=== PATIENT | male | born 1950 | race Caucasian/White ===

== ENCOUNTER 2016-10-22 13:59 | Inpatient (IN) | payer MEDICARE, OTHER ==
[~2016-10-22] VITALS: Ht 170.2 cm; Wt 76.0 kg
[~2016-10-22 13:59] MED LIST: GLIM2TAB PO; LANS30CA47 PO; METF500T4 PO; PROP40TA4 PO; TYL500 PO
[2016-10-22] MEDS ORDERED: morphine 2 MG INJ IV STA (14:44)
[2016-10-22] MEDS ORDERED: morphine 4 MG/ML VIAL IV STA (14:44)
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
[2016-10-22 15:43] LABS: ADD SCAN DIFF NO
[2016-10-22 15:46] LABS: HEMATOCRIT 43.2 % (42.0-52.0); MEAN CORPUSCULAR HEMOGLOBIN 27.3 pg (29.0-33.0); MEAN CORPUSCULAR HGB CONC 32.4 g/dl (32.0-37.0); MEAN CORPUSCULAR VOLUME 84.2 fl (82.0-101.0); PLATELET COUNT 140 10^3/UL (140-415); RED BLOOD COUNT 5.13 10^6/ul (4.70-6.10); RED CELL DISTRIBUTION WIDTH 12.7 % (11.5-14.5); WHITE BLOOD COUNT 7.6 10^3/ul (4.8-10.8)
[2016-10-22 16:01] LABS: INR 0.94; PROTIME 12.6 Sec (12.2-14.2)
[2016-10-22 16:02] LABS: MEAN PLATELET VOLUME 10.5 fl (7.4-10.4); PARTIAL THROMBOPLASTIN TIME 25.9 Sec (25.0-35.0)
[2016-10-22 16:06] LABS: ALBUMIN 4.9 g/dl (3.3-4.9); ALBUMIN/GLOBULIN RATIO 1.96; BILIRUBIN,INDIRECT 0.4 mg/dl (0-1.1); BILIRUBIN,TOTAL 0.4 mg/dl (0.2-1.3); CALCIUM 9.6 mg/dl (8.4-10.2); CREATININE 0.99 mg/dl (0.61-1.24); POTASSIUM 4.4 mmol/L (3.5-5.1); TOTAL PROTEIN 7.4 g/dl (6.1-8.1)
--- NOTE | 2016-10-22 16:38 | RADRPT ---
PROCEDURE: XR Hip. CLINICAL INDICATION: Trauma with pain. TECHNIQUE: AP and frog lateral views of the right hip were performed. COMPARISON: No. FINDINGS: A metal clip projects over the right ilium. There are degenerative changes and mild joint space sharon rowing of the right hip. No acute bony fracture is identified. The right SI joint is unremarkable. IMPRESSION: 1. Osteoarthritis of the right hip. 2. Right lower quadrant clip likely related to prior cholecystectomy. 3. No acute bony fracture. RPTAT:AAJJ Physician Antionette Date Time Electronically viewed and signed by Michoacano Lezama Physician on 10/22/2016 16:38 JESUS/
[2016-10-22] MEDS ORDERED: ONDANSETRON (ODT) 4 MG TAB ODT STA (16:45)
[2016-10-22] MEDS ORDERED: HYDROCODONE/APAP (10/325) TAB PO ONE (17:00)
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
[2016-10-22] MEDS ORDERED: METF500T4 PO (18:07)
[2016-10-22] MEDS ORDERED: PROP40TA4 PO (18:07)
[2016-10-22] MEDS ORDERED: PROP20TA4 PO (18:07)
[2016-10-22] MEDS ORDERED: GLIM2TAB PO (18:08)
[2016-10-22 18:11] LABS: EOSINOPHILS # 0.2 10^3/ul (0.0-0.5); LYMPHOCYTES # 1.5 10^3/ul (0.8-2.9); MONOCYTE # 0.2 10^3/ul (0.3-0.9); NEUTROPHIL # 5.6 10^3/ul (1.6-7.5)
[2016-10-22] MEDS ORDERED: DOCUSATE SODIUM 100 MG CAP PO PRN (19:00)
[2016-10-22] MEDS ORDERED: BISACODYL (EC) 5 MG TAB PO PRN (19:00)
[2016-10-22] MEDS ORDERED: ACETAMINOPHEN 325 MG TAB PO PRN (19:00)
[2016-10-22] MEDS ORDERED: NACL 0.9% 3 ML SYG IV SCH (19:00)
[2016-10-22] MEDS ORDERED: BISACODYL 10 MG SUPP PR PRN (19:00)
[2016-10-22] MEDS ORDERED: MAGNESIUM HYDROXIDE 30ML CUP PO PRN (19:00)
[2016-10-22] MEDS ORDERED: NA PHOSPHATE/BIPHOS 133 ML ENEMA PR PRN (19:00)
--- NOTE | 2016-10-22 19:07 | HP ---
Date/Time of Note Date/Time of Note DATE: 10/22/16 TIME: 19:01 Assessment/Plan VTE Prophylaxis VTE Prophylaxis Intervention: SCD's Assessment/Plan Assessment/Plan 66 yo M with pmhx DM2 on PO meds, HTN presented for R leg pain following a fall , found to have R femoral fracture #femur fracture: Dr Ramirez of ortho to see for possible operative intervention Pre Op: per revised risk cardiac index as pt does not have a h/o stroke, CA, CHF , CKD with baseline Cr>2, is not on insulin at home, does not currently have chest pain and has a functional status of >4 mets as evidence by ability to climb a flight of stairs, no further cardiac preoperative testing is indicated for an intermediate risk procedure #DM2: hold oral meds a1c, ssi while NPO #HTN: cont bb FEN NPO pending surgical eval prophx: SCDs only given possible surgery HPI/ROS Admit Date/Time Admit Date/Time Hx of Present Illness 66 yo M with pmhx DM2 on PO meds only, HTN admitted following a mechanical fall earlier today with resultant R leg pain. Pt tripped over a rock in a parking lot at 1 pm. Fell onto his R hip, has been unable to WB on that side since. Did not hit his head, no LOC. No CP/SOB/abd pain/constipation/diarrhea. At baseline pt able to climb a flight of stairs without stopping and walks for 1 hour daily for exercise ROS 10p ROS neg except as per HPI PMH/Family/Social Past Medical History HTN DM2 on PO meds only Past Surgical History Past Surgical Hx: no surgical history Family History Significant Family History: no pertinent family hx Social History lives in [place] with his Smoking Status: Never smoker Exam/Review of Systems Vital Signs Vitals Vital Signs Date Time Temp Pulse Resp B/P Pulse Ox O2 Delivery O2 Flow Rate FiO2 10/22/16 18:46 98.3 66 18 138/63 98 Room Air Exam Exam conversation coordinated in Farsi with language line nad MMM EOMI no gross thyromegaly abd ntnd no le edema able to wiggle toes bl medial aspect of R thigh ttp no rashes responds to questions appropriately Labs Result Diagram: 10/22/16 1520 10/22/16 1520 Medications Medications Current Medications Acetaminophen (Tylenol Tab) 650 mg Q6H PRN PO PAIN LEVEL 1-3 OR FEVER; Start at 19:00; Status UNV Acetaminophen/ Hydrocodone Bitart ([place] (5/325)) 1 tab Q6H PRN PO MODERATE PAIN LEVEL 4-6; Start 10/22/16 at 19:00; Status UNV Morphine Sulfate (morphine) 2 mg Q4H PRN IV SEVERE PAIN LEVEL 7-10; Start at 19:00; Status UNV Docusate Sodium (Colace) 100 mg Q12H PRN PO CONSTIPATION; Start 10/22/16 at 19: 00; Status UNV Magnesium Hydroxide (Milk Of Mag) 30 ml DAILY PRN PO CONSTIPATION; Start at 19:00; Status UNV Bisacodyl (Dulcolax) 5 mg DAILY PRN PO CONSTIPATION; Start 10/22/16 at 19:00; Status UNV Bisacodyl (Dulcolax Supp) 10 mg DAILY PRN [place] CONSTIPATION; Start 10/22/16 at 19: 00; Status UNV Sodium Biphosphate/ Sodium Phosphate (Fleet Enema) 133 ml DAILY PRN [place] CONSTIPATION; Start 10/22/16 at 19:00; Status UNV Propranolol HCl (Inderal) 40 mg DAILY PO ; Start 10/23/16 at 09:00; Status UNV Procedures Procedures CT R leg with femoral fracture SIRISHA MEZA MD Oct 22, 2016 19:07
--- NOTE | 2016-10-22 19:12 | RADRPT ---
PROCEDURE: XR Chest. CLINICAL INDICATION: Preop TECHNIQUE: Single AP portable chest COMPARISON: 03/28/2014 Chest x-ray FINDINGS: The cardiomediastinal silhouette is within normal limits of size. Atherosclerotic calcification of t he aorta. The lungs are clear without pleural effusion or focal consolidation. No pneumothorax. The osseous structures and soft tissues are unremarkable. IMPRESSION: 1. No evidence for active cardiopulmonary disease. RPTAT:AAJJ Hill Srinivasan Physician Date Time Electronically viewed and signed by Hill Srinivasan Physician on 10/22/2016 19:12 MARY JO/
[2016-10-22 20:25] VITALS: TEMP 98.1
[2016-10-22] MEDS ORDERED: INSULIN ASPART [NOVOLOG] 3 ML PEN SC SCH (21:00)
[2016-10-22] MEDS ORDERED: GLUCOSE GEL 15 GRAM TUBE PO PRN ×2 (21:30)
[2016-10-22] MEDS ORDERED: GLUCAGON 1 MG INJ IM PRN (21:30)
[2016-10-22] MEDS ORDERED: GLUCOSE GEL 15 GRAM TUBE BUCCAL PRN (21:30)
[2016-10-22] MEDS ORDERED: DEXTROSE 50% 50 ML SYRINGE IV PRN ×2 (21:30)
[2016-10-22] MEDS: morphine 2 MG INJ IV PRN (21:39)
[2016-10-22] MEDS: HYDROCODONE/APAP (5/325) TAB PO PRN (23:19)
[2016-10-22] MEDS ORDERED: SOD CHLORIDE 0.9% 1,000 ML IV SCH (23:30)
[2016-10-22] MEDS: PROPRANOLOL 40 MG TAB PO SCH (23:48)
[2016-10-23 01:51] VITALS: Ht 170.2 cm; Wt 76.0 kg
[2016-10-23] MEDS ORDERED: ACCU-CHEK XX SCH (02:00)
[2016-10-23 02:04] VITALS: BP 155/74; PULSE 63; RESP 18
[2016-10-23] MEDS: morphine 2 MG INJ IV PRN ×3 (02:46→07:53)
[2016-10-23] MEDS: INSULIN ASPART [NOVOLOG] 3 ML PEN SC SCH ×5 (05:15→20:35)
[2016-10-23] MEDS: HYDROCODONE/APAP (5/325) TAB PO PRN ×3 (05:18→16:22)
[2016-10-23 08:14] VITALS: BP 143/74; RESP 20
--- NOTE | 2016-10-23 08:37 | CONS ---
DATE OF ADMISSION: 10/22/2016 DATE OF CONSULTATION: 10/22/2016 HISTORY OF PRESENT ILLNESS: The patient is a 66-year-old male who was admitted on 10/22/2016 when tony crouch came to the emergency room complaining of painful limit of motion involving his right hip. Accord ing to the patient, he tripped over a cement block in a parking area and fell, landing on his hip an d landing on his left buttock. Following the fall, he was not able to stand up or walk because of t he severe pain involving the right hip. Denies any history of chest pain, dizziness or other areas of pain. He has a history of diabetes mellitus, which is under fair control, and hypertension. He also had a history of colon cancer which was treated with a subtotal colectomy. He also had a kaitlin cystectomy in the past. My examination revealed a rather pleasant 66-year-old male, who is alert and oriented. He is not in any acute distress. There was tenderness and swelling around the right hip. There was no obvious shortness of the right lower extremity. There was no abnormal rotation. There was no neurovascular compromise involving the right lower extremity. DIAGNOSTIC STUDIES: X-rays of the area, right hip and CT scan revealed the presence of a fracture i nvolving the intertrochanteric area. DIAGNOSTIC IMPRESSION: Intertrochanteric fracture of the right hip. TREATMENT PLAN: Carry out open reduction and internal fixation at the earliest convenience. Dictated By: ADRIANA LIVINGSTON/CHARLIE Conf#: [id number] DID#: [id number]
[2016-10-23] MEDS ORDERED: VITAMIN A & D 5 GM OINT PACKET TOP ONE (08:46)
[2016-10-23] MEDS: PROPRANOLOL 40 MG TAB PO SCH (08:51)
[2016-10-23] MEDS: D5W-0.45 NACL + KCL 10 MEQ 1,000 ML IV SCH ×2 (12:01→20:01)
[2016-10-23] MEDS ORDERED: HYDROCODONE/APAP (5/325) TAB PO PRN (12:30)
[2016-10-23] MEDS ORDERED: HYDROmorphONE 1 MG/ML SYG IV PRN (12:30)
[2016-10-23] MEDS ORDERED: NACL 0.9% 3 ML SYG IV SCH (12:30)
[2016-10-23] MEDS: CEFAZOLIN 1 GM/50 ML (PMX) 50 ML IVPB SCH ×2 (13:01→20:05)
--- NOTE | 2016-10-23 13:50 | RADRPT ---
PROCEDURE: XR Pelvis. CLINICAL INDICATION: Postoperative evaluation TECHNIQUE: Single AP view of the pelvis. COMPARISON: CT of the pelvis dated October 22, 2016 FINDINGS: The patients known intertrochanteric right proximal femur fracture is not as well seen on plain film s as prior CT. Joint spaces are preserved. The soft tissues are grossly unremarkable. IMPRESSION: Known right intertrochanteric proximal femur fractures better seen on prior CT. Alignment is anatom ic. RPTAT: UU .Bora Reyna MD, Date Time Electronically viewed and signed by .Bora Reyna MD, on 10/23/2016 13:50 .K/
--- NOTE | 2016-10-23 15:50 | PN ---
Date/Time of Note Date/Time of Note DATE: 10/23/16 TIME: 15:47 Assessment/Plan VTE Prophylaxis VTE Prophylaxis Intervention: LMWH Lines/Catheters IV Catheter Type (from Nrsg): Peripheral IV Assessment/Plan Assessment/Plan 1. Right Intertrochanteric femure fracture 2. S/p Fall 3. Hypertension 4. Type 2 DM Plan: surgery plan is postponed until tomorrow pt can eat NPO after midnight and IVF ordered Pain control with norco, IV morphine Orthopeid Insoo lorraine following NO Further cardiac work up needed, pt is medically cleared for surgery Lovenox for DVT prophylaxis Subjective 24 Hr Interval Summary Free Text/Dictation c/o hip pain, his surgery plan is cancelled, possibel plan for surgery tomorrow Exam/Review of Systems Vital Signs Vitals Vital Signs Date Time Temp Pulse Resp B/P Pulse Ox O2 Delivery O2 Flow Rate FiO2 10/23/16 08:14 98.5 53 20 143/74 96 10/23/16 02:04 Room Air Intake and Output 10/22/16 10/22/16 10/23/16 15:00 23:00 07:00 Intake Total 790 ml Output Total 500 ml Balance 290 ml Exam conversation coordinated in Far with language line nad MMM EOMI no gross thyromegaly abd ntnd no le edema able to wiggle toes bl medial aspect of R thigh ttp no rashes responds to questions appropriately Results Result Diagram: 10/22/16 1520 10/22/16 1520 Results 24 hrs Laboratory Tests Test 10/22/16 23:03 10/22/16 23:51 10/23/16 01:20 10/23/16 04:45 Bedside Glucose 211 302 H 308 H Hemoglobin A1c 8.9 H Test 10/23/16 05:12 10/23/16 08:44 10/23/16 12:41 Bedside Glucose 195 163 178 Medications Medications Current Medications Acetaminophen (Tylenol Tab) 650 mg Q6H PRN PO PAIN LEVEL 1-3 OR FEVER; Start at 19:00 Acetaminophen/ Hydrocodone Bitart ([place] (5/325)) 1 tab Q6H PRN PO MODERATE PAIN LEVEL 4-6 Last administered on 10/23/16t 05:18; Admin Dose 1 TAB; Start 10/22 at 19:00 Docusate Sodium (Colace) 100 mg Q12H PRN PO CONSTIPATION; Start 10/22/16 at 19: 00 Magnesium Hydroxide (Milk Of Mag) 30 ml DAILY PRN PO CONSTIPATION; Start at 19:00 Bisacodyl (Dulcolax) 5 mg DAILY PRN PO CONSTIPATION; Start 10/22/16 at 19:00 Bisacodyl (Dulcolax Supp) 10 mg DAILY PRN [place] CONSTIPATION; Start 10/22/16 at 19: 00 Sodium Biphosphate/ Sodium Phosphate (Fleet Enema) 133 ml DAILY PRN [place] CONSTIPATION; Start 10/22/16 at 19:00 Propranolol HCl (Inderal) 40 mg DAILY PO Last administered on 10/23/16 08:51; Admin Dose 40 MG; Start 10/22/16 at 23:10 Miscellaneous Information 1 ea NOTE XX ; Start 10/22/16 at 21:30 Glucose (Glutose) 15 gm Q15M PRN PO DECREASED GLUCOSE; Start 10/22/16 at 21:30 Glucose (Glutose) 22.5 gm Q15M PRN PO DECREASED GLUCOSE; Start 10/22/16 at 21:30 Dextrose (D50w Syringe) 25 ml Q15M PRN IV DECREASED GLUCOSE; Start 10/22/16 at 21:30 Dextrose (D50w Syringe) 50 ml Q15M PRN IV DECREASED GLUCOSE; Start 10/22/16 at 21:30 Glucagon (Glucagen) 1 mg Q15M PRN IM DECREASED GLUCOSE; Start 10/22/16 at 21:30 Glucose (Glutose) 15 gm Q15M PRN BUCCAL DECREASED GLUCOSE; Start 10/22/16 at 21: 30 Morphine Sulfate (morphine) 2 mg Q2H PRN IV SEVERE PAIN LEVEL 7-10 Last administered on 10/23/16 07:53; Admin Dose 2 MG; Start 10/23/16 at 04:10 Acetaminophen/ Hydrocodone Bitart ([place] (5/325)) 2 tab Q6H PRN PO SEVERE PAIN LEVEL 7-10 Last administered on 10/23/16 10:44; Admin Dose 2 TAB; Start 10/23/16 at 10:30 Diagnostic Test (Pha) 1 ea 1 ea 02 XX ; Start 10/24/16 at 02:00 Potassium Chloride/Dextrose/ Sod Cl (D5-1/2ns + KCl 10 Meq) 1,000 ml @ 125 mls/ hr Q8H IV ; Start 10/23/16 at 12:01 Acetaminophen/ Hydrocodone Bitart ([place] (5/325)) 1 tab Q4H PRN PO PAIN LEVEL 1 -3; Start 10/23/16 at 12:30 Acetaminophen/ Hydrocodone Bitart ([place] (5/325)) 2 tab Q4H PRN PO PAIN LEVEL 4 -7; Start 10/23/16 at 12:30 Hydromorphone HCl 1 mg 1 mg Q3H PRN IV PAIN LEVEL 8-10; Start 10/23/16 at 12:30 Cefazolin Sodium (Ancef 1 Gm/50 ml (Pmx)) 50 ml @ 100 mls/hr Q8H IVPB Last administered on 10/23/16t 13:01; Admin Dose 100 MLS/HR; Start 10/23/16 at 12:30; Stop 10/24/16 at 04:59 Enoxaparin Sodium (Lovenox) 40 mg DAILY SC ; Start 10/24/16 at 09:00 REEMA PERRIN MD Oct 23, 2016 15:50
[2016-10-23 22:48] VITALS: BP 131/73; RESP 20
[2016-10-24] VITALS (24 sets, daily range): BP systolic 99–149; BP diastolic 67–90; PULSE 58–89; RESP 12–20
[2016-10-24] MEDS ORDERED: DEXTROSE 5%-0.45% NACL 1,000 ML IV SCH
[2016-10-24] MEDS: HYDROCODONE/APAP (5/325) TAB PO PRN ×2 (00:12→16:16)
[2016-10-24] MEDS: D5W-0.45 NACL + KCL 10 MEQ 1,000 ML IV SCH ×2 (01:07→04:01)
[2016-10-24] MEDS: INSULIN ASPART [NOVOLOG] 3 ML PEN SC SCH ×6 (01:09→21:23)
[2016-10-24] MEDS ORDERED: ACCU-CHEK XX SCH (02:00)
[2016-10-24] MEDS: CEFAZOLIN 1 GM/50 ML (PMX) 50 ML IVPB SCH ×3 (05:12→17:58)
[2016-10-24 05:56] LABS: ADD SCAN DIFF NO
[2016-10-24 06:11] LABS: BASOPHILS % 0.4 % (0.0-2.0); EOSINOPHILS # 0.1 10^3/ul (0.0-0.5); EOSINOPHILS % 1.9 % (0.0-7.0); HEMATOCRIT 39.5 % (42.0-52.0); HEMOGLOBIN 13.1 g/dl (14.0-18.0); LYMPHOCYTES # 1.4 10^3/ul (0.8-2.9); LYMPHOCYTES % 24.1 % (15.0-51.0); MEAN CORPUSCULAR HEMOGLOBIN 27.6 pg (29.0-33.0); MEAN CORPUSCULAR HGB CONC 33.2 g/dl (32.0-37.0); MEAN CORPUSCULAR VOLUME 83.3 fl (82.0-101.0); MEAN PLATELET VOLUME 10.6 fl (7.4-10.4); MONOCYTE # 0.6 10^3/ul (0.3-0.9); MONOCYTES % 11.3 % (0.0-11.0); NEUTROPHIL # 3.5 10^3/ul (1.6-7.5); NEUTROPHILS % 62.1 % (39.0-77.0); PLATELET COUNT 113 10^3/UL (140-415); RED BLOOD COUNT 4.74 10^6/ul (4.70-6.10); RED CELL DISTRIBUTION WIDTH 12.3 % (11.5-14.5); WHITE BLOOD COUNT 5.7 10^3/ul (4.8-10.8)
[2016-10-24] MEDS ORDERED: POLYMYXIN/BACITRACIN 1L IRRIG ONE (06:11)
[2016-10-24 06:24] LABS: ALBUMIN/GLOBULIN RATIO 1.9; BILIRUBIN,INDIRECT 0.8 mg/dl (0-1.1); BILIRUBIN,TOTAL 0.8 mg/dl (0.2-1.3); CALCIUM 8.6 mg/dl (8.4-10.2); CREATININE 0.84 mg/dl (0.61-1.24); POTASSIUM 4.4 mmol/L (3.5-5.1); TOTAL PROTEIN 6.1 g/dl (6.1-8.1)
[2016-10-24 06:32] LABS: INR 1.07; PROTIME 13.9 Sec (12.2-14.2); PT RATIO 1.1
[2016-10-24 06:33] LABS: PARTIAL THROMBOPLASTIN TIME 30.6 Sec (25.0-35.0)
--- NOTE | 2016-10-24 07:45 | HPN ---
Date/Time of Note Date/Time of Note DATE: 10/24/16 TIME: 07:44 Interval H&P Admission Note Pt. seen H&P reviewed: No system changes AJ MARQUEZ MD Oct 24, 2016 07:45
[2016-10-24] MEDS ORDERED: PROPOFOL 20 ML ONE (07:58)
[2016-10-24] MEDS ORDERED: MEPERIDINE 100 MG INJ ONE (07:58)
[2016-10-24] MEDS ORDERED: LIDOCAINE 2% (SDV) 5 ML INJ ONE (07:58)
[2016-10-24] MEDS ORDERED: MEPERIDINE 25 MG INJ IV PRN (08:00)
[2016-10-24] MEDS ORDERED: ONDANSETRON 4 MG INJ IV PRN (08:00)
[2016-10-24] MEDS ORDERED: morphine (1 MG/ML) 10ML SYRINGE IV PRN ×2 (08:00)
[2016-10-24] MEDS ORDERED: HYDROmorphONE (0.2 MG/ML) 10ML SYG IV PRN (08:00)
[2016-10-24] MEDS ORDERED: FENTAnyl 50 MCG/ML VIAL IV PRN ×2 (08:00)
[2016-10-24] MEDS ORDERED: DIPHENHYDRAMINE 50 MG INJ IV PRN (08:00)
[2016-10-24] MEDS ORDERED: LABETALOL HCL 20MG INJ IV PRN (08:00)
[2016-10-24] MEDS ORDERED: MIDAZOLAM 1 MG/ML 2 ML INJ IV PRN (08:00)
[2016-10-24] MEDS ORDERED: METOCLOPRAMIDE 10 MG INJ IV PRN (08:00)
[2016-10-24] MEDS ORDERED: EPHEDrine SULFATE 50 MG/5 ML SYG IV PRN (08:00)
[2016-10-24] MEDS ORDERED: hydrALAzine 20 MG INJ IV PRN (08:00)
[2016-10-24] MEDS ORDERED: CEFAZOLIN 1 GM INJ ONE (08:16)
--- NOTE | 2016-10-24 08:55 | RADRPT ---
Vent Rate: 55 bpm RR Interval: 0 msec IA Interval: 300 msec QRS Duration: 90 msec QT Interval: 418 msec QTC Interval: 399 msec P-R-T [place]: 33 - -3 - 31 degrees Sinus bradycardia with 1st degree AV block Otherwise normal ECG Electronically Signed By: Arnel Malloy [id number]
[2016-10-24] MEDS ORDERED: ATROPINE 1 MG/10 ML SYRINGE ONE (08:59)
[2016-10-24] MEDS: ENOXAPARIN 40 MG/0.4 ML SYG SC SCH (09:00)
[2016-10-24] MEDS: PROPRANOLOL 40 MG TAB PO SCH (09:00)
[2016-10-24] MEDS ORDERED: NACL 0.9% 3 ML SYG IV SCH (09:30)
[2016-10-24] MEDS ORDERED: oxyCODONE 5 MG TAB PO PRN (09:30)
[2016-10-24] MEDS ORDERED: morphine 2 MG INJ IV PRN (09:30)
[2016-10-24 09:56] LABS: ADD SCAN DIFF NO
[2016-10-24] MEDS: HYDROmorphONE (0.2 MG/ML) 10ML SYG IV PRN ×4 (10:03→10:35)
--- NOTE | 2016-10-24 10:18 | OPR ---
DATE OF OPERATION: 10/24/2016 PREOPERATIVE DIAGNOSIS: Intertrochanteric fracture of the right hip. POSTOPERATIVE DIAGNOSIS: Intertrochanteric fracture of the right hip. OPERATION PERFORMED: Open reduction and internal fixation of the intertrochanteric fracture of the right hip. ANESTHESIA: General anesthesia. SURGEON: Adriana Marquez MD PROCEDURE AND FINDINGS: Under general anesthesia, the patient was placed in supine position upon th e fracture table. Utilizing fracture table and under fluoroscopic control, satisfactory alignment o f the fracture was confirmed. The usual prep and drape was done exposing the right hip and right lower extremity. The intertrocha nteric area of the right hip was approached through the small longitudinal lateral incision. After opening fascia andrzej, tip of the greater trochanter was identified, and through this area, guide dril l was placed into the intramedullary canal. After confirming satisfactory position of this guide dr ill, the opening was enlarged with the cannulated drill, and reamer guide was introduced into the in tramedullary canal. After proper positioning, measurement was made, and it was my estimation that t he 38 cm x 10 mm intramedullary device with 130 degree angle would be the proper choice. After ream ing up to 11.5 mm, the selected intramedullary device in the size of 38 cm x 10 mm was inserted. Ag ain, after proper adjustment, the guide pin for the lag screw was properly positioned, and the measu rements revealed that the proper size of the lag screw should be 95 mm. After reaming along the juanjose de pin, the selected lag screw in the size of 95 mm was inserted, locking the lag screw. After conf irming satisfactory alignment of the fracture and the proper position of the fixation device, and af ter irrigation and hemostasis, closure of the incision was carried out using 0 Vicryl for muscle and fascia and 2-0 Vicryl for subcutaneous tissues. Final skin closure was carried out with skin stapl es. Usual sterile pressure dressings were applied. The patient tolerated the entire procedure very well and was sent to the recovery room in good condition. Dictated By: ADRIANA MARQUEZ MD IK/NTS Conf#: [id number] DID#: [id number]
[2016-10-24 10:19] LABS: CALCIUM 8.6 mg/dl (8.4-10.2); CREATININE 0.86 mg/dl (0.61-1.24); POTASSIUM 4.5 mmol/L (3.5-5.1)
--- NOTE | 2016-10-24 10:29 | RADRPT ---
PROCEDURE: Fluoroscopy CLINICAL INDICATION: ORIF right hip TECHNIQUE: 77 seconds fluoroscopic time utilized by Dr. MARQUEZ for procedure. 5 images/sequences of are submitted. COMPARISON: None FINDINGS: Placement of fixation hardware at the right proximal femur is demonstrated. IMPRESSION: Fluoroscopy utilized by Dr. MARQUEZ for ORIF right proximal femur. Please see procedural report for complete details. RPTAT: QQ .Omid Aguilar MD, MD Date Time Electronically viewed and signed by .Omid Aguilar MD, on 10/24/2016 10:29 .L/
--- NOTE | 2016-10-24 10:43 | RADRPT ---
PROCEDURE: Right hip and femur. CLINICAL INDICATION: Status post ORIF TECHNIQUE: AP view of the right hip and femur is performed. COMPARISON: 10/23/2016 FINDINGS: Fixation hardware is in place in the right femoral head neck and shaft. Post surgical skin simba and soft tissue gas are noted. Alignment is anatomic. No evidence of dislocation.. IMPRESSION: Recent ORIF of right proximal femur. RPTAT: QQ .Omid Aguilar MD, MD Date Time Electronically viewed and signed by .Omid Aguilar MD, on 10/24/2016 10:42 .L/
[2016-10-24 10:56] LABS: BASOPHILS % 0.2 % (0.0-2.0); EOSINOPHILS # 0.1 10^3/ul (0.0-0.5); EOSINOPHILS % 2.3 % (0.0-7.0); HEMATOCRIT 39.9 % (42.0-52.0); HEMOGLOBIN 13.1 g/dl (14.0-18.0); LYMPHOCYTES # 1.5 10^3/ul (0.8-2.9); MEAN CORPUSCULAR HEMOGLOBIN 27.3 pg (29.0-33.0); MEAN CORPUSCULAR HGB CONC 32.8 g/dl (32.0-37.0); MEAN CORPUSCULAR VOLUME 83.3 fl (82.0-101.0); MEAN PLATELET VOLUME 10.5 fl (7.4-10.4); MONOCYTE # 0.6 10^3/ul (0.3-0.9); MONOCYTES % 10.7 % (0.0-11.0); NEUTROPHIL # 3.4 10^3/ul (1.6-7.5); NEUTROPHILS % 60.4 % (39.0-77.0); PLATELET COUNT 115 10^3/UL (140-415); RED BLOOD COUNT 4.79 10^6/ul (4.70-6.10); RED CELL DISTRIBUTION WIDTH 12.6 % (11.5-14.5); WHITE BLOOD COUNT 5.6 10^3/ul (4.8-10.8)
[2016-10-24] MEDS: SOD CHLORIDE 0.9% 1,000 ML IV SCH ×2 (12:08→21:44)
--- NOTE | 2016-10-24 14:57 | PN ---
Date/Time of Note Date/Time of Note DATE: 10/24/16 TIME: 14:54 Assessment/Plan VTE Prophylaxis VTE Prophylaxis Intervention: LMWH Lines/Catheters IV Catheter Type (from Nrsg): Peripheral IV Urinary Cath still in place: No Assessment/Plan Assessment/Plan 1. Right Intertrochanteric femure fracture s/p ORIF by In genia Ramirez POD # 0 2. S/p Fall 3. Hypertension 4. Type 2 DM Plan: s/p surgery today, staretd on diet NS at 60 cc/hr Pain control with norco, IV morphine Lovenox for DVT prophylaxis Subjective 24 Hr Interval Summary Free Text/Dictation s/p Open reduction and internal fixation of the intertrochanteric fracture of the right hip today, currently c/o pain Exam/Review of Systems Vital Signs Vitals Vital Signs Date Time Temp Pulse Resp B/P Pulse Ox O2 Delivery O2 Flow Rate FiO2 10/24/16 10:37 64 15 134/79 94 10/24/16 10:27 Room Air 10/24/16 09:52 8.0 10/24/16 09:33 98.3 Intake and Output 10/23/16 10/23/16 10/24/16 15:00 23:00 07:00 Intake Total 350 ml 1040 ml 550 ml Output Total 400 ml 950 ml Balance 350 ml 640 ml -400 ml Exam Constitutional: alert, other (under the effect of anesthesia) Head: normocephalic Neck: supple Respiratory: clear to auscultation Cardiovascular: regular rate and rhythm Gastrointestinal: soft Musculoskeletal: nl extremities to inspection Neurological: SCARRER II-XII intact Results Result Diagram: 10/24/1645 10/24/16 0945 Results 24 hrs Laboratory Tests Test 10/23/16 17:17 10/23/16 20:10 10/24/16 01:04 10/24/16 05:14 Bedside Glucose 233 H 275 H 210 269 H Test 10/24/16 05:15 10/24/16 07:01 10/24/16 09:45 10/24/16 10:05 White Blood Count 5.7 # 5.6 Red Blood Count 4.74 4.79 Hemoglobin 13.1 L 13.1 L Hematocrit 39.5 L 39.9 L Mean Corpuscular Volume 83.3 83.3 Mean Corpuscular Hemoglobin 27.6 L 27.3 L Mean Corpuscular Hemoglobin Concent 33.2 32.8 Red Cell Distribution Width 12.3 12.6 Platelet Count 113 L 115 L Mean Platelet Volume 10.6 H 10.5 H Neutrophils % 62.1 60.4 Lymphocytes % 24.1 26.0 Monocytes % 11.3 H 10.7 Eosinophils % 1.9 2.3 Basophils % 0.4 0.2 Nucleated Red Blood Cells % 0.0 0.0 Neutrophils # 3.5 3.4 Lymphocytes # 1.4 1.5 Monocytes # 0.6 0.6 Eosinophils # 0.1 0.1 Basophils # 0.0 0.0 Nucleated Red Blood Cells # 0.0 0.0 Prothrombin Time 13.9 Prothrombin Time Ratio 1.1 INR International Normalized Ratio 1.07 Activated Partial Thromboplast Time 30.6 Sodium Level 138 140 Potassium Level 4.4 4.5 Chloride Level 104 105 Carbon Dioxide Level 29 30 Anion Gap 9 10 Blood Urea Nitrogen 15 13 Creatinine 0.84 0.86 Glucose Level 279 H 214 Calcium Level 8.6 8.6 Total Bilirubin 0.8 Direct Bilirubin 0.00 Indirect Bilirubin 0.8 Aspartate Amino Transf (AST/SGOT) 20 Alanine Aminotransferase (ALT/SGPT) 45 Alkaline Phosphatase 40 L Total Protein 6.1 # Albumin 4.0 Globulin 2.10 Albumin/Globulin Ratio 1.90 Bedside Glucose 222 H 203 Test 10/24/16 12:10 Bedside Glucose 208 Medications Medications Current Medications Acetaminophen (Tylenol Tab) 650 mg Q6H PRN PO PAIN LEVEL 1-3 OR FEVER; Start at 19:00 Acetaminophen/ Hydrocodone Bitart ([place] (5/325)) 1 tab Q6H PRN PO MODERATE PAIN LEVEL 4-6 Last administered on 10/23/16t 05:18; Admin Dose 1 TAB; Start 10/22 at 19:00 Docusate Sodium (Colace) 100 mg Q12H PRN PO CONSTIPATION; Start 10/22/16 at 19: 00 Magnesium Hydroxide (Milk Of Mag) 30 ml DAILY PRN PO CONSTIPATION; Start at 19:00 Bisacodyl (Dulcolax) 5 mg DAILY PRN PO CONSTIPATION; Start 10/22/16 at 19:00 Bisacodyl (Dulcolax Supp) 10 mg DAILY PRN [place] CONSTIPATION; Start 10/22/16 at 19: 00 Sodium Biphosphate/ Sodium Phosphate (Fleet Enema) 133 ml DAILY PRN [place] CONSTIPATION; Start 10/22/16 at 19:00 Propranolol HCl (Inderal) 40 mg DAILY PO Last administered on 10/23/16 08:51; Admin Dose 40 MG; Start 10/22/16 at 23:10 Miscellaneous Information 1 ea NOTE XX ; Start 10/22/16 at 21:30 Glucose (Glutose) 15 gm Q15M PRN PO DECREASED GLUCOSE; Start 10/22/16 at 21:30 Glucose (Glutose) 22.5 gm Q15M PRN PO DECREASED GLUCOSE; Start 10/22/16 at 21:30 Dextrose (D50w Syringe) 25 ml Q15M PRN IV DECREASED GLUCOSE; Start 10/22/16 at 21:30 Dextrose (D50w Syringe) 50 ml Q15M PRN IV DECREASED GLUCOSE; Start 10/22/16 at 21:30 Glucagon (Glucagen) 1 mg Q15M PRN IM DECREASED GLUCOSE; Start 10/22/16 at 21:30 Glucose (Glutose) 15 gm Q15M PRN BUCCAL DECREASED GLUCOSE; Start 10/22/16 at 21: 30 Morphine Sulfate (morphine) 2 mg Q2H PRN IV SEVERE PAIN LEVEL 7-10 Last administered on 10/23/16 07:53; Admin Dose 2 MG; Start 10/23/16 at 04:10 Acetaminophen/ Hydrocodone Bitart ([place] (5/325)) 2 tab Q6H PRN PO SEVERE PAIN LEVEL 7-10 Last administered on 10/24/16 00:12; Admin Dose 2 TAB; Start 10/23/16 at 10:30 Acetaminophen/ Hydrocodone Bitart ([place] (5/325)) 1 tab Q4H PRN PO PAIN LEVEL 1 -3; Start 10/23/16 at 12:30 Acetaminophen/ Hydrocodone Bitart ([place] (5/325)) 2 tab Q4H PRN PO PAIN LEVEL 4 -7; Start 10/23/16 at 12:30 Hydromorphone HCl (Dilaudid) 1 mg Q3H PRN IV PAIN LEVEL 8-10; Start 10/23/16 at 12:30 Enoxaparin Sodium (Lovenox) 40 mg DAILY SC ; Start 10/24/16 at 09:00 Insulin Aspart NOVOLOG *MILD* ALGORI... Q4 SC Last administered on 10/24/16 13: 26; Admin Dose 2 UNIT; Start 10/24/16 at 01:00 Sodium Chloride (NS) 1,000 ml @ 80 mls/hr [id number] IV Last administered on 12:08; Admin Dose 80 MLS/HR; Start 10/24/16 at 09:14 Oxycodone HCl 10 mg 10 mg Q3H PRN PO PAIN LEVEL 4-7; Start 10/24/16 at 09:30 Cefazolin Sodium (Ancef 1 Gm/50 ml (Pmx)) 50 ml @ 100 mls/hr Q8H IVPB Last administered on 10/24/16 10:17; Admin Dose 100 MLS/HR; Start 10/24/16 at 09:30; Stop 10/25/16 at 01:59 Morphine Sulfate (morphine) 2 mg Q3H PRN IV PAIN; Start 10/24/16 at 09:30 REEMA PERRIN MD Oct 24, 2016 14:57
[2016-10-24] MEDS ORDERED: INSULIN ASPART [NOVOLOG] 3 ML PEN SC ONE (23:00)
[2016-10-24] MEDS: INSULIN GLARGINE [LANtus] 3 ML PEN SC SCH (23:49)
[2016-10-25] MEDS: CEFAZOLIN 1 GM/50 ML (PMX) 50 ML IVPB SCH (01:21)
[2016-10-25] MEDS: HYDROCODONE/APAP (5/325) TAB PO PRN ×3 (02:03→13:30)
[2016-10-25] MEDS: SOD CHLORIDE 0.9% 1,000 ML IV SCH ×2 (02:56→14:54)
[2016-10-25] MEDS: ACCU-CHEK XX SCH (02:57)
[2016-10-25 05:34] LABS: ADD SCAN DIFF NO; BASOPHILS % 0.2 % (0.0-2.0); EOSINOPHILS # 0.1 10^3/ul (0.0-0.5); EOSINOPHILS % 0.9 % (0.0-7.0); HEMATOCRIT 31.5 % (42.0-52.0); HEMOGLOBIN 10.8 g/dl (14.0-18.0); LYMPHOCYTES # 1.4 10^3/ul (0.8-2.9); LYMPHOCYTES % 21.9 % (15.0-51.0); MEAN CORPUSCULAR HEMOGLOBIN 28.2 pg (29.0-33.0); MEAN CORPUSCULAR HGB CONC 34.3 g/dl (32.0-37.0); MEAN CORPUSCULAR VOLUME 82.2 fl (82.0-101.0); MEAN PLATELET VOLUME 10.6 fl (7.4-10.4); MONOCYTE # 0.7 10^3/ul (0.3-0.9); NEUTROPHIL # 4.2 10^3/ul (1.6-7.5); NEUTROPHILS % 65.8 % (39.0-77.0); PLATELET COUNT 102 10^3/UL (140-415); RED BLOOD COUNT 3.83 10^6/ul (4.70-6.10); RED CELL DISTRIBUTION WIDTH 12.3 % (11.5-14.5); WHITE BLOOD COUNT 6.4 10^3/ul (4.8-10.8)
[2016-10-25 05:55] LABS: INR 1.05; PROTIME 13.7 Sec (12.2-14.2); PT RATIO 1.1
[2016-10-25 05:56] LABS: PARTIAL THROMBOPLASTIN TIME 29.2 Sec (25.0-35.0)
[2016-10-25 06:00] VITALS: BP 125/67; PULSE 82; RESP 19
[2016-10-25 06:04] LABS: ALBUMIN 3.5 g/dl (3.3-4.9); ALBUMIN/GLOBULIN RATIO 1.59; BILIRUBIN,INDIRECT 0.5 mg/dl (0-1.1); BILIRUBIN,TOTAL 0.5 mg/dl (0.2-1.3); CALCIUM 8.4 mg/dl (8.4-10.2); CREATININE 0.76 mg/dl (0.61-1.24); POTASSIUM 4.1 mmol/L (3.5-5.1); TOTAL PROTEIN 5.7 g/dl (6.1-8.1)
[2016-10-25 07:40] VITALS: BP 143/66; RESP 20
[2016-10-25] MEDS: INSULIN ASPART [NOVOLOG] 3 ML PEN SC SCH ×5 (08:50→21:00)
[2016-10-25] MEDS: ENOXAPARIN 40 MG/0.4 ML SYG SC SCH (08:50)
[2016-10-25] MEDS: PROPRANOLOL 40 MG TAB PO SCH (08:51)
[2016-10-25] MEDS ORDERED: ENOXAPARIN 30 MG/0.3 ML SYG SC SCH (09:00)
--- NOTE | 2016-10-25 18:04 | PN ---
Date/Time of Note Date/Time of Note DATE: 10/25/16 TIME: 18:01 Assessment/Plan VTE Prophylaxis VTE Prophylaxis Intervention: LMWH Lines/Catheters IV [facility] Type [facility] Peripheral IV Urinary Cath still in place: No Assessment/Plan Chief Complaint/Hosp Course Subjective: Leg pain and edema. Refused to participate with PT. Objective: Vital signs stable; sugars elevated Physical examination No pallor Regular Clear Benign Mild edema Assessment and plan 1. Rt femur fracture sp ORIF. Stable treat pain;PT. Snf vs home. Cont Lovenox vs Coumadin. 2. Ground-level fall 3. Diabetes A1c of 8.9/metabolic syndrome. Add scheduled insulin 3. Hypertension 4. Nonadherence 5. Anemia Problems: Exam/Review of Systems Vital Signs Vitals Vital Signs Date Time Temp Pulse Resp B/P Pulse Ox O2 Delivery O2 Flow Rate FiO2 10/25/16 07:40 98.8 82 20 143/66 98 10/25/16 06:00 Room Air 10/24/16 09:52 8.0 Intake and Output 10/24/16 10/24/16 10/25/16 15:00 23:00 07:00 Intake Total 800 ml 1130 ml 1250 ml Output Total 50 ml 580 ml 650 ml Balance 750 ml 550 ml 600 ml Results Result Diagram: 10/25/16 0436 10/25/16 0436 Results 24 hrs Laboratory Tests Test 10/24/16 21:14 10/24/16 23:46 10/25/16 02:53 10/25/16 04:36 Bedside Glucose 307 H 269 H 253 H White Blood Count 6.4 Red Blood Count 3.83 #L Hemoglobin 10.8 L Hematocrit 31.5 #L Mean Corpuscular Volume 82.2 Mean Corpuscular Hemoglobin 28.2 L Mean Corpuscular Hemoglobin Concent 34.3 Red Cell Distribution Width 12.3 Platelet Count 102 L Mean Platelet Volume 10.6 H Neutrophils % 65.8 Lymphocytes % 21.9 Monocytes % 11.0 Eosinophils % 0.9 Basophils % 0.2 Nucleated Red Blood Cells % 0.0 Neutrophils # 4.2 Lymphocytes # 1.4 Monocytes # 0.7 Eosinophils # 0.1 Basophils # 0.0 Nucleated Red Blood Cells # 0.0 Prothrombin Time 13.7 Prothrombin Time Ratio 1.1 INR International Normalized Ratio 1.05 Activated Partial Thromboplast Time 29.2 Sodium Level 136 Potassium Level 4.1 Chloride Level 105 Carbon Dioxide Level 27 Anion Gap 8 Blood Urea Nitrogen 12 Creatinine 0.76 Glucose Level 239 H Calcium Level 8.4 Total Bilirubin 0.5 Direct Bilirubin 0.00 Indirect Bilirubin 0.5 Aspartate Amino Transf (AST/SGOT) 23 Alanine Aminotransferase (ALT/SGPT) 40 Alkaline Phosphatase 37 L Total Protein 5.7 L Albumin 3.5 Globulin 2.20 Albumin/Globulin Ratio 1.59 Test 10/25/16 08:49 10/25/16 12:40 Bedside Glucose 256 H 221 H Medications Medications Current Medications Acetaminophen (Tylenol Tab) 650 mg Q6H PRN PO PAIN LEVEL 1-3 OR FEVER; Start at 19:00 Magnesium Hydroxide (Milk Of Mag) 30 ml DAILY PRN PO CONSTIPATION; Start at 19:00 Bisacodyl (Dulcolax) 5 mg DAILY PRN PO CONSTIPATION; Start 10/22/16 at 19:00 Bisacodyl (Dulcolax Supp) 10 mg DAILY PRN [place] CONSTIPATION; Start 10/22/16 at 19: 00 Sodium Biphosphate/ Sodium Phosphate (Fleet Enema) 133 ml DAILY PRN [place] CONSTIPATION; Start 10/22/16 at 19:00 Propranolol HCl (Inderal) 40 mg DAILY PO Last administered on 10/25/16t 08:51; Admin Dose 40 MG; Start 10/22/16 at 23:10 Miscellaneous Information 1 ea NOTE XX ; Start 10/22/16 at 21:30 Glucose (Glutose) 15 gm Q15M PRN PO DECREASED GLUCOSE; Start 10/22/16 at 21:30 Glucose (Glutose) 22.5 gm Q15M PRN PO DECREASED GLUCOSE; Start 10/22/16 at 21:30 Dextrose (D50w Syringe) 25 ml Q15M PRN IV DECREASED GLUCOSE; Start 10/22/16 at 21:30 Dextrose (D50w Syringe) 50 ml Q15M PRN IV DECREASED GLUCOSE; Start 10/22/16 at 21:30 Glucagon (Glucagen) 1 mg Q15M PRN IM DECREASED GLUCOSE; Start 10/22/16 at 21:30 Glucose (Glutose) 15 gm Q15M PRN BUCCAL DECREASED GLUCOSE; Start 10/22/16 at 21: 30 Morphine Sulfate (morphine) 2 mg Q2H PRN IV SEVERE PAIN LEVEL 7-10 Last administered on 10/23/16 07:53; Admin Dose 2 MG; Start 10/23/16 at 04:10 Acetaminophen/ Hydrocodone Bitart ([place] (5/325)) 1 tab Q4H PRN PO PAIN LEVEL 1 -3; Start 10/23/16 at 12:30 Acetaminophen/ Hydrocodone Bitart ([place] (5/325)) 2 tab Q4H PRN PO PAIN LEVEL 4 -7 Last administered on 10/25/16 13:30; Admin Dose 2 TAB; Start 10/23/16 at 12:30 Hydromorphone HCl (Dilaudid) 1 mg Q3H PRN IV PAIN LEVEL 8-10; Start 10/23/16 at 12:30 Enoxaparin Sodium (Lovenox) 40 mg DAILY SC Last administered on 10/25/16 08:50 ; Admin Dose 40 MG; Start 10/24/16 at 09:00 Oxycodone HCl (Roxicodone) 10 mg Q3H PRN PO PAIN LEVEL 4-7; Start 10/24/16 at 09 :30 Morphine Sulfate (morphine) 2 mg Q3H PRN IV PAIN; Start 10/24/16 at 09:30 Diagnostic Test (Pha) (Accu-Chek) 1 ea 02 XX Last administered on 10/25/16 02: 57; Admin Dose 1 EA; Start 10/25/16 at 02:00 Insulin Glargine (Lantus) 12 unit QHS SC Last administered on 10/24/16 23:49; Admin Dose 12 UNIT; Start 10/24/16 at 23:00 Docusate Sodium (Colace) 100 mg HS PRN PO CONSTIPATION; Start 10/25/16 at 21:00 ; Status UNV Famotidine (Pepcid) 20 mg DAILY PO ; Start 10/26/16 at 09:00; Status UNV Senna/Docusate Sodium (Senokot-S) 2 tab HS PO ; Start 10/25/16 at 21:00; Status UNV IAN JACKSON MD Oct 25, 2016 18:04
[2016-10-25 19:43] VITALS: BP 131/66; RESP 20
[2016-10-25] MEDS: SENNA/DOCUSATE NA (8.6MG/50MG) TAB PO SCH (20:56)
[2016-10-25] MEDS: INSULIN GLARGINE [LANtus] 3 ML PEN SC SCH (20:59)
[2016-10-25] MEDS ORDERED: DOCUSATE SODIUM 100 MG CAP PO PRN (21:00)
[2016-10-26] MEDS: ACCU-CHEK XX SCH (01:37)
[2016-10-26 05:43] LABS: ADD SCAN DIFF NO
[2016-10-26 05:54] LABS: BASOPHILS % 0.4 % (0.0-2.0); EOSINOPHILS # 0.1 10^3/ul (0.0-0.5); EOSINOPHILS % 1.3 % (0.0-7.0); HEMATOCRIT 29.7 % (42.0-52.0); HEMOGLOBIN 10.2 g/dl (14.0-18.0); LYMPHOCYTES # 1.2 10^3/ul (0.8-2.9); LYMPHOCYTES % 22.5 % (15.0-51.0); MEAN CORPUSCULAR HEMOGLOBIN 28.2 pg (29.0-33.0); MEAN CORPUSCULAR HGB CONC 34.3 g/dl (32.0-37.0); MEAN PLATELET VOLUME 10.9 fl (7.4-10.4); MONOCYTE # 0.6 10^3/ul (0.3-0.9); MONOCYTES % 11.3 % (0.0-11.0); NEUTROPHIL # 3.5 10^3/ul (1.6-7.5); NEUTROPHILS % 64.1 % (39.0-77.0); PLATELET COUNT 103 10^3/UL (140-415); RED BLOOD COUNT 3.62 10^6/ul (4.70-6.10); RED CELL DISTRIBUTION WIDTH 12.5 % (11.5-14.5); WHITE BLOOD COUNT 5.5 10^3/ul (4.8-10.8)
[2016-10-26 06:30] LABS: ALBUMIN 3.7 g/dl (3.3-4.9); ALBUMIN/GLOBULIN RATIO 1.6; BILIRUBIN,INDIRECT 0.6 mg/dl (0-1.1); BILIRUBIN,TOTAL 0.6 mg/dl (0.2-1.3); CALCIUM 8.6 mg/dl (8.4-10.2); CREATININE 0.72 mg/dl (0.61-1.24); MAGNESIUM 1.9 mg/dl (1.7-2.5); PHOSPHORUS 2.7 mg/dl (2.5-4.9); POTASSIUM 3.9 mmol/L (3.5-5.1)
[2016-10-26 06:54] LABS: THYROID STIMULATING HORMONE 0.323 MIU/L (0.465-4.680)
[2016-10-26 08:43] VITALS: BP 148/75; RESP 18
[2016-10-26] MEDS: FAMOTIDINE 20 MG TAB PO SCH (09:05)
[2016-10-26] MEDS: ENOXAPARIN 40 MG/0.4 ML SYG SC SCH (09:07)
[2016-10-26] MEDS: PROPRANOLOL 40 MG TAB PO SCH (09:14)
[2016-10-26] MEDS: HYDROCODONE/APAP (5/325) TAB PO PRN ×2 (09:15→20:59)
[2016-10-26] MEDS: INSULIN ASPART [NOVOLOG] 3 ML PEN SC SCH ×7 (09:21→21:05)
--- NOTE | 2016-10-26 14:36 | PN ---
Date/Time of Note Date/Time of Note DATE: 10/26/16 TIME: 14:34 Assessment/Plan VTE Prophylaxis VTE Prophylaxis Intervention: LMWH Lines/Catheters IV Catheter Type (from Nrs): [place] Urinary Cath still in place: No Assessment/Plan Chief Complaint/Hosp Course S: 10/25 leg pain and edema. Refused to participate w PT. 10/26: Better spirits, participating with PT. Left eye hemorrhage noted. No change in vision, no pain with eye movements, no drainage or fever or headache. Does not had any drops routinely. O: Vital signs stable; sugars elevated PE No pallor, adenopathy. Left eye medial subconjunctival hemorrhage? Reg Clear Benign Mild edema A/P 1. Rt femur fracture sp ORIF. Stable treat pain/PT. Snf vs ARU. Cont Lovenox vs Coumadin. 2. Ground-level fall 3. Diabetes A1c of 8.9/metabolic syndrome. Add scheduled insulin 3. Hypertension 4. Nonadherence 5. Anemia 6. Left eye subconjunctival hemorrhage; ophthalmology visit once out of hospital. Problems: Exam/Review of Systems Vital Signs Vitals Vital Signs Date Time Temp Pulse Resp B/P Pulse Ox O2 Delivery O2 Flow Rate FiO2 10/26/16 08:43 98.2 84 18 148/75 97 10/25/16 06:00 Room Air 10/24/16 09:52 8.0 Intake and Output 10/25/16 10/25/16 10/26/16 15:00 23:00 07:00 Intake Total 750 ml 1140 ml 800 ml Output Total 1100 ml 750 ml Balance 750 ml 40 ml 50 ml Results Result Diagram: 10/26/16 0442 10/26/16 0442 Results 24 hrs Laboratory Tests Test 10/25/16 18:00 10/25/16 20:54 10/26/16 01:35 10/26/16 04:42 Bedside Glucose 231 H 289 H 209 White Blood Count 5.5 Red Blood Count 3.62 L Hemoglobin 10.2 L Hematocrit 29.7 L Mean Corpuscular Volume 82.0 Mean Corpuscular Hemoglobin 28.2 L Mean Corpuscular Hemoglobin Concent 34.3 Red Cell Distribution Width 12.5 Platelet Count 103 L Mean Platelet Volume 10.9 H Neutrophils % 64.1 Lymphocytes % 22.5 Monocytes % 11.3 H Eosinophils % 1.3 Basophils % 0.4 Nucleated Red Blood Cells % 0.0 Neutrophils # 3.5 Lymphocytes # 1.2 Monocytes # 0.6 Eosinophils # 0.1 Basophils # 0.0 Nucleated Red Blood Cells # 0.0 Sodium Level 140 Potassium Level 3.9 Chloride Level 107 Carbon Dioxide Level 25 Anion Gap 12 Blood Urea Nitrogen 13 Creatinine 0.72 Glucose Level 200 Hemoglobin A1c 8.9 H Calcium Level 8.6 Phosphorus Level 2.7 Magnesium Level 1.9 Total Bilirubin 0.6 Direct Bilirubin 0.00 Indirect Bilirubin 0.6 Aspartate Amino Transf (AST/SGOT) 30 Alanine Aminotransferase (ALT/SGPT) 42 Alkaline Phosphatase 39 L Total Protein 6.0 L Albumin 3.7 Globulin 2.30 Albumin/Globulin Ratio 1.60 Thyroid Stimulating Hormone (TSH) 0.323 L Test 10/26/16 09:04 10/26/16 13:03 Bedside Glucose 245 H 234 H Medications Medications Current Medications Acetaminophen (Tylenol Tab) 650 mg Q6H PRN PO PAIN LEVEL 1-3 OR FEVER Last administered on 10/25/16 20:12; Admin Dose 650 MG; Start 10/22/16 at 19:00 Magnesium Hydroxide (Milk Of Mag) 30 ml DAILY PRN PO CONSTIPATION; Start at 19:00 Bisacodyl (Dulcolax) 5 mg DAILY PRN PO CONSTIPATION Last administered on 10:25; Admin Dose 5 MG; Start 10/22/16 at 19:00 Bisacodyl (Dulcolax Supp) 10 mg DAILY PRN [place] CONSTIPATION; Start 10/22/16 at 19: 00 Sodium Biphosphate/ Sodium Phosphate (Fleet Enema) 133 ml DAILY PRN [place] CONSTIPATION; Start 10/22/16 at 19:00 Propranolol HCl (Inderal) 40 mg DAILY PO Last administered on 10/26/16 09:14; Admin Dose 40 MG; Start 10/22/16 at 23:10 Miscellaneous Information 1 ea NOTE XX ; Start 10/22/16 at 21:30 Glucose (Glutose) 15 gm Q15M PRN PO DECREASED GLUCOSE; Start 10/22/16 at 21:30 Glucose (Glutose) 22.5 gm Q15M PRN PO DECREASED GLUCOSE; Start 10/22/16 at 21:30 Dextrose (D50w Syringe) 25 ml Q15M PRN IV DECREASED GLUCOSE; Start 10/22/16 at 21:30 Dextrose (D50w Syringe) 50 ml Q15M PRN IV DECREASED GLUCOSE; Start 10/22/16 at 21:30 Glucagon (Glucagen) 1 mg Q15M PRN IM DECREASED GLUCOSE; Start 10/22/16 at 21:30 Glucose (Glutose) 15 gm Q15M PRN BUCCAL DECREASED GLUCOSE; Start 10/22/16 at 21: 30 Morphine Sulfate (morphine) 2 mg Q2H PRN IV SEVERE PAIN LEVEL 7-10 Last administered on 10/23/16 07:53; Admin Dose 2 MG; Start 10/23/16 at 04:10 Acetaminophen/ Hydrocodone Bitart ([place] (5/325)) 1 tab Q4H PRN PO PAIN LEVEL 1 -3; Start 10/23/16 at 12:30 Acetaminophen/ Hydrocodone Bitart ([place] (5/325)) 2 tab Q4H PRN PO PAIN LEVEL 4 -7 Last administered on 10/26/16 09:15; Admin Dose 2 TAB; Start 10/23/16 at 12:30 Hydromorphone HCl (Dilaudid) 1 mg Q3H PRN IV PAIN LEVEL 8-10; Start 10/23/16 at 12:30 Enoxaparin Sodium (Lovenox) 40 mg DAILY SC Last administered on 10/26/16 09:07 ; Admin Dose 40 MG; Start 10/24/16 at 09:00 Oxycodone HCl (Roxicodone) 10 mg Q3H PRN PO PAIN LEVEL 4-7; Start 10/24/16 at 09 :30 Morphine Sulfate (morphine) 2 mg Q3H PRN IV PAIN; Start 10/24/16 at 09:30 Diagnostic Test (Pha) (Accu-Chek) 1 ea 02 XX Last administered on 10/25/16 02: 57; Admin Dose 1 EA; Start 10/25/16 at 02:00 Docusate Sodium (Colace) 100 mg HS PRN PO CONSTIPATION; Start 10/25/16 at 21:00 Famotidine (Pepcid) 20 mg DAILY PO Last administered on 10/26/16 09:05; Admin Dose 20 MG; Start 10/26/16 at 09:00 Senna/Docusate Sodium (Senokot-S) 2 tab HS PO Last administered on 6/5/17at 20: 56; Admin Dose 2 TAB; Start 10/25/16 at 21:00 Insulin Glargine (Lantus) 24 unit QHS SC ; Start 10/26/16 at 21:00 IAN JACKSON MD Oct 26, 2016 14:36
--- NOTE | 2016-10-26 14:39 | PDOCDIS ---
Discharge Instructions DIAGNOSIS Discharge Diagnosis: Rt hip fracture CONDITION Patient Condition: Stable HOME CARE INSTRUCTIONS: Special Diet: 1800 ada ACTIVITY: Activity Restrictions: Slowly Increase Activity FOLLOW UP/APPOINTMENTS Appointments Ophthalmology - 1wk Dr Ramirez -2wks PCP 1wk IAN JACKSON MD Oct 26, 2016 14:39
[2016-10-26] MEDS ORDERED: ENOX40DI12 SC (14:40)
--- NOTE | 2016-10-26 15:18 | DS ---
DATE OF ADMISSION: 10/22/2016 DATE OF DISCHARGE: 10/26/2016 PRIMARY CARE PHYSICIAN: Unknown. AIRCRAFT SERVICER: Dr. Adriana Marquez. DIAGNOSIS ON ADMISSION: Right proximal femur fracture. DIAGNOSES ON DISCHARGE: 1. Right proximal femur fracture. 2. Deconditioning 3. Diabetes/metabolic syndrome. 4. Left subconjunctival hemorrhage. 5. Degenerative joint disease. 6. Thrombocytopenia. 7. Ground level fall. 8. Anemia. 9. Subclinical hyperthyroidism. HOSPITAL COURSE: This is a 66-year-old gentleman who underwent open reduction internal fixation of intertrochanteric fracture, right hip after a mechanical fall. Please see operative report for comp lete details. Postop hospital course has been uncomplicated. The patient's pain is controlled. He is stable for discharge. He is on Lovenox for DVT prophylaxis. Obviously, with his hip fracture, his morbidity and mortality are increased. He has opted to go to either senior care or acute r ehab for rehabilitation. He will need to visit ortho in 2 weeks. Incidentally, his blood sugars le ve been high and his A1c was around 9 on admission and recommended considering insulin long-term as well. Incidentally, he was noted to have left subconjunctival hemorrhage. There is no pain with eye movem ents, drainage or headache or change in vision. I have asked the patient to consider going home and doing home health or senior care therapy for rehab in the hopes that outpatient ophthalmology w ill be easier to obtain as ophthalmology is not available for inpatient consult. However, the patie nt and his family are concerned more about his hip apparently. Therefore, I have elected to go with the route of acute rehabilitation if possible. DISCHARGE PLAN: The patient will be discharged likely to acute rehab versus SNF. DIET: 1800 ADA. ACTIVITY: As instructed. ALLERGIES: None. CODE STATUS: FULL. CONDITION: Stable. BARRIERS TO DISCHARGE: None. PENDING TESTS: None. FUNCTIONAL STATUS: The patient awake, alert agrees to the plan of care. REASON FOR ADMISSION: Hip fracture. IMAGING STUDIES: Right hip shows an intact ORIF. LABORATORY DATA: CMP essentially unremarkable except for protein of 6. TSH noted to be low at 0.32 3. A1c of 8.9. INR 1. White cell count of 5.5, hemoglobin and hematocrit of 10 and 29, MCV 82, pl atelets of 103, which is a little low. STOPPED MEDICATIONS: Amaryl. CONTINUED MEDICATIONS: Propranolol 40 daily. NEW MEDICATIONS: 1. Tylenol as needed. 2. Dulcolax as needed. 3. Lovenox 40 subcutaneous daily. 4. Pepcid 20 daily for maybe 1 week. 5. Percocet for pain. 6. Insulin sliding scale as directed. 7. Lantus 24 nightly. 8. NovoLog 8 units with meals. 9. Senna-S two tablets. Dictated By: IAN JACKSON MD AC/NTS Conf#: [id number] DID#: [id number] CC: ADRIANA MARQUEZ MD;*EndCC*
[2016-10-26 19:40] VITALS: BP 127/64; RESP 19
[2016-10-26] MEDS: SENNA/DOCUSATE NA (8.6MG/50MG) TAB PO SCH ×2 (20:20→20:23)
[2016-10-26] MEDS ORDERED: INSULIN GLARGINE [LANtus] 3 ML PEN SC SCH (21:00)
[2016-10-27] MEDS: ACCU-CHEK XX SCH (02:00)
[2016-10-27 07:25] VITALS: BP 132/72; RESP 19
[2016-10-27] MEDS: FAMOTIDINE 20 MG TAB PO SCH (09:07)
[2016-10-27] MEDS: PROPRANOLOL 40 MG TAB PO SCH (09:07)
[2016-10-27] MEDS: ENOXAPARIN 40 MG/0.4 ML SYG SC SCH (09:14)
[2016-10-27] MEDS: INSULIN ASPART [NOVOLOG] 3 ML PEN SC SCH ×3 (09:14→13:02)
--- NOTE | 2016-10-27 12:20 | PN ---
Date/Time of Note Date/Time of Note DATE: 10/27/16 TIME: 12:19 Assessment/Plan VTE Prophylaxis VTE Prophylaxis Intervention: LMWH Lines/Catheters IV Catheter Type (from Nrsg): Saline Lock Urinary Cath still in place: No Assessment/Plan Chief Complaint/Hosp Course S: 10/25 leg pain and edema. Refused to participate w PT. 10/26: Better spirits, participating with PT. Left eye hemorrhage noted. No change in vision, no pain with eye movements, no drainage or fever or headache. Does not had any drops routinely. 10/27: Improved, participated with PT. Less sub-conjunctival hemorrhage noted medial- upper aspect O: Vss; sugars elevated PE No pallor. Lt eye medial subconjunctival hemorrhage? Reg Clear Benign Mild edema A/P 1. Rt hip fracture sp ORIF. Stable dc to Snf vs ARU. Cont Lovenox vs Coumadin. 2. Ground-level fall 3. Diabetes A1c of 8.9/metabolic syndrome. Add scheduled insulin 3. Hypertension 4. Nonadherence 5. Anemia 6. Lt eye subconjunctival hemorrhage; ophthalmology visit once out of hospital. Problems: Exam/Review of Systems Vital Signs Vitals Vital Signs Date Time Temp Pulse Resp B/P Pulse Ox O2 Delivery O2 Flow Rate FiO2 10/27/16 07:25 98.0 75 19 132/72 98 10/25/16 06:00 Room Air 10/24/16 09:52 8.0 Intake and Output 10/26/16 10/26/16 10/27/16 15:00 23:00 07:00 Intake Total 680 ml 550 ml Output Total 720 ml 450 ml Balance -40 ml 100 ml Results Result Diagram: 10/26/16 0442 10/26/16 0442 Results 24 hrs Laboratory Tests Test 10/26/16 13:03 10/26/16 18:09 10/26/16 20:57 10/27/16 02:21 Bedside Glucose 234 H 197 206 197 Test 10/27/16 04:19 10/27/16 08:52 Free Thyroxine 1.27 Total Triiodothyronine 0.72 L Bedside Glucose 341 H Medications Medications Current Medications Acetaminophen (Tylenol Tab) 650 mg Q6H PRN PO PAIN LEVEL 1-3 OR FEVER Last administered on 10/25/16t 20:12; Admin Dose 650 MG; Start 10/22/16 at 19:00 Magnesium Hydroxide (Milk Of Mag) 30 ml DAILY PRN PO CONSTIPATION; Start at 19:00 Bisacodyl (Dulcolax) 5 mg DAILY PRN PO CONSTIPATION Last administered on 10:25; Admin Dose 5 MG; Start 10/22/16 at 19:00 Bisacodyl (Dulcolax Supp) 10 mg DAILY PRN [place] CONSTIPATION; Start 10/22/16 at 19: 00 Sodium Biphosphate/ Sodium Phosphate (Fleet Enema) 133 ml DAILY PRN [place] CONSTIPATION; Start 10/22/16 at 19:00 Propranolol HCl (Inderal) 40 mg DAILY PO Last administered on 10/27/16 09:07; Admin Dose 40 MG; Start 10/22/16 at 23:10 Miscellaneous Information 1 ea NOTE XX ; Start 10/22/16 at 21:30 Glucose (Glutose) 15 gm Q15M PRN PO DECREASED GLUCOSE; Start 10/22/16 at 21:30 Glucose (Glutose) 22.5 gm Q15M PRN PO DECREASED GLUCOSE; Start 10/22/16 at 21:30 Dextrose (D50w Syringe) 25 ml Q15M PRN IV DECREASED GLUCOSE; Start 10/22/16 at 21:30 Dextrose (D50w Syringe) 50 ml Q15M PRN IV DECREASED GLUCOSE; Start 10/22/16 at 21:30 Glucagon (Glucagen) 1 mg Q15M PRN IM DECREASED GLUCOSE; Start 10/22/16 at 21:30 Glucose (Glutose) 15 gm Q15M PRN BUCCAL DECREASED GLUCOSE; Start 10/22/16 at 21: 30 Morphine Sulfate (morphine) 2 mg Q2H PRN IV SEVERE PAIN LEVEL 7-10 Last administered on 10/23/16 07:53; Admin Dose 2 MG; Start 10/23/16 at 04:10 Acetaminophen/ Hydrocodone Bitart ([place] (5/325)) 1 tab Q4H PRN PO PAIN LEVEL 1 -3 Last administered on 10/27/16 09:07; Admin Dose 1 TAB; Start 10/23/16 at 12:30 Acetaminophen/ Hydrocodone Bitart ([place] (5/325)) 2 tab Q4H PRN PO PAIN LEVEL 4 -7 Last administered on 10/26/16 20:59; Admin Dose 2 TAB; Start 10/23/16 at 12:30 Hydromorphone HCl (Dilaudid) 1 mg Q3H PRN IV PAIN LEVEL 8-10; Start 10/23/16 at 12:30 Enoxaparin Sodium (Lovenox) 40 mg DAILY SC Last administered on 10/27/16 09:14 ; Admin Dose 40 MG; Start 10/24/16 at 09:00 Oxycodone HCl (Roxicodone) 10 mg Q3H PRN PO PAIN LEVEL 4-7; Start 10/24/16 at 09 :30 Morphine Sulfate (morphine) 2 mg Q3H PRN IV PAIN; Start 10/24/16 at 09:30 Diagnostic Test (Pha) (Accu-Chek) 1 ea 02 XX Last administered on 10/25/16 02: 57; Admin Dose 1 EA; Start 10/25/16 at 02:00 Docusate Sodium (Colace) 100 mg HS PRN PO CONSTIPATION; Start 10/25/16 at 21:00 Famotidine (Pepcid) 20 mg DAILY PO Last administered on 10/27/16 09:07; Admin Dose 20 MG; Start 10/26/16 at 09:00 Senna/Docusate Sodium (Senokot-S) 2 tab HS PO Last administered on 10/25/16 20: 56; Admin Dose 2 TAB; Start 10/25/16 at 21:00 Insulin Glargine (Lantus) 24 unit QHS SC Last administered on 10/26/16 21:06; Admin Dose 24 UNIT; Start 10/26/16 at 21:00 IAN JACKSON MD Oct 27, 2016 12:20
[2016-10-27] MEDS ORDERED: INSULIN ASPART [NOVOLOG] 3 ML PEN SC SCH (12:30)
[2016-10-27] MEDS: HYDROCODONE/APAP (5/325) TAB PO PRN (13:50)
[2016-10-27] MEDS ORDERED: NACL 0.9% 3 ML SYG IV SCH (14:50)
[2016-10-27] MEDS ORDERED: INSULIN GLARGINE [LANtus] 3 ML PEN SC SCH (21:00)
== END 2016-10-27 14:50 | DRG 482 ==
LOC: E/R 13:59 → MS1 18:06
PROVIDERS: ADMIT Internal Medicine; ATTEND Internal Medicine
PROC: 0QS606Z Reposition Right Upper Femur with Intramedullary Internal Fixation Device, Open Approach (ICD-10-PCS; principal; 2016-10-24 07:30)
DX: S72.141A Displaced intertrochanteric fracture of right femur, initial encounter for closed fracture (principal); E88.81 Metabolic syndrome and other insulin resistance; D69.6 Thrombocytopenia, unspecified; E11.9 Type 2 diabetes mellitus without complications; I10 Essential (primary) hypertension; D64.9 Anemia, unspecified; M19.90 Unspecified osteoarthritis, unspecified site; E05.90 Thyrotoxicosis, unspecified without thyrotoxic crisis or storm; K21.9 Gastro-esophageal reflux disease without esophagitis; H11.32 Conjunctival hemorrhage, left eye; Z90.49 Acquired absence of other specified parts of digestive tract; Z85.038 Personal history of other malignant neoplasm of large intestine; W18.09XA Striking against other object with subsequent fall, initial encounter; Y92.481 Parking lot as the place of occurrence of the external cause
CPT/HCPCS: 36415; 71010; 72170; 73500; 73510; 73530; 73700; 80048; 80053; 82306; 82962; 83036; 83735; 84100; 84439; 84443; 84480; 85025; 85610; 85730; 93005; 96374; 96376; 97110; 97116; 97162; 97530; C1713; J0461; J0690; J1170; J1650; J1815; J2175; J2270; J2405; J3010; J3480; J7030; J7042

== ENCOUNTER 2016-10-27 13:49 | Inpatient (IN) | payer MEDICARE, OTHER ==
[~2016-10-27] VITALS: Ht 170.2 cm; Wt 78.3 kg
[~2016-10-27 13:49] MED LIST changes: +ENOX40DI12 SC; -GLIM2TAB PO; -LANS30CA47 PO; -TYL500 PO
[2016-10-27 15:20] VITALS: BP 132/84; PULSE 71; RESP 18
[2016-10-27] MEDS ORDERED: BISACODYL 10 MG SUPP PR PRN (17:00)
[2016-10-27] MEDS ORDERED: GLUCOSE GEL 15 GRAM TUBE PO PRN (17:00)
[2016-10-27] MEDS ORDERED: NA PHOSPHATE/BIPHOS 133 ML ENEMA PR PRN (17:00)
[2016-10-27] MEDS ORDERED: morphine 2 MG INJ IV PRN (17:00)
[2016-10-27] MEDS ORDERED: MAGNESIUM HYDROXIDE 30ML CUP PO PRN (17:00)
[2016-10-27] MEDS ORDERED: DEXTROSE 50% 50 ML SYRINGE IV PRN ×2 (17:00)
[2016-10-27] MEDS ORDERED: GLUCAGON 1 MG INJ IM PRN (17:00)
[2016-10-27] MEDS ORDERED: GLUCOSE GEL 15 GRAM TUBE BUCCAL PRN (17:00)
[2016-10-27] MEDS ORDERED: ACETAMINOPHEN 325 MG TAB PO PRN (17:00)
[2016-10-27] MEDS ORDERED: BISACODYL (EC) 5 MG TAB PO PRN (17:00)
[2016-10-27] MEDS ORDERED: HYDROmorphONE 1 MG/ML SYG IV PRN (17:00)
[2016-10-27] MEDS ORDERED: NACL 0.9% 3 ML SYG IV SCH (17:00)
[2016-10-27] MEDS: INSULIN ASPART [NOVOLOG] 3 ML PEN SC SCH ×3 (17:37→20:24)
[2016-10-27 18:11] LABS: ADD UMIC YES; UR BILIRUBIN (Dip) NEGATIVE (NEGATIVE); UR BLOOD (Dip) NEGATIVE (NEGATIVE); UR CLARITY CLEAR (CLEAR); UR COLOR YELLOW (YELLOW); UR KETONES (Dip) NEGATIVE (NEGATIVE); UR LEUKOCYTE ESTERASE (Dip) NEGATIVE (NEGATIVE); UR NITRITE (Dip) NEGATIVE (NEGATIVE); UR TOTAL PROTEIN (Dip) TRACE (NEGATIVE); UR UROBILINOGEN (Dip) 1.0 E.U./dL (0.1-1.0)
[2016-10-27 18:26] LABS: URINE RBCS NONE SEEN /HPF (0)
[2016-10-27] MEDS: HYDROCODONE/APAP (5/325) TAB PO PRN (18:41)
[2016-10-27 20:00] VITALS: BP 115/61; RESP 18
[2016-10-27] MEDS: INSULIN GLARGINE [LANtus] 3 ML PEN SC SCH (20:23)
[2016-10-27] MEDS: SENNA/DOCUSATE NA (8.6MG/50MG) TAB PO SCH ×2 (20:52→21:00)
[2016-10-28] MEDS: HYDROCODONE/APAP (5/325) TAB PO PRN ×4 (01:58→19:40)
[2016-10-28 07:30] VITALS: BP 127/70; RESP 18
[2016-10-28 07:46] LABS: ADD SCAN DIFF NO
[2016-10-28 07:56] LABS: BASOPHILS % 0.4 % (0.0-2.0); EOSINOPHILS # 0.1 10^3/ul (0.0-0.5); EOSINOPHILS % 2.7 % (0.0-7.0); HEMATOCRIT 28.1 % (42.0-52.0); HEMOGLOBIN 9.4 g/dl (14.0-18.0); LYMPHOCYTES # 1.3 10^3/ul (0.8-2.9); LYMPHOCYTES % 26.9 % (15.0-51.0); MEAN CORPUSCULAR HEMOGLOBIN 28.1 pg (29.0-33.0); MEAN CORPUSCULAR HGB CONC 33.5 g/dl (32.0-37.0); MEAN CORPUSCULAR VOLUME 83.9 fl (82.0-101.0); MEAN PLATELET VOLUME 10.5 fl (7.4-10.4); MONOCYTE # 0.5 10^3/ul (0.3-0.9); NEUTROPHIL # 2.9 10^3/ul (1.6-7.5); NEUTROPHILS % 59.8 % (39.0-77.0); PLATELET COUNT 134 10^3/UL (140-415); RED BLOOD COUNT 3.35 10^6/ul (4.70-6.10); RED CELL DISTRIBUTION WIDTH 12.9 % (11.5-14.5); WHITE BLOOD COUNT 4.8 10^3/ul (4.8-10.8)
[2016-10-28] MEDS: INSULIN ASPART [NOVOLOG] 3 ML PEN SC SCH ×7 (08:13→20:51)
[2016-10-28 08:36] LABS: ALBUMIN 3.6 g/dl (3.3-4.9); ALBUMIN/GLOBULIN RATIO 1.5; BILIRUBIN,INDIRECT 0.7 mg/dl (0-1.1); BILIRUBIN,TOTAL 0.7 mg/dl (0.2-1.3); CALCIUM 8.8 mg/dl (8.4-10.2); CREATININE 0.82 mg/dl (0.61-1.24); POTASSIUM 3.6 mmol/L (3.5-5.1)
[2016-10-28] MEDS: FAMOTIDINE 20 MG TAB PO SCH (10:12)
[2016-10-28] MEDS: PROPRANOLOL 40 MG TAB PO SCH (10:14)
[2016-10-28] MEDS: ENOXAPARIN 40 MG/0.4 ML SYG SC SCH (10:14)
--- NOTE | 2016-10-28 12:41 | CONS ---
DATE OF ADMISSION: 10/27/2016 DATE OF CONSULTATION: 10/28/2016 REHABILITATION POST ADMISSION PHYSICIAN EVALUATION REHABILITATION IMPAIRMENT CATEGORY: Right intratrochanteric hip fracture status post ORIF. ACTIVE COMORBIDITIES: 1. Left subconjunctival hemorrhage. 2. Diabetes mellitus type 2. 3. Anemia. 4. Hyperthyroidism. 5. Acute pain syndrome. 6. Impairments in self-care and mobility. HISTORY OF PRESENT ILLNESS: The patient is a pleasant 66-year-old gentleman who is status post a me chanical fall with resultant right intertrochanteric hip fracture. The patient underwent a right hi p ORIF by Dr. Ani Ramirez. The patient's hospital course has been notable for elevated blood sugars, left eye subconjunctival hemorrhage, anemia and significant pain, in addition to significant impairm ents in self-care and mobility as compared to baseline. The patient has been cleared to transfer to the rehabilitation unit for comprehensive interdisciplinary rehab care. FUNCTIONAL HISTORY: Prior to recent events, he was independent in self-care tasks and mobility. Currently, the patient requires minimal to moderate assist for self-care and mobility tasks. I have reviewed the preadmission screen and patient's current functional status is consistent with t he preadmission screen. SOCIAL HISTORY: The patient lives alone and anticipates returning home. PAST MEDICAL HISTORY: 1. Diabetes mellitus type 2. 2. Hyperthyroidism. CURRENT MEDICATIONS: 1. Senokot p.r.n. 2. Lovenox 40 mg subcutaneous daily. 3. Pepcid 20 mg p.o. daily. 4. [place] p.r.n. 5. Insulin sliding scale. 6. Inderal 40 mg p.o. daily. ALLERGIES: PATIENT WITH NO KNOWN DRUG ALLERGIES. PHYSICAL EXAMINATION: VITAL SIGNS: The patient is currently afebrile with stable vital signs. HEENT: Extraocular motion intact. Oropharynx clear. NECK: Supple. LUNGS: Clear anteriorly. CARDIAC: S1, S2. ABDOMEN: Soft, nontender, positive bowel sounds. NEUROLOGIC: He is awake and alert and oriented x3. He can follow simple 1-step commands. He demon strates antigravity strength in bilateral upper extremities and the left lower extremity. Dorsiflex ion and plantar flexion intact on the right. PLAN: The patient has been admitted for comprehensive interdisciplinary acute rehab and is anticipa damian to tolerate 3 hours of daily therapy in divided doses for at least 5 out of 7 days a week. The treatment plan will include: 1. Physical therapy to focus on bed mobility, transfers and household ambulation, with the goal of having the patient reach a standby assist level. 2. Occupational therapy to focus on hygiene, grooming, dressing, bathing and toileting activities, with the goal of having the patient reach a standby assist level. 3. Rehabilitation nursing for carryover of therapeutic interventions, the goal of [place] and bladder, and the goal of pain adequately managed on oral medications. ESTIMATED LENGTH OF STAY: 14 days. DISPOSITION GOAL: Home. REHABILITATION BARRIER: Pain. INTERVENTION FOR BARRIER: Comprehensive interdisciplinary approach. I acknowledge that I performed a full physical examination on this patient within 24 hours of admiss ion to the rehabilitation unit. I believe the patient is a good candidate for comprehensive interdi sciplinary rehab care and is anticipated to make reasonable goals in a reasonable period of time as outlined above. Dictated By: CUAUHTEMOC FINN/CHARLIE Conf#: [id number] DID#: [id number]
--- NOTE | 2016-10-28 13:06 | CONS ---
DATE OF ADMISSION: 10/27/2016 DATE OF CONSULTATION: 10/28/2016 TYPE OF CONSULTATION: Pulmonary. REASON FOR CONSULTATION: Internal medicine management. HISTORY OF PRESENT ILLNESS: This is a pleasant 66-year-old gentleman who came in following a mechan ical fall, sustaining a right hip fracture. He underwent open reduction internal fixation of the in tertrochanteric fracture by Dr. Ani Ramirez, and tolerated the procedure well, without complications. Postoperatively, the patient was beginning to ambulate and now has been transferred to the acute re hab unit for continuing care. PAST MEDICAL HISTORY: 1. New onset diabetes mellitus. 2. Proximal femoral fracture. 3. Subconjunctival hemorrhage. 4. History of anemia. 5. Subclinical hyperthyroidism. ALLERGIES: NONE. SOCIAL HISTORY: He is a nonsmoker. No . No history of drug use. FAMILY HISTORY: Noncontributory. SYSTEMS REVIEW: A 12-point review of systems was negative, other than that mentioned above. PHYSICAL EXAMINATION: GENERAL: Well-nourished, well-developed gentleman, comfortable at rest, in no acute distress. VITAL SIGNS: Currently afebrile, pulse is 66, blood pressure 127/70, O2 saturation 96% on room air. NECK: Supple. No JVD or lymphadenopathy. CARDIAC: S1, S2. No added sounds or murmurs. CHEST: Diminished air entry bilaterally. ABDOMEN: Soft, nontender. No guarding or rebound. EXTREMITIES: No cyanosis, clubbing, or edema. NEUROLOGIC: Generalized weakness. LABORATORY: White count 6.8, hemoglobin 9.4, platelets of 134. Chemistry within normal limits. IMPRESSION AND PLAN: 1. Recent mechanical fall. 2. Status post right open reduction internal fixation. 3. History of metabolic syndrome. PLAN: 1. Continue physical therapy. 2. Deep venous thrombosis and gastrointestinal prophylaxis. 3. Glycemic management. Currently on insulin. 4. Pain control. Dictated By: LUZMARIA STEEL/CHARLIE Conf#: [id number] DID#: [id number]
--- NOTE | 2016-10-28 13:27 | PQ ---
Date/Time of Note Date/Time of Note DATE: 10/28/16 TIME: 10:53 Physician Query Documentation Clarification Dear Dr. Kendrick, A review of the medical record found a need for documentation clarification. DC Summary documentation of anemia S/P ORIF for right hip H/H 1443.2------>10.2/29.7 Please clarify/specify the anemia. To facilitate accurate and complete coding, please jarret ( x ) the suspected diagnosis that apply: ( ) Acute blood loss anemia ( ) Iron deficiency anemia ( ) Anemia in CKD ( ) Others Please provide your response by clicking edit document, making your choice ( x ), click ok/save and finally click sign. You may also document your response on your progress notes. Thank you for your time. With appreciation, See Prado RN, BSN, CCS, CCDS Clinical [employer] Communications Specialist Health Information Management, CDI and Coding Services [phone] Room # 1525 - [address]~ [id number] SEE PRADO Oct 28, 2016 13:27
[2016-10-28 20:01] VITALS: BP 134/65; RESP 18
[2016-10-28] MEDS: SENNA/DOCUSATE NA (8.6MG/50MG) TAB PO SCH (20:47)
[2016-10-28] MEDS: INSULIN GLARGINE [LANtus] 3 ML PEN SC SCH (20:50)
[2016-10-29 07:30] VITALS: BP 152/71; RESP 18
[2016-10-29] MEDS: INSULIN ASPART [NOVOLOG] 3 ML PEN SC SCH ×7 (08:09→20:56)
[2016-10-29] MEDS: HYDROCODONE/APAP (5/325) TAB PO PRN ×3 (08:30→22:45)
[2016-10-29] MEDS: FAMOTIDINE 20 MG TAB PO SCH (08:30)
[2016-10-29] MEDS: ENOXAPARIN 40 MG/0.4 ML SYG SC SCH (08:32)
[2016-10-29] MEDS: PROPRANOLOL 40 MG TAB PO SCH (08:33)
--- NOTE | 2016-10-29 13:30 | CONS ---
Date/Time of Note Date/Time of Note DATE: 10/29/16 TIME: 13:29 Consult Date/Type/Reason Admit Date/Time Oct 27, 2016 at 14:58 Initial Consult Date Subjective comfortable Objective pulm-cta min assist 25 feet Vital Signs Date Time Temp Pulse Resp B/P Pulse Ox O2 Delivery O2 Flow Rate FiO2 10/29/16 07:30 98.7 72 18 152/71 97 10/27/16 15:20 Room Air Nasal Cannula Intake and Output 10/28/16 10/28/16 10/29/16 15:00 23:00 07:00 Intake Total 1220 ml 360 ml Output Total 620 ml 1200 ml Balance 600 ml -840 ml Results/Medications Result Diagram: 10/28/16 0637 10/28/16 0637 Results 24 hrs Laboratory Tests Test 10/28/16 17:31 10/28/16 20:44 10/29/16 02:27 10/29/16 08:02 Bedside Glucose 180 236 H 178 185 Test 10/29/16 11:56 Bedside Glucose 173 Medications Current Medications Acetaminophen (Tylenol Tab) 650 mg Q6H PRN PO PAIN LEVEL 1-3 OR FEVER; Start at 17:00 Magnesium Hydroxide (Milk Of Mag) 30 ml DAILY PRN PO CONSTIPATION; Start at 17:00 Bisacodyl (Dulcolax) 5 mg DAILY PRN PO CONSTIPATION; Start 10/27/16 at 17:00 Bisacodyl (Dulcolax Supp) 10 mg DAILY PRN [place] CONSTIPATION; Start 10/27/16 at 17: 00 Sodium Biphosphate/ Sodium Phosphate (Fleet Enema) 133 ml DAILY PRN [place] CONSTIPATION; Start 10/27/16 at 17:00 Propranolol HCl (Inderal) 40 mg DAILY PO Last administered on 10/29/16t 08:33; Admin Dose 40 MG; Start 10/28/16 at 09:00 Glucose (Glutose) 22.5 gm Q15M PRN PO DECREASED GLUCOSE; Start 10/27/16 at 17:00 Dextrose (D50w Syringe) 25 ml Q15M PRN IV DECREASED GLUCOSE; Start 10/27/16 at 17:00 Dextrose (D50w Syringe) 50 ml Q15M PRN IV DECREASED GLUCOSE; Start 10/27/16 at 17:00 Glucagon (Glucagen) 1 mg Q15M PRN IM DECREASED GLUCOSE; Start 10/27/16 at 17:00 Glucose (Glutose) 15 gm Q15M PRN BUCCAL DECREASED GLUCOSE; Start 10/27/16 at 17: 00 Morphine Sulfate (morphine) 2 mg Q2H PRN IV SEVERE PAIN LEVEL 7-10; Start at 17:00 Acetaminophen/ Hydrocodone Bitart ([place] (5/325)) 1 tab Q4H PRN PO PAIN LEVEL 1 -3 Last administered on 10/28/16 13:34; Admin Dose 1 TAB; Start 10/27/16 at 17:00 Acetaminophen/ Hydrocodone Bitart ([place] (5/325)) 2 tab Q4H PRN PO PAIN LEVEL 4 -7 Last administered on 10/29/16 08:30; Admin Dose 2 TAB; Start 10/27/16 at 17:00 Enoxaparin Sodium (Lovenox) 40 mg DAILY SC Last administered on 10/29/16 08:32 ; Admin Dose 40 MG; Start 10/28/16 at 09:00 Famotidine (Pepcid) 20 mg DAILY PO Last administered on 10/29/16 08:30; Admin Dose 20 MG; Start 10/28/16 at 09:00 Senna/Docusate Sodium (Senokot-S) 2 tab HS PO Last administered on 10/28/16 20: 47; Admin Dose 2 TAB; Start 10/27/16 at 21:00 Insulin Glargine (Lantus) 30 unit QHS SC Last administered on 10/28/16 20:50; Admin Dose 30 UNIT; Start 10/27/16 at 21:00 Miscellaneous Information 1 ea NOTE XX ; Start 10/27/16 at 17:00 Assessment/Plan Additional Assessment/Plan Rehab- Right intratrochanteric hip fracture status post ORIF. Continue rehab program Left subconjunctival hemorrhage. Diabetes mellitus type 2. Anemia. Hyperthyroidism. Acute pain syndrome. CUAUHTEMOC UGARTE MD Oct 29, 2016 13:30
--- NOTE | 2016-10-29 15:35 | CONS ---
Date/Time of Note Date/Time of Note DATE: 10/29/16 TIME: 15:34 Consult Date/Type/Reason Admit Date/Time Oct 27, 2016 at 14:58 Initial Consult Date Type of Consultation: Internal medicine Subjective Patient doing well continues to exercise with physical therapy Objective Vital Signs Date Time Temp Pulse Resp B/P Pulse Ox O2 Delivery O2 Flow Rate FiO2 10/29/16 07:30 98.7 72 18 152/71 97 10/27/16 15:20 Room Air Nasal Cannula Intake and Output 10/28/16 10/28/16 10/29/16 14:59 22:59 06:59 Intake Total 1220 ml 360 ml Output Total 620 ml 1200 ml Balance 600 ml -840 ml Exam PHYSICAL EXAMINATION: GENERAL: Well-nourished, well-developed gentleman, comfortable at rest, in no acute distress. VITAL SIGNS: As above NECK: Supple. No JVD or lymphadenopathy. CARDIAC: S1, S2. No added sounds or murmurs. CHEST: Diminished air entry bilaterally. ABDOMEN: Soft, nontender. No guarding or rebound. EXTREMITIES: No cyanosis, clubbing, or edema. NEUROLOGIC: No focal deficits Results/Medications Result Diagram: 10/28/16 0637 10/28/16 0637 Results 24 hrs Laboratory Tests Test 10/28/16 17:31 10/28/16 20:44 10/29/16 02:27 10/29/16 08:02 Bedside Glucose 180 236 H 178 185 Test 10/29/16 11:56 Bedside Glucose 173 Medications Current Medications Acetaminophen (Tylenol Tab) 650 mg Q6H PRN PO PAIN LEVEL 1-3 OR FEVER; Start at 17:00 Magnesium Hydroxide (Milk Of Mag) 30 ml DAILY PRN PO CONSTIPATION; Start at 17:00 Bisacodyl (Dulcolax) 5 mg DAILY PRN PO CONSTIPATION; Start 10/27/16 at 17:00 Bisacodyl (Dulcolax Supp) 10 mg DAILY PRN [place] CONSTIPATION; Start 10/27/16 at 17: 00 Sodium Biphosphate/ Sodium Phosphate (Fleet Enema) 133 ml DAILY PRN [place] CONSTIPATION; Start 10/27/16 at 17:00 Propranolol HCl (Inderal) 40 mg DAILY PO Last administered on 10/29/16t 08:33; Admin Dose 40 MG; Start 10/28/16 at 09:00 Glucose (Glutose) 22.5 gm Q15M PRN PO DECREASED GLUCOSE; Start 10/27/16 at 17:00 Dextrose (D50w Syringe) 25 ml Q15M PRN IV DECREASED GLUCOSE; Start 10/27/16 at 17:00 Dextrose (D50w Syringe) 50 ml Q15M PRN IV DECREASED GLUCOSE; Start 10/27/16 at 17:00 Glucagon (Glucagen) 1 mg Q15M PRN IM DECREASED GLUCOSE; Start 10/27/16 at 17:00 Glucose (Glutose) 15 gm Q15M PRN BUCCAL DECREASED GLUCOSE; Start 10/27/16 at 17: 00 Morphine Sulfate (morphine) 2 mg Q2H PRN IV SEVERE PAIN LEVEL 7-10; Start at 17:00 Acetaminophen/ Hydrocodone Bitart ([place] (5/325)) 1 tab Q4H PRN PO PAIN LEVEL 1 -3 Last administered on 10/28/16 13:34; Admin Dose 1 TAB; Start 10/27/16 at 17:00 Acetaminophen/ Hydrocodone Bitart ([place] (5/325)) 2 tab Q4H PRN PO PAIN LEVEL 4 -7 Last administered on 10/29/16 14:22; Admin Dose 2 TAB; Start 10/27/16 at 17:00 Enoxaparin Sodium (Lovenox) 40 mg DAILY SC Last administered on 10/29/16 08:32 ; Admin Dose 40 MG; Start 10/28/16 at 09:00 Famotidine (Pepcid) 20 mg DAILY PO Last administered on 10/29/16 08:30; Admin Dose 20 MG; Start 10/28/16 at 09:00 Senna/Docusate Sodium (Senokot-S) 2 tab HS PO Last administered on 10/28/16 20: 47; Admin Dose 2 TAB; Start 10/27/16 at 21:00 Insulin Glargine (Lantus) 30 unit QHS SC Last administered on 10/28/16 20:50; Admin Dose 30 UNIT; Start 10/27/16 at 21:00 Miscellaneous Information 1 ea NOTE XX ; Start 10/27/16 at 17:00 Assessment/Plan Chief Complaint/Hosp Course IMPRESSION AND PLAN: 1. Recent mechanical fall. 2. Status post right open reduction internal fixation. 3. History of metabolic syndrome. PLAN: 1. Continue physical therapy. 2. Deep venous thrombosis and gastrointestinal prophylaxis. Continues Lovenox. 3. Glycemic management. Currently on insulin. Problems: LUZMARIA MARY MD, [facility] Oct 29, 2016 15:35
[2016-10-29 19:50] VITALS: BP 128/68; RESP 16
[2016-10-29] MEDS: SENNA/DOCUSATE NA (8.6MG/50MG) TAB PO SCH (20:52)
[2016-10-29] MEDS: INSULIN GLARGINE [LANtus] 3 ML PEN SC SCH (20:55)
[2016-10-30] MEDS: INSULIN ASPART [NOVOLOG] 3 ML PEN SC SCH ×7 (07:59→21:00)
[2016-10-30] MEDS: ENOXAPARIN 40 MG/0.4 ML SYG SC SCH (08:00)
[2016-10-30] MEDS: FAMOTIDINE 20 MG TAB PO SCH (08:01)
[2016-10-30] MEDS: PROPRANOLOL 40 MG TAB PO SCH (08:01)
[2016-10-30 08:05] VITALS: BP 140/74; PULSE 74; RESP 16
[2016-10-30 08:09] VITALS: BP 140/74; RESP 18
[2016-10-30] MEDS: HYDROCODONE/APAP (5/325) TAB PO PRN (08:30)
--- NOTE | 2016-10-30 12:04 | CONS ---
Date/Time of Note Date/Time of Note DATE: 10/30/16 TIME: 12:04 Consult Date/Type/Reason Admit Date/Time Oct 27, 2016 at 14:58 Type of Consultation: Internal medicine Subjective No new complaints Objective pulm-cta Vital Signs Date Time Temp Pulse Resp B/P Pulse Ox O2 Delivery O2 Flow Rate FiO2 10/30/16 08:09 98.4 73 18 140/74 97 10/30/16 08:05 Room Air Intake and Output 10/29/16 10/29/16 10/30/16 15:00 23:00 07:00 Intake Total 1320 ml Output Total 820 ml 500 ml Balance 500 ml -500 ml Results/Medications Result Diagram: 10/28/1637 10/28/1637 Results 24 hrs Laboratory Tests Test 10/29/16 17:34 10/29/16 20:47 10/30/16 03:32 10/30/16 07:23 Bedside Glucose 142 249 H 154 165 Test 10/30/16 11:58 Bedside Glucose 144 Medications Current Medications Acetaminophen (Tylenol Tab) 650 mg Q6H PRN PO PAIN LEVEL 1-3 OR FEVER; Start at 17:00 Magnesium Hydroxide (Milk Of Mag) 30 ml DAILY PRN PO CONSTIPATION; Start at 17:00 Bisacodyl (Dulcolax) 5 mg DAILY PRN PO CONSTIPATION; Start 10/27/16 at 17:00 Bisacodyl (Dulcolax Supp) 10 mg DAILY PRN [place] CONSTIPATION; Start 10/27/16 at 17: 00 Sodium Biphosphate/ Sodium Phosphate ([place]leet Enema) 133 ml DAILY PRN [place] CONSTIPATION; Start 10/27/16 at 17:00 Propranolol HCl (Inderal) 40 mg DAILY PO Last administered on 10/30/16t 08:01; Admin Dose 40 MG; Start 10/28/16 at 09:00 Glucose (Glutose) 22.5 gm Q15M PRN PO DECREASED GLUCOSE; Start 10/27/16 at 17:00 Dextrose (D50w Syringe) 25 ml Q15M PRN IV DECREASED GLUCOSE; Start 10/27/16 at 17:00 Dextrose (D50w Syringe) 50 ml Q15M PRN IV DECREASED GLUCOSE; Start 10/27/16 at 17:00 Glucagon (Glucagen) 1 mg Q15M PRN IM DECREASED GLUCOSE; Start 10/27/16 at 17:00 Glucose (Glutose) 15 gm Q15M PRN BUCCAL DECREASED GLUCOSE; Start 10/27/16 at 17: 00 Morphine Sulfate (morphine) 2 mg Q2H PRN IV SEVERE PAIN LEVEL 7-10; Start at 17:00 Acetaminophen/ Hydrocodone Bitart ([place] (5/325)) 1 tab Q4H PRN PO PAIN LEVEL 1 -3 Last administered on 10/28/16 13:34; Admin Dose 1 TAB; Start 10/27/16 at 17:00 Acetaminophen/ Hydrocodone Bitart ([place] (5/325)) 2 tab Q4H PRN PO PAIN LEVEL 4 -7 Last administered on 10/30/16 08:30; Admin Dose 2 TAB; Start 10/27/16 at 17: 00 Enoxaparin Sodium (Lovenox) 40 mg DAILY SC Last administered on 10/30/16 08:00 ; Admin Dose 40 MG; Start 10/28/16 at 09:00 Famotidine (Pepcid) 20 mg DAILY PO Last administered on 10/30/16 08:01; Admin Dose 20 MG; Start 10/28/16 at 09:00 Senna/Docusate Sodium (Senokot-S) 2 tab HS PO Last administered on 10/28/16 20: 47; Admin Dose 2 TAB; Start 10/27/16 at 21:00 Insulin Glargine (Lantus) 30 unit QHS SC Last administered on 10/29/16 20:55; Admin Dose 30 UNIT; Start 10/27/16 at 21:00 Miscellaneous Information 1 ea NOTE XX ; Start 10/27/16 at 17:00 Assessment/Plan Additional Assessment/Plan Rehab- Right intratrochanteric hip fracture status post ORIF. Continue rehab Left subconjunctival hemorrhage-improving Diabetes mellitus type 2. Anemia. Hyperthyroidism. Acute pain syndrome. CUAUHTEMOC UGARTE MD Oct 30, 2016 12:04
--- NOTE | 2016-10-30 13:10 | PN ---
Date/Time of Note Date/Time of Note DATE: 10/30/16 TIME: 13:09 Assessment/Plan VTE Prophylaxis VTE Prophylaxis Intervention: LMWH Lines/Catheters IV Catheter Type (from Nrs): Saline Lock Urinary Cath still in place: No Assessment/Plan Problems: (1) Anemia Status: Chronic Comment: Noted. As per Dr. Muse Qualifiers: Anemia type: unspecified type Qualified Code: D64.9 - Anemia, unspecified type (2) Diabetes mellitus type 2 in nonobese Status: Chronic Comment: Good sugar control on current regimen (3) Vitamin D deficiency Status: Chronic Comment: Will supplement with vitamin D to correct this especially given the hip fracture (4) Status post-operative repair of hip fracture Status: Acute Comment: Going through rehab now Subjective 24 Hr Interval Summary Free Text/Dictation Kurtis gentleman ambulating in urena with a walker going to the therapy room Constitutional: no complaints Respiratory: no complaints Cardiovascular: no complaints Gastrointestinal: no complaints Exam/Review of Systems Vital Signs Vitals Vital Signs Date Time Temp Pulse Resp B/P Pulse Ox O2 Delivery O2 Flow Rate FiO2 10/30/16 08:09 98.4 73 18 140/74 97 10/30/16 08:05 Room Air Intake and Output 10/29/16 10/29/16 10/30/16 14:59 22:59 06:59 Intake Total 1320 ml Output Total 820 ml 500 ml Balance 500 ml -500 ml Exam Constitutional: alert Respiratory: clear to auscultation, normal air movement Cardiovascular: nl pulses, regular rate and rhythm Results Result Diagram: 10/28/16 0637 10/28/16 0637 Results 24 hrs Laboratory Tests Test 10/29/16 17:34 10/29/16 20:47 10/30/16 03:32 10/30/16 07:23 Bedside Glucose 142 249 H 154 165 Test 10/30/16 11:58 Bedside Glucose 144 Medications Medications Current Medications Acetaminophen (Tylenol Tab) 650 mg Q6H PRN PO PAIN LEVEL 1-3 OR FEVER; Start at 17:00 Magnesium Hydroxide (Milk Of Mag) 30 ml DAILY PRN PO CONSTIPATION; Start at 17:00 Bisacodyl (Dulcolax) 5 mg DAILY PRN PO CONSTIPATION; Start 10/27/16 at 17:00 Bisacodyl (Dulcolax Supp) 10 mg DAILY PRN [place] CONSTIPATION; Start 10/27/16 at 17: 00 Sodium Biphosphate/ Sodium Phosphate (Fleet Enema) 133 ml DAILY PRN [place] CONSTIPATION; Start 10/27/16 at 17:00 Propranolol HCl (Inderal) 40 mg DAILY PO Last administered on 10/30/16 08:01; Admin Dose 40 MG; Start 10/28/16 at 09:00 Glucose (Glutose) 22.5 gm Q15M PRN PO DECREASED GLUCOSE; Start 10/27/16 at 17:00 Dextrose (D50w Syringe) 25 ml Q15M PRN IV DECREASED GLUCOSE; Start 10/27/16 at 17:00 Dextrose (D50w Syringe) 50 ml Q15M PRN IV DECREASED GLUCOSE; Start 10/27/16 at 17:00 Glucagon (Glucagen) 1 mg Q15M PRN IM DECREASED GLUCOSE; Start 10/27/16 at 17:00 Glucose (Glutose) 15 gm Q15M PRN BUCCAL DECREASED GLUCOSE; Start 10/27/16 at 17: 00 Morphine Sulfate (morphine) 2 mg Q2H PRN IV SEVERE PAIN LEVEL 7-10; Start at 17:00 Acetaminophen/ Hydrocodone Bitart ([place] (5/325)) 1 tab Q4H PRN PO PAIN LEVEL 1 -3 Last administered on 10/28/16 13:34; Admin Dose 1 TAB; Start 10/27/16 at 17:00 Acetaminophen/ Hydrocodone Bitart ([place] (5/325)) 2 tab Q4H PRN PO PAIN LEVEL 4 -7 Last administered on 10/30/16 08:30; Admin Dose 2 TAB; Start 10/27/16 at 17: 00 Enoxaparin Sodium (Lovenox) 40 mg DAILY SC Last administered on 10/30/16 08:00 ; Admin Dose 40 MG; Start 10/28/16 at 09:00 Famotidine (Pepcid) 20 mg DAILY PO Last administered on 10/30/16 08:01; Admin Dose 20 MG; Start 10/28/16 at 09:00 Senna/Docusate Sodium (Senokot-S) 2 tab HS PO Last administered on 10/28/16 20: 47; Admin Dose 2 TAB; Start 10/27/16 at 21:00 Insulin Glargine (Lantus) 30 unit QHS SC Last administered on 10/29/16t 20:55; Admin Dose 30 UNIT; Start 10/27/16 at 21:00 Miscellaneous Information 1 ea NOTE XX ; Start 10/27/16 at 17:00 Ergocalciferol (Drisdol) 50,000 unit Buenrostro@09 PO ; Start 10/31/16 at 09:00; Stop at 08:59; Status STELLA CARL MD Oct 30, 2016 13:10
[2016-10-30 20:00] VITALS: BP 136/63; RESP 20
[2016-10-30] MEDS: SENNA/DOCUSATE NA (8.6MG/50MG) TAB PO SCH (21:00)
[2016-10-30] MEDS: INSULIN GLARGINE [LANtus] 3 ML PEN SC SCH (21:25)
[2016-10-31 08:00] VITALS: BP 133/67; PULSE 80; RESP 18
[2016-10-31] MEDS: INSULIN ASPART [NOVOLOG] 3 ML PEN SC SCH ×7 (08:05→21:00)
[2016-10-31] MEDS: ERGOCALCIFEROL 50,000 UNIT CAP PO SCH (08:45)
[2016-10-31] MEDS: FAMOTIDINE 20 MG TAB PO SCH (08:45)
[2016-10-31] MEDS: PROPRANOLOL 40 MG TAB PO SCH (08:46)
[2016-10-31] MEDS: ENOXAPARIN 40 MG/0.4 ML SYG SC SCH (08:47)
--- NOTE | 2016-10-31 08:55 | PN ---
Date/Time of Note Date/Time of Note DATE: 10/31/16 TIME: 08:54 Assessment/Plan VTE Prophylaxis VTE Prophylaxis Intervention: heparin Lines/Catheters IV Catheter Type (from Nrs): Saline Lock Urinary Cath still in place: No Assessment/Plan Problems: (1) Diabetes mellitus type 2 in nonobese Status: Chronic Comment: Excellent control continue medications (2) Vitamin D deficiency Status: Chronic Comment: Awaiting results of vitamin D level. We may not need to continue supplementation with ergocalciferol (3) Status post-operative repair of hip fracture Status: Acute Comment: Continuing on rehabilitation. Please note he does not have a significantly elevated post void residual Subjective 24 Hr Interval Summary Free Text/Dictation Kurtis martinez sitting in chair very pleasant and animated Constitutional: no complaints Respiratory: no complaints Cardiovascular: no complaints Gastrointestinal: no complaints Exam/Review of Systems Vital Signs Vitals Vital Signs Date Time Temp Pulse Resp B/P Pulse Ox O2 Delivery O2 Flow Rate FiO2 10/30/16 20:00 98.2 71 20 136/63 94 10/30/16 08:05 Room Air Intake and Output 10/30/16 10/30/16 10/31/16 15:00 23:00 07:00 Intake Total 1760 ml 1670 ml 240 ml Output Total 900 ml 920 ml 250 ml Balance 860 ml 750 ml -10 ml Exam Constitutional: alert, oriented Neck: non-tender, supple Respiratory: clear to auscultation, normal air movement Cardiovascular: nl pulses, regular rate and rhythm Gastrointestinal: nl liver, spleen, non-tender, soft Results Result Diagram: 10/28/16 0637 10/28/16 0637 Results 24 hrs Laboratory Tests Test 10/30/16 11:58 10/30/16 17:15 10/30/16 21:20 10/31/16 07:49 Bedside Glucose 144 167 178 174 Medications Medications Current Medications Acetaminophen (Tylenol Tab) 650 mg Q6H PRN PO PAIN LEVEL 1-3 OR FEVER; Start at 17:00 Magnesium Hydroxide (Milk Of Mag) 30 ml DAILY PRN PO CONSTIPATION; Start at 17:00 Bisacodyl (Dulcolax) 5 mg DAILY PRN PO CONSTIPATION; Start 10/27/16 at 17:00 Bisacodyl (Dulcolax Supp) 10 mg DAILY PRN [place] CONSTIPATION; Start 10/27/16 at 17: 00 Sodium Biphosphate/ Sodium Phosphate (Fleet Enema) 133 ml DAILY PRN [place] CONSTIPATION; Start 10/27/16 at 17:00 Propranolol HCl (Inderal) 40 mg DAILY PO Last administered on 10/31/16 08:46; Admin Dose 40 MG; Start 10/28/16 at 09:00 Glucose (Glutose) 22.5 gm Q15M PRN PO DECREASED GLUCOSE; Start 10/27/16 at 17:00 Dextrose (D50w Syringe) 25 ml Q15M PRN IV DECREASED GLUCOSE; Start 10/27/16 at 17:00 Dextrose (D50w Syringe) 50 ml Q15M PRN IV DECREASED GLUCOSE; Start 10/27/16 at 17:00 Glucagon (Glucagen) 1 mg Q15M PRN IM DECREASED GLUCOSE; Start 10/27/16 at 17:00 Glucose (Glutose) 15 gm Q15M PRN BUCCAL DECREASED GLUCOSE; Start 10/27/16 at 17: 00 Morphine Sulfate (morphine) 2 mg Q2H PRN IV SEVERE PAIN LEVEL 7-10; Start at 17:00 Acetaminophen/ Hydrocodone Bitart ([place] (5/325)) 1 tab Q4H PRN PO PAIN LEVEL 1 -3 Last administered on 10/28/16 13:34; Admin Dose 1 TAB; Start 10/27/16 at 17:00 Acetaminophen/ Hydrocodone Bitart ([place] (5/325)) 2 tab Q4H PRN PO PAIN LEVEL 4 -7 Last administered on 10/30/16 08:30; Admin Dose 2 TAB; Start 10/27/16 at 17: 00 Enoxaparin Sodium (Lovenox) 40 mg DAILY SC Last administered on 10/31/16 08:47 ; Admin Dose 40 MG; Start 10/28/16 at 09:00 Famotidine (Pepcid) 20 mg DAILY PO Last administered on 10/31/16 08:45; Admin Dose 20 MG; Start 10/28/16 at 09:00 Senna/Docusate Sodium (Senokot-S) 2 tab HS PO Last administered on 10/28/16 20: 47; Admin Dose 2 TAB; Start 10/27/16 at 21:00 Insulin Glargine (Lantus) 30 unit QHS SC Last administered on 10/30/16 21:25; Admin Dose 30 UNIT; Start 10/27/16 at 21:00 Miscellaneous Information 1 ea NOTE XX ; Start 10/27/16 at 17:00 Ergocalciferol (Drisdol) 50,000 unit Buenrostro@09 PO Last administered on 10/31/16 08 :45; Admin Dose 50,000 UNIT; Start 10/31/16 at 09:00; Stop 01/29/17 at 08:59 STELLA MAC MD Oct 31, 2016 08:55
[2016-10-31] MEDS: HYDROCODONE/APAP (5/325) TAB PO PRN (12:18)
[2016-10-31] MEDS: INSULIN GLARGINE [LANtus] 3 ML PEN SC SCH (20:51)
[2016-10-31 20:52] VITALS: BP 136/71; RESP 16
[2016-10-31] MEDS: SENNA/DOCUSATE NA (8.6MG/50MG) TAB PO SCH (21:00)
[2016-11-01] MEDS: HYDROCODONE/APAP (5/325) TAB PO PRN ×3 (06:11→14:45)
[2016-11-01 07:30] VITALS: BP 111/68; RESP 18
[2016-11-01] MEDS: INSULIN ASPART [NOVOLOG] 3 ML PEN SC SCH ×7 (07:57→20:43)
[2016-11-01] MEDS: FAMOTIDINE 20 MG TAB PO SCH (08:00)
[2016-11-01] MEDS: ENOXAPARIN 40 MG/0.4 ML SYG SC SCH (08:01)
[2016-11-01] MEDS: PROPRANOLOL 40 MG TAB PO SCH (08:01)
[2016-11-01 08:08] VITALS: BP 123/69; PULSE 68; RESP 16
--- NOTE | 2016-11-01 12:06 | CONS ---
Date/Time of Note Date/Time of Note DATE: 11/01/16 TIME: 12:05 Consult Date/Type/Reason Admit Date/Time Oct 27, 2016 at 14:58 Type of Consultation: Internal medicine Objective Vital Signs Date Time Temp Pulse Resp B/P Pulse Ox O2 Delivery O2 Flow Rate FiO2 11/01/16 08:08 68 16 123/69 98 Room Air 10/31/16 20:52 98.5 Intake and Output 10/31/16 10/31/16 11/01/16 15:00 23:00 07:00 Intake Total 1200 ml Output Total 850 ml Balance 350 ml INTERDISCIPLINARY TEAM CONFERENCE BOWEL- Cont BLADDER-Cont SKIN- intact OT- DRESSING-sba/min BATHING-sba/min TOILETING-sba/min PT- BED MOBILITY-min TRANSFERS-min AMBULATION-min 70 feet A/P- Interdisciplinary team conference held today. Please see interdisciplinary sheet. Working toward d.c. on 11/08 with post discharge follow up of physical therapy, occupational therapy. Results/Medications Result Diagram: 10/28/16 0637 10/28/16 0637 Results 24 hrs Laboratory Tests Test 10/31/16 17:10 10/31/16 20:25 11/01/16 07:55 Bedside Glucose 140 140 196 Medications Current Medications Acetaminophen (Tylenol Tab) 650 mg Q6H PRN PO PAIN LEVEL 1-3 OR FEVER; Start at 17:00 Magnesium Hydroxide (Milk Of Mag) 30 ml DAILY PRN PO CONSTIPATION; Start at 17:00 Bisacodyl (Dulcolax) 5 mg DAILY PRN PO CONSTIPATION; Start 10/27/16 at 17:00 Bisacodyl (Dulcolax Supp) 10 mg DAILY PRN [place] CONSTIPATION; Start 10/27/16 at 17: 00 Sodium Biphosphate/ Sodium Phosphate (Fleet Enema) 133 ml DAILY PRN [place] CONSTIPATION; Start 10/27/16 at 17:00 Propranolol HCl (Inderal) 40 mg DAILY PO Last administered on 11/01/16t 08:01; Admin Dose 40 MG; Start 10/28/16 at 09:00 Glucose (Glutose) 22.5 gm Q15M PRN PO DECREASED GLUCOSE; Start 10/27/16 at 17:00 Dextrose (D50w Syringe) 25 ml Q15M PRN IV DECREASED GLUCOSE; Start 10/27/16 at 17:00 Dextrose (D50w Syringe) 50 ml Q15M PRN IV DECREASED GLUCOSE; Start 10/27/16 at 17:00 Glucagon (Glucagen) 1 mg Q15M PRN IM DECREASED GLUCOSE; Start 10/27/16 at 17:00 Glucose (Glutose) 15 gm Q15M PRN BUCCAL DECREASED GLUCOSE; Start 10/27/16 at 17: 00 Morphine Sulfate (morphine) 2 mg Q2H PRN IV SEVERE PAIN LEVEL 7-10; Start at 17:00 Acetaminophen/ Hydrocodone Bitart ([place] (5/325)) 1 tab Q4H PRN PO PAIN LEVEL 1 -3 Last administered on 10/28/16 13:34; Admin Dose 1 TAB; Start 10/27/16 at 17:00 Acetaminophen/ Hydrocodone Bitart ([place] (5/325)) 2 tab Q4H PRN PO PAIN LEVEL 4 -7 Last administered on 11/01/16 10:50; Admin Dose 2 TAB; Start 10/27/16 at 17: 00 Enoxaparin Sodium (Lovenox) 40 mg DAILY SC Last administered on 11/01/16 08:01 ; Admin Dose 40 MG; Start 10/28/16 at 09:00 Famotidine (Pepcid) 20 mg DAILY PO Last administered on 11/01/16 08:00; Admin Dose 20 MG; Start 10/28/16 at 09:00 Senna/Docusate Sodium (Senokot-S) 2 tab HS PO Last administered on 10/28/16 20: 47; Admin Dose 2 TAB; Start 10/27/16 at 21:00 Insulin Glargine (Lantus) 30 unit QHS SC Last administered on 10/31/16 20:51; Admin Dose 30 UNIT; Start 10/27/16 at 21:00 Miscellaneous Information 1 ea NOTE XX ; Start 10/27/16 at 17:00 Ergocalciferol (Drisdol) 50,000 unit Buenrostro@09 PO Last administered on 10/31/16 08 :45; Admin Dose 50,000 UNIT; Start 10/31/16 at 09:00; Stop 01/29/17 at 08:59 CUAUHTEMOC UGARTE MD Nov 01, 2016 12:06
--- NOTE | 2016-11-01 14:01 | CONS ---
Date/Time of Note Date/Time of Note DATE: 11/01/16 TIME: 14:00 Consult Date/Type/Reason Admit Date/Time Oct 27, 2016 at 14:58 Type of Consultation: Internal medicine Subjective Patient comfortable no new events Objective Vital Signs Date Time Temp Pulse Resp B/P Pulse Ox O2 Delivery O2 Flow Rate FiO2 11/01/16 08:08 68 16 123/69 98 Room Air 11/01/16 07:30 98.6 Intake and Output 10/31/16 10/31/16 11/01/16 15:00 23:00 07:00 Intake Total 1200 ml Output Total 850 ml Balance 350 ml Exam GENERAL: VITAL SIGNS: per chart NECK: Supple. No JVD or lymphadenopathy. CARDIAC EXAM: S1, S2. No added sounds or murmurs. CHEST: clear bilaterally, No added sounds, rales or wheezes ABDOMEN: Soft, nontender. No guarding or rebound. EXTREMITIES: No cyanosis, clubbing or edema. NEUROLOGIC: Generalized weakness. No focal deficits. Results/Medications Result Diagram: 10/28/16 0637 10/28/16 0637 Results 24 hrs Laboratory Tests Test 10/31/16 17:10 10/31/16 20:25 11/01/16 07:55 11/01/16 12:11 Bedside Glucose 140 140 196 135 Medications Current Medications Acetaminophen (Tylenol Tab) 650 mg Q6H PRN PO PAIN LEVEL 1-3 OR FEVER; Start at 17:00 Magnesium Hydroxide (Milk Of Mag) 30 ml DAILY PRN PO CONSTIPATION; Start at 17:00 Bisacodyl (Dulcolax) 5 mg DAILY PRN PO CONSTIPATION; Start 10/27/16 at 17:00 Bisacodyl (Dulcolax Supp) 10 mg DAILY PRN [place] CONSTIPATION; Start 10/27/16 at 17: 00 Sodium Biphosphate/ Sodium Phosphate (Fleet Enema) 133 ml DAILY PRN [place] CONSTIPATION; Start 10/27/16 at 17:00 Propranolol HCl (Inderal) 40 mg DAILY PO Last administered on 11/01/16t 08:01; Admin Dose 40 MG; Start 10/28/16 at 09:00 Glucose (Glutose) 22.5 gm Q15M PRN PO DECREASED GLUCOSE; Start 10/27/16 at 17:00 Dextrose (D50w Syringe) 25 ml Q15M PRN IV DECREASED GLUCOSE; Start 10/27/16 at 17:00 Dextrose (D50w Syringe) 50 ml Q15M PRN IV DECREASED GLUCOSE; Start 10/27/16 at 17:00 Glucagon (Glucagen) 1 mg Q15M PRN IM DECREASED GLUCOSE; Start 10/27/16 at 17:00 Glucose (Glutose) 15 gm Q15M PRN BUCCAL DECREASED GLUCOSE; Start 10/27/16 at 17: 00 Morphine Sulfate (morphine) 2 mg Q2H PRN IV SEVERE PAIN LEVEL 7-10; Start at 17:00 Acetaminophen/ Hydrocodone Bitart ([place] (5/325)) 1 tab Q4H PRN PO PAIN LEVEL 1 -3 Last administered on 10/28/16 13:34; Admin Dose 1 TAB; Start 10/27/16 at 17:00 Acetaminophen/ Hydrocodone Bitart ([place] (5/325)) 2 tab Q4H PRN PO PAIN LEVEL 4 -7 Last administered on 11/01/16 10:50; Admin Dose 2 TAB; Start 10/27/16 at 17: 00 Enoxaparin Sodium (Lovenox) 40 mg DAILY SC Last administered on 11/01/16 08:01 ; Admin Dose 40 MG; Start 10/28/16 at 09:00 Famotidine (Pepcid) 20 mg DAILY PO Last administered on 11/01/16 08:00; Admin Dose 20 MG; Start 10/28/16 at 09:00 Senna/Docusate Sodium (Senokot-S) 2 tab HS PO Last administered on 10/28/16 20: 47; Admin Dose 2 TAB; Start 10/27/16 at 21:00 Insulin Glargine (Lantus) 30 unit QHS SC Last administered on 10/31/16 20:51; Admin Dose 30 UNIT; Start 10/27/16 at 21:00 Miscellaneous Information 1 ea NOTE XX ; Start 10/27/16 at 17:00 Ergocalciferol (Drisdol) 50,000 unit Buenrostro@09 PO Last administered on 10/31/16 08 :45; Admin Dose 50,000 UNIT; Start 10/31/16 at 09:00; Stop 01/29/17 at 08:59 Assessment/Plan Chief Complaint/Hosp Course IMPRESSION AND PLAN: 1. Recent mechanical fall. 2. Status post right open reduction internal fixation. 3. History of metabolic syndrome. PLAN: 1. Continue physical therapy. 2. Deep venous thrombosis and gastrointestinal prophylaxis. Continues Lovenox. 3. Glycemic management. Continue current therapy 4. Vitamin D replacement Problems: LUZMARIA MARY MD, [facility] Nov 01, 2016 14:01
[2016-11-01 20:06] VITALS: BP 155/73; RESP 18
[2016-11-01] MEDS: INSULIN GLARGINE [LANtus] 3 ML PEN SC SCH (20:43)
[2016-11-01] MEDS: SENNA/DOCUSATE NA (8.6MG/50MG) TAB PO SCH (21:00)
[2016-11-02] MEDS: HYDROCODONE/APAP (5/325) TAB PO PRN ×3 (05:30→11:24)
[2016-11-02] MEDS: INSULIN ASPART [NOVOLOG] 3 ML PEN SC SCH ×7 (08:06→20:37)
[2016-11-02] MEDS: ENOXAPARIN 40 MG/0.4 ML SYG SC SCH (08:07)
[2016-11-02] MEDS: PROPRANOLOL 40 MG TAB PO SCH (08:08)
[2016-11-02] MEDS: FAMOTIDINE 20 MG TAB PO SCH (08:08)
[2016-11-02 08:22] VITALS: BP 126/64; RESP 18
--- NOTE | 2016-11-02 12:08 | CONS ---
Date/Time of Note Date/Time of Note DATE: 11/02/16 TIME: 12:07 Consult Date/Type/Reason Admit Date/Time Oct 27, 2016 at 14:58 Type of Consultation: Internal medicine Subjective doing well Objective pulm-cta min/cga ambulation Vital Signs Date Time Temp Pulse Resp B/P Pulse Ox O2 Delivery O2 Flow Rate FiO2 11/02/16 08:22 99.1 77 18 126/64 97 11/01/16 08:08 Room Air Intake and Output 11/01/16 11/01/16 11/02/16 15:00 23:00 07:00 Intake Total 1250 ml 650 ml Output Total 1050 ml Balance 200 ml 650 ml Results/Medications Results 24 hrs Laboratory Tests Test 11/01/16 12:11 11/01/16 16:59 11/01/16 20:39 11/02/16 02:13 Bedside Glucose 135 228 H 215 217 Test 11/02/16 06:00 11/02/16 07:46 11/02/16 12:04 Thyroid Stimulating Hormone (TSH) 0.258 L Bedside Glucose 225 H 190 Medications Current Medications Acetaminophen (Tylenol Tab) 650 mg Q6H PRN PO PAIN LEVEL 1-3 OR FEVER Last administered on 11/01/16 21:32; Admin Dose 650 MG; Start 10/27/16 at 17:00 Magnesium Hydroxide (Milk Of Mag) 30 ml DAILY PRN PO CONSTIPATION; Start at 17:00 Bisacodyl (Dulcolax) 5 mg DAILY PRN PO CONSTIPATION; Start 10/27/16 at 17:00 Bisacodyl (Dulcolax Supp) 10 mg DAILY PRN [place] CONSTIPATION; Start 10/27/16 at 17: 00 Sodium Biphosphate/ Sodium Phosphate (Fleet Enema) 133 ml DAILY PRN [place] CONSTIPATION; Start 10/27/16 at 17:00 Propranolol HCl (Inderal) 40 mg DAILY PO Last administered on 11/02/16 08:08; Admin Dose 40 MG; Start 10/28/16 at 09:00 Glucose (Glutose) 22.5 gm Q15M PRN PO DECREASED GLUCOSE; Start 10/27/16 at 17:00 Dextrose (D50w Syringe) 25 ml Q15M PRN IV DECREASED GLUCOSE; Start 10/27/16 at 17:00 Dextrose (D50w Syringe) 50 ml Q15M PRN IV DECREASED GLUCOSE; Start 10/27/16 at 17:00 Glucagon (Glucagen) 1 mg Q15M PRN IM DECREASED GLUCOSE; Start 10/27/16 at 17:00 Glucose (Glutose) 15 gm Q15M PRN BUCCAL DECREASED GLUCOSE; Start 10/27/16 at 17: 00 Morphine Sulfate (morphine) 2 mg Q2H PRN IV SEVERE PAIN LEVEL 7-10; Start at 17:00 Acetaminophen/ Hydrocodone Bitart ([place] (5/325)) 1 tab Q4H PRN PO PAIN LEVEL 1 -3 Last administered on 11/02/16 08:43; Admin Dose 1 TAB; Start 10/27/16 at 17: 00 Acetaminophen/ Hydrocodone Bitart ([place] (5/325)) 2 tab Q4H PRN PO PAIN LEVEL 4 -7 Last administered on 11/02/16 11:24; Admin Dose 2 TAB; Start 10/27/16 at 17: 00 Enoxaparin Sodium (Lovenox) 40 mg DAILY SC Last administered on 11/02/16 08:07 ; Admin Dose 40 MG; Start 10/28/16 at 09:00 Famotidine (Pepcid) 20 mg DAILY PO Last administered on 11/02/16 08:08; Admin Dose 20 MG; Start 10/28/16 at 09:00 Senna/Docusate Sodium (Senokot-S) 2 tab HS PO Last administered on 10/28/16 20: 47; Admin Dose 2 TAB; Start 10/27/16 at 21:00 Insulin Glargine (Lantus) 30 unit QHS SC Last administered on 11/01/16 20:43; Admin Dose 30 UNIT; Start 10/27/16 at 21:00 Miscellaneous Information 1 ea NOTE XX ; Start 10/27/16 at 17:00 Ergocalciferol (Drisdol) 50,000 unit Buenrostro@09 PO Last administered on 10/31/16 08 :45; Admin Dose 50,000 UNIT; Start 10/31/16 at 09:00; Stop 01/29/17 at 08:59 Assessment/Plan Additional Assessment/Plan Rehab- Right intratrochanteric hip fracture status post ORIF. Continue current treatment plan Left subconjunctival hemorrhage-improving Diabetes mellitus type 2. Anemia. Hyperthyroidism. Acute pain syndrome. CUAUHTEMOC UGARTE MD Nov 02, 2016 12:07
--- NOTE | 2016-11-02 15:46 | CONS ---
Date/Time of Note Date/Time of Note DATE: 11/02/16 TIME: 15:45 Consult Date/Type/Reason Admit Date/Time Oct 27, 2016 at 14:58 Type of Consultation: Internal medicine Subjective Patient febrile overnight temperature 101 Afebrile this morning Denies cough fever chills dysuria urgency or frequency. Wound site looks somewhat purulent Objective Vital Signs Date Time Temp Pulse Resp B/P Pulse Ox O2 Delivery O2 Flow Rate FiO2 11/02/16 08:22 99.1 77 18 126/64 97 11/01/16 08:08 Room Air Intake and Output 11/01/16 11/01/16 11/02/16 15:00 23:00 07:00 Intake Total 1250 ml 650 ml Output Total 1050 ml Balance 200 ml 650 ml Exam GENERAL: Well-nourished well-developed gentleman VITAL SIGNS: per chart NECK: Supple. No JVD or lymphadenopathy. CARDIAC EXAM: S1, S2. No added sounds or murmurs. CHEST: clear bilaterally, No added sounds, rales or wheezes ABDOMEN: Soft, nontender. No guarding or rebound. EXTREMITIES: No cyanosis, clubbing or edema. NEUROLOGIC: Left hemiplegia Results/Medications Results 24 hrs Laboratory Tests Test 11/01/16 16:59 11/01/16 20:39 11/02/16 02:13 11/02/16 06:00 Bedside Glucose 228 H 215 217 Thyroid Stimulating Hormone (TSH) 0.258 L Test 11/02/16 07:46 11/02/16 12:04 Bedside Glucose 225 H 190 Medications Current Medications Acetaminophen (Tylenol Tab) 650 mg Q6H PRN PO PAIN LEVEL 1-3 OR FEVER Last administered on 11/01/16t 21:32; Admin Dose 650 MG; Start 10/27/16 at 17:00 Magnesium Hydroxide (Milk Of Mag) 30 ml DAILY PRN PO CONSTIPATION; Start at 17:00 Bisacodyl (Dulcolax) 5 mg DAILY PRN PO CONSTIPATION; Start 10/27/16 at 17:00 Bisacodyl (Dulcolax Supp) 10 mg DAILY PRN [place] CONSTIPATION; Start 10/27/16 at 17: 00 Sodium Biphosphate/ Sodium Phosphate (Fleet Enema) 133 ml DAILY PRN [place] CONSTIPATION; Start 10/27/16 at 17:00 Propranolol HCl (Inderal) 40 mg DAILY PO Last administered on 11/02/16 08:08; Admin Dose 40 MG; Start 10/28/16 at 09:00 Glucose (Glutose) 22.5 gm Q15M PRN PO DECREASED GLUCOSE; Start 10/27/16 at 17:00 Dextrose (D50w Syringe) 25 ml Q15M PRN IV DECREASED GLUCOSE; Start 10/27/16 at 17:00 Dextrose (D50w Syringe) 50 ml Q15M PRN IV DECREASED GLUCOSE; Start 10/27/16 at 17:00 Glucagon (Glucagen) 1 mg Q15M PRN IM DECREASED GLUCOSE; Start 10/27/16 at 17:00 Glucose (Glutose) 15 gm Q15M PRN BUCCAL DECREASED GLUCOSE; Start 10/27/16 at 17: 00 Morphine Sulfate (morphine) 2 mg Q2H PRN IV SEVERE PAIN LEVEL 7-10; Start at 17:00 Acetaminophen/ Hydrocodone Bitart ([place] (5/325)) 1 tab Q4H PRN PO PAIN LEVEL 1 -3 Last administered on 11/02/16 08:43; Admin Dose 1 TAB; Start 10/27/16 at 17: 00 Acetaminophen/ Hydrocodone Bitart ([place] (5/325)) 2 tab Q4H PRN PO PAIN LEVEL 4 -7 Last administered on 11/02/16 11:24; Admin Dose 2 TAB; Start 10/27/16 at 17: 00 Enoxaparin Sodium (Lovenox) 40 mg DAILY SC Last administered on 11/02/16 08:07 ; Admin Dose 40 MG; Start 10/28/16 at 09:00 Famotidine (Pepcid) 20 mg DAILY PO Last administered on 11/02/16 08:08; Admin Dose 20 MG; Start 10/28/16 at 09:00 Senna/Docusate Sodium (Senokot-S) 2 tab HS PO Last administered on 10/28/16 20: 47; Admin Dose 2 TAB; Start 10/27/16 at 21:00 Insulin Glargine (Lantus) 30 unit QHS SC Last administered on 11/01/16 20:43; Admin Dose 30 UNIT; Start 10/27/16 at 21:00 Miscellaneous Information 1 ea NOTE XX ; Start 10/27/16 at 17:00 Ergocalciferol (Drisdol) 50,000 unit Buenrostro@09 PO Last administered on 10/31/16t 08 :45; Admin Dose 50,000 UNIT; Start 10/31/16 at 09:00; Stop 01/29/17 at 08:59 Assessment/Plan Chief Complaint/Hosp Course IMPRESSION AND PLAN: 1. Recent mechanical fall. 2. Status post right open reduction internal fixation. 3. History of metabolic syndrome. 4. Fevers concerning for possible wound infection PLAN: 1. Continue physical therapy. 2. Deep venous thrombosis and gastrointestinal prophylaxis. Continues Lovenox. 3. Glycemic management. Continue current therapy 4. Vitamin D replacement 5. Wound cultures 6. Urinalysis and chest x-ray 7. Empiric Bactrim 7 days pending culture results Problems: LUZMARIA MARY MD, [facility] Nov 02, 2016 15:46
[2016-11-02 16:29] LABS: ADD UMIC YES; UR BILIRUBIN (Dip) NEGATIVE (NEGATIVE); UR BLOOD (Dip) TRACE (NEGATIVE); UR CLARITY CLEAR (CLEAR); UR COLOR YELLOW (YELLOW); UR GLUCOSE (Dip) NEGATIVE (NEGATIVE); UR KETONES (Dip) NEGATIVE (NEGATIVE); UR LEUKOCYTE ESTERASE (Dip) NEGATIVE (NEGATIVE); UR NITRITE (Dip) NEGATIVE (NEGATIVE); UR TOTAL PROTEIN (Dip) TRACE (NEGATIVE); UR UROBILINOGEN (Dip) 1.0 E.U./dL (0.1-1.0)
[2016-11-02 16:45] LABS: UR BACTERIA MANY; UR SQUAMOUS EPITHELIAL CELL FEW; URINE RBCS 0-2 /HPF (0)
[2016-11-02] MEDS: SENNA/DOCUSATE NA (8.6MG/50MG) TAB PO SCH (20:37)
[2016-11-02] MEDS: TRIMETHOPRIM/SULFAMETHOX (DS) TAB PO SCH (20:37)
[2016-11-02] MEDS: INSULIN GLARGINE [LANtus] 3 ML PEN SC SCH (20:38)
[2016-11-02 21:18] VITALS: BP 125/66; RESP 18
[2016-11-03] MEDS: INSULIN ASPART [NOVOLOG] 3 ML PEN SC SCH ×7 (08:14→20:48)
[2016-11-03] MEDS: PROPRANOLOL 40 MG TAB PO SCH (08:16)
[2016-11-03] MEDS: ENOXAPARIN 40 MG/0.4 ML SYG SC SCH (08:16)
[2016-11-03] MEDS: FAMOTIDINE 20 MG TAB PO SCH (08:17)
[2016-11-03] MEDS: HYDROCODONE/APAP (5/325) TAB PO PRN (08:17)
[2016-11-03] MEDS: TRIMETHOPRIM/SULFAMETHOX (DS) TAB PO SCH ×2 (08:17→20:39)
[2016-11-03 10:33] LABS: ADD SCAN DIFF NO
[2016-11-03 10:47] LABS: BASOPHILS % 0.2 % (0.0-2.0); EOSINOPHILS # 0.1 10^3/ul (0.0-0.5); EOSINOPHILS % 1.9 % (0.0-7.0); HEMOGLOBIN 11.8 g/dl (14.0-18.0); LYMPHOCYTES # 1.5 10^3/ul (0.8-2.9); MEAN CORPUSCULAR HEMOGLOBIN 28.2 pg (29.0-33.0); MEAN CORPUSCULAR HGB CONC 32.8 g/dl (32.0-37.0); MEAN CORPUSCULAR VOLUME 86.1 fl (82.0-101.0); MEAN PLATELET VOLUME 10.2 fl (7.4-10.4); MONOCYTE # 0.6 10^3/ul (0.3-0.9); MONOCYTES % 11.6 % (0.0-11.0); NEUTROPHIL # 2.7 10^3/ul (1.6-7.5); NEUTROPHILS % 55.1 % (39.0-77.0); PLATELET COUNT 285 10^3/UL (140-415); RED BLOOD COUNT 4.18 10^6/ul (4.70-6.10); RED CELL DISTRIBUTION WIDTH 13.9 % (11.5-14.5); WHITE BLOOD COUNT 4.8 10^3/ul (4.8-10.8)
--- NOTE | 2016-11-03 10:59 | CONS ---
Date/Time of Note Date/Time of Note DATE: 11/03/16 TIME: 10:59 Consult Date/Type/Reason Admit Date/Time Oct 27, 2016 at 14:58 Type of Consultation: Internal medicine Subjective still with pain Objective pulm-cta min/cga Vital Signs Date Time Temp Pulse Resp B/P Pulse Ox O2 Delivery O2 Flow Rate FiO2 11/02/16 21:18 98.5 70 18 125/66 92 11/01/16 08:08 Room Air Intake and Output 11/02/16 11/02/16 11/03/16 14:59 22:59 06:59 Intake Total 660 ml 600 ml 700 ml Output Total 200 ml Balance 460 ml 600 ml 700 ml Results/Medications Result Diagram: 11/03/16 1000 Results 24 hrs Laboratory Tests Test 11/02/16 12:04 11/02/16 16:07 11/02/16 17:38 11/02/16 20:36 Bedside Glucose 190 167 135 Urine Color YELLOW Urine Clarity CLEAR Urine pH 5.5 Urine Specific [place] >=1.030 H Urine Ketones NEGATIVE Urine Nitrite NEGATIVE Urine Bilirubin NEGATIVE Urine Urobilinogen 1.0 E.U./dL Urine Leukocyte Esterase NEGATIVE Urine Microscopic RBC 0-2 Urine Microscopic WBC NONE SEEN Urine Squamous Epithelial Cells FEW Urine Bacteria MANY Urine Hyaline Casts MANY Urine Fine Granular Casts MODERATE Urine Hemoglobin TRACE Urine Glucose NEGATIVE Urine Total Protein TRACE Test 11/03/16 07:39 11/03/16 10:00 Bedside Glucose 184 White Blood Count 4.8 Red Blood Count 4.18 #L Hemoglobin 11.8 #L Hematocrit 36.0 #L Mean Corpuscular Volume 86.1 Mean Corpuscular Hemoglobin 28.2 L Mean Corpuscular Hemoglobin Concent 32.8 Red Cell Distribution Width 13.9 Platelet Count 285 # Mean Platelet Volume 10.2 Neutrophils % 55.1 Lymphocytes % 31.0 Monocytes % 11.6 H Eosinophils % 1.9 Basophils % 0.2 Nucleated Red Blood Cells % 0.0 Neutrophils # 2.7 Lymphocytes # 1.5 Monocytes # 0.6 Eosinophils # 0.1 Basophils # 0.0 Nucleated Red Blood Cells # 0.0 Medications Current Medications Acetaminophen (Tylenol Tab) 650 mg Q6H PRN PO PAIN LEVEL 1-3 OR FEVER Last administered on 11/01/16t 21:32; Admin Dose 650 MG; Start 10/27/16 at 17:00 Magnesium Hydroxide (Milk Of Mag) 30 ml DAILY PRN PO CONSTIPATION; Start at 17:00 Bisacodyl (Dulcolax) 5 mg DAILY PRN PO CONSTIPATION; Start 10/27/16 at 17:00 Bisacodyl (Dulcolax Supp) 10 mg DAILY PRN [place] CONSTIPATION; Start 10/27/16 at 17: 00 Sodium Biphosphate/ Sodium Phosphate (Fleet Enema) 133 ml DAILY PRN [place] CONSTIPATION; Start 10/27/16 at 17:00 Propranolol HCl (Inderal) 40 mg DAILY PO Last administered on 11/03/16 08:16; Admin Dose 40 MG; Start 10/28/16 at 09:00 Glucose (Glutose) 22.5 gm Q15M PRN PO DECREASED GLUCOSE; Start 10/27/16 at 17:00 Dextrose (D50w Syringe) 25 ml Q15M PRN IV DECREASED GLUCOSE; Start 10/27/16 at 17:00 Dextrose (D50w Syringe) 50 ml Q15M PRN IV DECREASED GLUCOSE; Start 10/27/16 at 17:00 Glucagon (Glucagen) 1 mg Q15M PRN IM DECREASED GLUCOSE; Start 10/27/16 at 17:00 Glucose (Glutose) 15 gm Q15M PRN BUCCAL DECREASED GLUCOSE; Start 10/27/16 at 17: 00 Acetaminophen/ Hydrocodone Bitart ([place] (5/325)) 1 tab Q4H PRN PO PAIN LEVEL 1 -3 Last administered on 11/02/16 08:43; Admin Dose 1 TAB; Start 10/27/16 at 17: 00 Acetaminophen/ Hydrocodone Bitart ([place] (5/325)) 2 tab Q4H PRN PO PAIN LEVEL 4 -7 Last administered on 11/03/16 08:17; Admin Dose 2 TAB; Start 10/27/16 at 17: 00 Enoxaparin Sodium (Lovenox) 40 mg DAILY SC Last administered on 11/03/16 08:16 ; Admin Dose 40 MG; Start 10/28/16 at 09:00 Famotidine (Pepcid) 20 mg DAILY PO Last administered on 11/03/16 08:17; Admin Dose 20 MG; Start 10/28/16 at 09:00 Senna/Docusate Sodium (Senokot-S) 2 tab HS PO Last administered on 11/02/16 20 :37; Admin Dose 2 TAB; Start 10/27/16 at 21:00 Insulin Glargine (Lantus) 30 unit QHS SC Last administered on 11/02/16 20:38; Admin Dose 30 UNIT; Start 10/27/16 at 21:00 Miscellaneous Information 1 ea NOTE XX ; Start 10/27/16 at 17:00 Ergocalciferol (Drisdol) 50,000 unit Buenrostro@09 PO Last administered on 10/31/16 08 :45; Admin Dose 50,000 UNIT; Start 10/31/16 at 09:00; Stop 01/29/17 at 08:59 Trimethoprim/ Sulfamethoxazole (Bactrim (Ds)) 1 tab BID PO Last administered on 11/03/16 08:17; Admin Dose 1 TAB; Start 11/02/16 at 21:00 Oxycodone HCl (Roxicodone) 10 mg Q6 PRN PO pain 8-10; Start 11/03/16 at 10:00 Assessment/Plan Additional Assessment/Plan Rehab- Right intratrochanteric hip fracture status post ORIF. Continue rehab program Left subconjunctival hemorrhage-improving Diabetes mellitus type 2. Anemia. Hyperthyroidism. Acute pain syndrome. CUAUHTEMOC UGARTE MD Nov 03, 2016 10:59
[2016-11-03 11:25] LABS: CALCIUM 9.4 mg/dl (8.4-10.2); CREATININE 1.13 mg/dl (0.61-1.24); PHOSPHORUS 4.9 mg/dl (2.5-4.9); POTASSIUM 4.3 mmol/L (3.5-5.1)
[2016-11-03] MEDS: oxyCODONE 5 MG TAB PO PRN ×2 (12:38→20:40)
--- NOTE | 2016-11-03 13:24 | RADRPT ---
PROCEDURE: XR Hip 1 Views. CLINICAL INDICATION: This post right hip fracture fixation. TECHNIQUE: AP view of the right hip was performed. COMPARISON: October 24, 2016 FINDINGS: Right hip fracture fixation appears unchanged. Fracture through the right greater trochanter, adjac ent to the proximal aspect of the intramedullary ravindra is stable. Diffuse osteopenia is observed. No destructive bony lesions are observed. Mild narrowing of the right hip joint is seen. The soft tis sues surrounding the hip are unremarkable. IMPRESSION: Stable right hip fracture fixation. Stable, mildly displaced fracture through the greater trochanter of the proximal right femur, adjace nt to the proximal aspect of the femoral ravindra. Osteopenia. Mild osteoarthritis of the right hip. Overall appearance is unchanged from prior exam. RPTAT: AA .Jay Jay King MD, Date Time Electronically viewed and signed by .Jay Jay King MD, on 11/03/2016 13:23 .P/
--- NOTE | 2016-11-03 13:24 | RADRPT ---
PROCEDURE: XR Chest 1 View. CLINICAL INDICATION: Shortness of breath. TECHNIQUE: AP view of the chest was obtained. COMPARISON: October 22, 2016 FINDINGS: The heart size is within normal limits. Calcified atherosclerosis is noted in the aorta. No consol idations are identified. No pneumothorax is seen. Osseous structures are intact. IMPRESSION: Calcified atherosclerosis in the aorta. Clear lungs. RPTAT: AA .Jay Jay King MD, Date Time Electronically viewed and signed by .aJy Jay King MD, MD on 11/03/2016 13:24 .P/
--- NOTE | 2016-11-03 14:02 | PN ---
DATE: 11/03/2016 SUBJECTIVE: The patient is still complaining of hip pain. Remains afebrile since 11/01/2016. PHYSICAL EXAMINATION: VITAL SIGNS: Temperature max 98.5, pulse 70, blood pressure 125/66, O2 saturation 96% on room air. NECK: Supple. No JVD or lymphadenopathy. CARDIAC: S1, S2, no added sounds or murmurs. CHEST: Diminished air entry bilaterally. ABDOMEN: Soft, nontender. No guarding or rebound. EXTREMITIES: No cyanosis, clubbing, or edema. NEUROLOGIC: Grossly intact. LABORATORY DATA: Urinalysis shows gram-negative rods more than 10 to the 5th. Chemistry within nor mal limits. White count 4.8, hemoglobin 11.8, platelet count 285. IMPRESSION: 1. Status post mechanical fall and right open reduction internal fixation. 2. Fevers, possible wound infection. 3. Probable gram-negative urinary tract infection. PLAN: 1. Continue current antibiotics pending urine sensitivities. 2. Dr. Ramirez, evaluation for wound with wound swabs 3. Continue physical therapy. 4. DVT and GI prophylaxis. Dictated By: LUZMARIA STEEL/CHARLIE Conf#: [id number] DID#: [id number]
[2016-11-03 19:41] VITALS: BP 110/67; RESP 18
[2016-11-03] MEDS: INSULIN GLARGINE [LANtus] 3 ML PEN SC SCH (20:47)
[2016-11-03] MEDS: SENNA/DOCUSATE NA (8.6MG/50MG) TAB PO SCH (20:48)
--- NOTE | 2016-11-04 06:49 | PN ---
DATE: 11/03/2016 Doing fine with stable vital signs. The latest H and H is 11.8/36.0. Up and around with a walker, with weightbearing as tolerated. Incision is clean and dry. Leg length is equal and there are no n eurovascular compromise. Repeated x-rays today revealed satisfactory alignment of the fracture with proper position of the fixation device. PLAN: To continue ambulation with weightbearing as tolerated. Further followup as an outpatient in 2 weeks. Dictated By: ADRIANA LIVINGSTON/CHARLIE Conf#: [id number] DID#: [id number]
[2016-11-04 07:15] VITALS: BP 140/67; PULSE 65; RESP 18
[2016-11-04 07:30] VITALS: BP 140/67; RESP 18
[2016-11-04] MEDS: INSULIN ASPART [NOVOLOG] 3 ML PEN SC SCH ×7 (08:40→20:30)
[2016-11-04] MEDS: PROPRANOLOL 40 MG TAB PO SCH (08:42)
[2016-11-04] MEDS: TRIMETHOPRIM/SULFAMETHOX (DS) TAB PO SCH ×2 (08:43→20:29)
[2016-11-04] MEDS: FAMOTIDINE 20 MG TAB PO SCH (08:43)
[2016-11-04] MEDS: ENOXAPARIN 40 MG/0.4 ML SYG SC SCH (08:45)
[2016-11-04] MEDS: oxyCODONE 5 MG TAB PO PRN ×2 (08:50→12:57)
--- NOTE | 2016-11-04 11:24 | PN ---
DATE: 11/04/2016 MEDICINE FOLLOWUP NOTE SUBJECTIVE: The patient Calvin is stable this morning. Reports no shortness of breath, chest pain or palpitations. Hip pain has improved. PHYSICAL EXAMINATION: VITAL SIGNS: Temperature 98, pulse is 65, blood pressure 140/67, O2 saturation 95% on room air. NECK: Supple. No JVD or lymphadenopathy. CARDIAC: S1, S2, no added sounds or murmurs. CHEST: Diminished air entry bilaterally. No rales or wheezes. ABDOMEN: Soft, nontender. No guarding or rebound. EXTREMITIES: No cyanosis, clubbing, or edema. NEUROLOGIC: Grossly intact. No focal deficits. LABORATORY DATA: White count 4.8, hemoglobin 11.8, platelets of 285. BUN 27, creatinine 1.13. Uri ne cultures showed Klebsiella pneumoniae which is sensitive to Bactrim, which he is currently taking . IMPRESSION: 1. Urinary tract infection. 2. Status post total hip replacement. 3. Recent mechanical fall. PLAN: 1. Continue antibiotics for Klebsiella urinary tract infection. 2. Continue physical therapy. 3. DVT and GI prophylaxis. Dictated By: LUZMARIA STEEL/CHARLIE Conf#: [id number] DID#: [id number]
--- NOTE | 2016-11-04 11:56 | CONS ---
Date/Time of Note Date/Time of Note DATE: 11/04/16 TIME: 11:55 Consult Date/Type/Reason Admit Date/Time Oct 27, 2016 at 14:58 Type of Consultation: Internal medicine Objective Vital Signs Date Time Temp Pulse Resp B/P Pulse Ox O2 Delivery O2 Flow Rate FiO2 11/04/16 07:15 98.0 65 18 140/67 95 Room Air Intake and Output 11/03/16 11/03/16 11/04/16 14:59 22:59 06:59 Intake Total 1200 ml 600 ml 320 ml Output Total 250 ml 350 ml Balance 950 ml 600 ml -30 ml INTERDISCIPLINARY TEAM CONFERENCE BOWEL- Cont BLADDER-Cont SKIN- intact OT- DRESSING-sba/min BATHING-sba/min TOILETING-sba PT- BED MOBILITY-sba TRANSFERS-sba/min AMBULATION-cga 100 A/P- Interdisciplinary team conference held today. Please see interdisciplinary sheet. Working toward d.c. on 11/10 with post discharge follow up of physical therapy, occupational therapy. Results/Medications Result Diagram: 11/03/16 1000 11/03/16 1000 Results 24 hrs Laboratory Tests Test 11/03/16 12:15 11/03/16 17:29 11/03/16 20:43 11/04/16 08:37 Bedside Glucose 104 197 146 145 Medications Current Medications Acetaminophen (Tylenol Tab) 650 mg Q6H PRN PO PAIN LEVEL 1-3 OR FEVER Last administered on 11/01/16 21:32; Admin Dose 650 MG; Start 10/27/16 at 17:00 Magnesium Hydroxide (Milk Of Mag) 30 ml DAILY PRN PO CONSTIPATION; Start at 17:00 Bisacodyl (Dulcolax) 5 mg DAILY PRN PO CONSTIPATION; Start 10/27/16 at 17:00 Bisacodyl (Dulcolax Supp) 10 mg DAILY PRN [place] CONSTIPATION; Start 10/27/16 at 17: 00 Sodium Biphosphate/ Sodium Phosphate (Fleet Enema) 133 ml DAILY PRN [place] CONSTIPATION; Start 10/27/16 at 17:00 Propranolol HCl (Inderal) 40 mg DAILY PO Last administered on 11/04/16 08:42; Admin Dose 40 MG; Start 10/28/16 at 09:00 Glucose (Glutose) 22.5 gm Q15M PRN PO DECREASED GLUCOSE; Start 10/27/16 at 17:00 Dextrose (D50w Syringe) 25 ml Q15M PRN IV DECREASED GLUCOSE; Start 10/27/16 at 17:00 Dextrose (D50w Syringe) 50 ml Q15M PRN IV DECREASED GLUCOSE; Start 10/27/16 at 17:00 Glucagon (Glucagen) 1 mg Q15M PRN IM DECREASED GLUCOSE; Start 10/27/16 at 17:00 Glucose (Glutose) 15 gm Q15M PRN BUCCAL DECREASED GLUCOSE; Start 10/27/16 at 17: 00 Acetaminophen/ Hydrocodone Bitart ([place] (5/325)) 1 tab Q4H PRN PO PAIN LEVEL 1 -3 Last administered on 11/02/16 08:43; Admin Dose 1 TAB; Start 10/27/16 at 17: 00 Acetaminophen/ Hydrocodone Bitart ([place] (5/325)) 2 tab Q4H PRN PO PAIN LEVEL 4 -7 Last administered on 11/03/16 08:17; Admin Dose 2 TAB; Start 10/27/16 at 17: 00 Enoxaparin Sodium (Lovenox) 40 mg DAILY SC Last administered on 11/04/16 08:45 ; Admin Dose 40 MG; Start 10/28/16 at 09:00 Famotidine (Pepcid) 20 mg DAILY PO Last administered on 11/04/16 08:43; Admin Dose 20 MG; Start 10/28/16 at 09:00 Senna/Docusate Sodium (Senokot-S) 2 tab HS PO Last administered on 11/02/16 20 :37; Admin Dose 2 TAB; Start 10/27/16 at 21:00 Insulin Glargine (Lantus) 30 unit QHS SC Last administered on 11/03/16 20:47; Admin Dose 30 UNIT; Start 10/27/16 at 21:00 Miscellaneous Information 1 ea NOTE XX ; Start 10/27/16 at 17:00 Ergocalciferol (Drisdol) 50,000 unit Buenrost[place]@09 PO Last administered on 10/31/16 08 :45; Admin Dose 50,000 UNIT; Start 10/31/16 at 09:00; Stop 01/29/17 at 08:59 Trimethoprim/ Sulfamethoxazole (Bactrim (Ds)) 1 tab BID PO Last administered on 11/04/16 08:43; Admin Dose 1 TAB; Start 11/02/16 at 21:00 Oxycodone HCl (Roxicodone) 10 mg Q6 PRN PO pain 8-10 Last administered on 08:50; Admin Dose 10 MG; Start 11/03/16 at 10:00 CUAUHTEMOC UGARTE MD Nov 04, 2016 11:56 CUAUHTEMOC UGARTE MD Nov 04, 2016 11:56
[2016-11-04] MEDS ORDERED: ARTIFICIAL TEARS 15 ML OPH BOTH EYES PRN (16:00)
[2016-11-04] MEDS: SENNA/DOCUSATE NA (8.6MG/50MG) TAB PO SCH (20:29)
[2016-11-04] MEDS: INSULIN GLARGINE [LANtus] 3 ML PEN SC SCH (20:32)
[2016-11-04 21:02] VITALS: BP 108/61; RESP 20
[2016-11-05] MEDS: oxyCODONE 5 MG TAB PO SCH (06:19)
[2016-11-05 08:01] VITALS: BP 128/76; PULSE 85; RESP 16
[2016-11-05] MEDS: FAMOTIDINE 20 MG TAB PO SCH (09:02)
[2016-11-05] MEDS: PROPRANOLOL 40 MG TAB PO SCH (09:03)
[2016-11-05] MEDS: TRIMETHOPRIM/SULFAMETHOX (DS) TAB PO SCH ×2 (09:03→21:04)
[2016-11-05] MEDS: INSULIN ASPART [NOVOLOG] 3 ML PEN SC SCH ×7 (09:13→21:00)
[2016-11-05] MEDS: ENOXAPARIN 40 MG/0.4 ML SYG SC SCH (09:14)
[2016-11-05] MEDS: HYDROCODONE/APAP (5/325) TAB PO PRN ×2 (09:57→14:05)
--- NOTE | 2016-11-05 11:05 | CONS ---
Date/Time of Note Date/Time of Note DATE: 11/05/16 TIME: 11:04 Consult Date/Type/Reason Admit Date/Time Oct 27, 2016 at 14:58 Type of Consultation: Internal medicine Subjective doing well Objective Vital Signs Date Time Temp Pulse Resp B/P Pulse Ox O2 Delivery O2 Flow Rate FiO2 11/05/16 08:01 98.4 85 16 128/76 85 Room Air Intake and Output 11/04/16 11/04/16 11/05/16 15:00 23:00 07:00 Intake Total 820 ml Output Total 300 ml 950 ml Balance 520 ml -950 ml pulm-cta sba ambulation Results/Medications Result Diagram: 11/03/16 1000 11/03/16 1000 Results 24 hrs Laboratory Tests Test 11/04/16 12:12 11/04/16 13:35 11/04/16 17:17 11/04/16 20:28 Bedside Glucose 76 173 136 132 Test 11/05/16 08:17 Bedside Glucose 145 Medications Current Medications Acetaminophen (Tylenol Tab) 650 mg Q6H PRN PO PAIN LEVEL 1-3 OR FEVER Last administered on 11/01/16 21:32; Admin Dose 650 MG; Start 10/27/16 at 17:00 Magnesium Hydroxide (Milk Of Mag) 30 ml DAILY PRN PO CONSTIPATION; Start at 17:00 Bisacodyl (Dulcolax) 5 mg DAILY PRN PO CONSTIPATION; Start 10/27/16 at 17:00 Bisacodyl (Dulcolax Supp) 10 mg DAILY PRN [place] CONSTIPATION; Start 10/27/16 at 17: 00 Sodium Biphosphate/ Sodium Phosphate (Fleet Enema) 133 ml DAILY PRN [place] CONSTIPATION; Start 10/27/16 at 17:00 Propranolol HCl (Inderal) 40 mg DAILY PO Last administered on 11/05/16 09:03; Admin Dose 40 MG; Start 10/28/16 at 09:00 Glucose (Glutose) 22.5 gm Q15M PRN PO DECREASED GLUCOSE; Start 10/27/16 at 17:00 Dextrose (D50w Syringe) 25 ml Q15M PRN IV DECREASED GLUCOSE; Start 10/27/16 at 17:00 Dextrose (D50w Syringe) 50 ml Q15M PRN IV DECREASED GLUCOSE; Start 10/27/16 at 17:00 Glucagon (Glucagen) 1 mg Q15M PRN IM DECREASED GLUCOSE; Start 10/27/16 at 17:00 Glucose (Glutose) 15 gm Q15M PRN BUCCAL DECREASED GLUCOSE; Start 10/27/16 at 17: 00 Acetaminophen/ Hydrocodone Bitart ([place] (5/325)) 1 tab Q4H PRN PO PAIN LEVEL 1 -3 Last administered on 11/02/16 08:43; Admin Dose 1 TAB; Start 10/27/16 at 17: 00 Acetaminophen/ Hydrocodone Bitart ([place] (5/325)) 2 tab Q4H PRN PO PAIN LEVEL 4 -7 Last administered on 11/05/16 09:57; Admin Dose 2 TAB; Start 10/27/16 at 17: 00 Enoxaparin Sodium (Lovenox) 40 mg DAILY SC Last administered on 11/05/16 09:14 ; Admin Dose 40 MG; Start 10/28/16 at 09:00 Famotidine (Pepcid) 20 mg DAILY PO Last administered on 11/05/16 09:02; Admin Dose 20 MG; Start 10/28/16 at 09:00 Senna/Docusate Sodium (Senokot-S) 2 tab HS PO Last administered on 11/02/16 20 :37; Admin Dose 2 TAB; Start 10/27/16 at 21:00 Insulin Glargine (Lantus) 30 unit QHS SC Last administered on 11/04/16 20:32; Admin Dose 30 UNIT; Start 10/27/16 at 21:00 Miscellaneous Information 1 ea NOTE XX ; Start 10/27/16 at 17:00 Ergocalciferol (Drisdol) 50,000 unit [place]@09 PO Last administered on 10/31/16 08 :45; Admin Dose 50,000 UNIT; Start 10/31/16 at 09:00; Stop 01/29/17 at 08:59 Trimethoprim/ Sulfamethoxazole (Bactrim (Ds)) 1 tab BID PO Last administered on 11/05/16 09:03; Admin Dose 1 TAB; Start 11/02/16 at 21:00 Oxycodone HCl (Roxicodone) 10 mg Q4H PRN PO pain 8-10 Last administered on 11/04 12:57; Admin Dose 10 MG; Start 11/04/16 at 13:00 Oxycodone HCl (Roxicodone) 10 mg DAILY@06 PO Last administered on 11/05/16t 06: 19; Admin Dose 10 MG; Start 11/05/16 at 06:00 Eye Lubricant (Artificial Tears Oph) 2 drop Q6H PRN BOTH EYES DRY EYES; Start 11/04/16 at 16:00 Assessment/Plan Additional Assessment/Plan Rehab- Right intratrochanteric hip fracture status post ORIF. Continue rehab therapy plan. Excellent progress. Left subconjunctival hemorrhage-resolved Diabetes mellitus type 2. Anemia. Hyperthyroidism. Acute pain syndrome-better. CUAUHTEMOC UGARTE MD Nov 05, 2016 11:05
--- NOTE | 2016-11-05 12:11 | CONS ---
Date/Time of Note Date/Time of Note DATE: 11/05/16 TIME: 12:09 Assessment/Plan Assessment/Plan Additional Assessment/Plan Assessment recommendations; 1. patient admitted with a fall resulting in right hip fracture status post ORIF with continually improving clinical status. 2. History of recent UTI. Continue current treatment. Patient responding well to rehab. Consultation Date/Type/Reason Admit Date/Time Oct 27, 2016 at 14:58 Initial Consult Date Type of Consultation: Internal medicine 24 HR Interval Summary Free Text/Dictation Patient condition stable. Denies any shortness of breath, fever, chest pain. Patient is ambulatory. General examination; elderly male, awake alert currently in no distress. Exam/Review of Systems Vital Signs Vitals Vital Signs Date Time Temp Pulse Resp B/P Pulse Ox O2 Delivery O2 Flow Rate FiO2 11/05/16 08:01 98.4 85 16 128/76 85 Room Air Intake and Output 11/04/16 11/04/16 11/05/16 15:00 23:00 07:00 Intake Total 820 ml Output Total 300 ml 950 ml Balance 520 ml -950 ml Exam HEENT exam; supple neck, no JVD. No lymphadenopathy. Midline trachea. No thyromegaly. Patient has good dentition. Pupils are equal and reactive to light. Chest examination; clear to ulceration. S1-S2 audible, no murmurs. Regular rhythm. Abdomen examination; soft, no organomegaly. Bowel sounds audible. Extremity examination; no peripheral edema. Pulses 2+ bilaterally. WELDING ESTIMATOR examination; no focal deficit. Results Result Diagram: 11/03/16 1000 11/03/16 1000 Results 24 hrs Laboratory Tests Test 11/04/16 12:12 11/04/16 13:35 11/04/16 17:17 11/04/16 20:28 Bedside Glucose 76 173 136 132 Test 11/05/16 08:17 11/05/16 12:04 Bedside Glucose 145 168 Medications Medications Current Medications Acetaminophen (Tylenol Tab) 650 mg Q6H PRN PO PAIN LEVEL 1-3 OR FEVER Last administered on 11/01/16t 21:32; Admin Dose 650 MG; Start 10/27/16 at 17:00 Magnesium Hydroxide (Milk Of Mag) 30 ml DAILY PRN PO CONSTIPATION; Start at 17:00 Bisacodyl (Dulcolax) 5 mg DAILY PRN PO CONSTIPATION; Start 10/27/16 at 17:00 Bisacodyl (Dulcolax Supp) 10 mg DAILY PRN [place] CONSTIPATION; Start 10/27/16 at 17: 00 Sodium Biphosphate/ Sodium Phosphate (Fleet Enema) 133 ml DAILY PRN [place] CONSTIPATION; Start 10/27/16 at 17:00 Propranolol HCl (Inderal) 40 mg DAILY PO Last administered on 11/05/16 09:03; Admin Dose 40 MG; Start 10/28/16 at 09:00 Glucose (Glutose) 22.5 gm Q15M PRN PO DECREASED GLUCOSE; Start 10/27/16 at 17:00 Dextrose (D50w Syringe) 25 ml Q15M PRN IV DECREASED GLUCOSE; Start 10/27/16 at 17:00 Dextrose (D50w Syringe) 50 ml Q15M PRN IV DECREASED GLUCOSE; Start 10/27/16 at 17:00 Glucagon (Glucagen) 1 mg Q15M PRN IM DECREASED GLUCOSE; Start 10/27/16 at 17:00 Glucose (Glutose) 15 gm Q15M PRN BUCCAL DECREASED GLUCOSE; Start 10/27/16 at 17: 00 Acetaminophen/ Hydrocodone Bitart ([place] (5/325)) 1 tab Q4H PRN PO PAIN LEVEL 1 -3 Last administered on 11/02/16 08:43; Admin Dose 1 TAB; Start 10/27/16 at 17: 00 Acetaminophen/ Hydrocodone Bitart ([place] (5/325)) 2 tab Q4H PRN PO PAIN LEVEL 4 -7 Last administered on 11/05/16 09:57; Admin Dose 2 TAB; Start 10/27/16 at 17: 00 Enoxaparin Sodium (Lovenox) 40 mg DAILY SC Last administered on 11/05/16 09:14 ; Admin Dose 40 MG; Start 10/28/16 at 09:00 Famotidine (Pepcid) 20 mg DAILY PO Last administered on 11/05/16 09:02; Admin Dose 20 MG; Start 10/28/16 at 09:00 Senna/Docusate Sodium (Senokot-S) 2 tab HS PO Last administered on 11/02/16 20 :37; Admin Dose 2 TAB; Start 10/27/16 at 21:00 Insulin Glargine (Lantus) 30 unit QHS SC Last administered on 11/04/16 20:32; Admin Dose 30 UNIT; Start 10/27/16 at 21:00 Miscellaneous Information 1 ea NOTE XX ; Start 10/27/16 at 17:00 Ergocalciferol (Drisdol) 50,000 unit Buenrostro@09 PO Last administered on 10/31/16 08 :45; Admin Dose 50,000 UNIT; Start 10/31/16 at 09:00; Stop 01/29/17 at 08:59 Trimethoprim/ Sulfamethoxazole (Bactrim (Ds)) 1 tab BID PO Last administered on 11/05/16 09:03; Admin Dose 1 TAB; Start 11/02/16 at 21:00 Oxycodone HCl (Roxicodone) 10 mg Q4H PRN PO pain 8-10 Last administered on 11/04 12:57; Admin Dose 10 MG; Start 11/04/16 at 13:00 Oxycodone HCl (Roxicodone) 10 mg DAILY@06 PO Last administered on 11/05/16 06: 19; Admin Dose 10 MG; Start 11/05/16 at 06:00 Eye Lubricant (Artificial Tears Oph) 2 drop Q6H PRN BOTH EYES DRY EYES; Start 11/04/16 at 16:00 ISAAC GREGG Nov 05, 2016 12:11
[2016-11-05 20:00] VITALS: BP 108/53; RESP 18
[2016-11-05] MEDS: SENNA/DOCUSATE NA (8.6MG/50MG) TAB PO SCH (21:00)
[2016-11-05] MEDS: INSULIN GLARGINE [LANtus] 3 ML PEN SC SCH (21:06)
[2016-11-06] MEDS: HYDROCODONE/APAP (5/325) TAB PO PRN ×3 (01:24→17:54)
[2016-11-06] MEDS: oxyCODONE 5 MG TAB PO SCH (06:39)
[2016-11-06 07:30] VITALS: BP 135/58; RESP 18
[2016-11-06] MEDS: INSULIN ASPART [NOVOLOG] 3 ML PEN SC SCH ×7 (07:35→20:45)
[2016-11-06] MEDS: ENOXAPARIN 40 MG/0.4 ML SYG SC SCH (08:21)
[2016-11-06] MEDS: FAMOTIDINE 20 MG TAB PO SCH (08:22)
[2016-11-06] MEDS: TRIMETHOPRIM/SULFAMETHOX (DS) TAB PO SCH ×2 (08:22→20:46)
[2016-11-06] MEDS: PROPRANOLOL 40 MG TAB PO SCH (08:24)
--- NOTE | 2016-11-06 11:14 | PN ---
Date/Time of Note Date/Time of Note DATE: 11/06/16 TIME: 11:10 Assessment/Plan VTE Prophylaxis VTE Prophylaxis Intervention: LMWH Lines/Catheters IV Catheter Type (from Nrsg): Saline Lock Urinary Cath still in place: No Assessment/Plan Assessment/Plan 1. Status post fall with right intertrochanteric hip fracture, status post ORIF with impaired mobility/gait/ADLs. Continue PT/OT. Stand by assist for bed mobility and transfers. 2. Acute post operative pain syndrome. Pain controlled. Continue current pain regimen. 3. Diabetes mellitus type 2. Monitor blood sugars. Internal medicine medically managing. 4. Anemia. Monitor hemoglobin/hematocrit. 5. Klebsiella UTI. On antibiotics. 6. Hypertension. BP controlled. Continue medical management. Subjective 24 Hr Interval Summary Free Text/Dictation Rehab progress note Subjective: Reports 2/10 pain currently in right hip. ROS: Denies headache, no dizziness, no abdominal pain, no constipation, no chest pain, no shortness of breath. Exam/Review of Systems Vital Signs Vitals Vital Signs Date Time Temp Pulse Resp B/P Pulse Ox O2 Delivery O2 Flow Rate FiO2 11/05/16 20:00 97.8 66 18 108/53 98 11/05/16 08:01 Room Air Intake and Output 11/05/16 11/05/16 11/06/16 15:00 23:00 07:00 Intake Total 450 ml 350 ml Output Total 250 ml 250 ml Balance 200 ml 100 ml Exam General: Awake, alert, no acute distress CV: Regular rate, s1s2 Lungs: Symmetrical air entry bilaterally, no wheezing Abdomen soft, nontender Extremities without cyanosis, no distal edema. Right hip surgical site with dressing in place, clean and dry. Neuro: Active R DF/PF. Proximal RLE testing pain limited. No new sensory changes. Results Result Diagram: 11/03/16 1000 11/03/16 1000 Results 24 hrs Laboratory Tests Test 11/05/16 12:04 11/05/16 17:04 11/05/16 20:14 11/06/16 07:40 Bedside Glucose 168 222 H 173 91 Medications Medications Current Medications Acetaminophen (Tylenol Tab) 650 mg Q6H PRN PO PAIN LEVEL 1-3 OR FEVER Last administered on 11/01/16t 21:32; Admin Dose 650 MG; Start 10/27/16 at 17:00 Magnesium Hydroxide (Milk Of Mag) 30 ml DAILY PRN PO CONSTIPATION; Start at 17:00 Bisacodyl (Dulcolax) 5 mg DAILY PRN PO CONSTIPATION; Start 10/27/16 at 17:00 Bisacodyl (Dulcolax Supp) 10 mg DAILY PRN [place] CONSTIPATION; Start 10/27/16 at 17: 00 Sodium Biphosphate/ Sodium Phosphate (Fleet Enema) 133 ml DAILY PRN [place] CONSTIPATION; Start 10/27/16 at 17:00 Propranolol HCl (Inderal) 40 mg DAILY PO Last administered on 11/06/16 08:24; Admin Dose 40 MG; Start 10/28/16 at 09:00 Glucose (Glutose) 22.5 gm Q15M PRN PO DECREASED GLUCOSE; Start 10/27/16 at 17:00 Dextrose (D50w Syringe) 25 ml Q15M PRN IV DECREASED GLUCOSE; Start 10/27/16 at 17:00 Dextrose (D50w Syringe) 50 ml Q15M PRN IV DECREASED GLUCOSE; Start 10/27/16 at 17:00 Glucagon (Glucagen) 1 mg Q15M PRN IM DECREASED GLUCOSE; Start 10/27/16 at 17:00 Glucose (Glutose) 15 gm Q15M PRN BUCCAL DECREASED GLUCOSE; Start 10/27/16 at 17: 00 Acetaminophen/ Hydrocodone Bitart ([place] (5/325)) 1 tab Q4H PRN PO PAIN LEVEL 1 -3 Last administered on 11/02/16 08:43; Admin Dose 1 TAB; Start 10/27/16 at 17: 00 Acetaminophen/ Hydrocodone Bitart ([place] (5/325)) 2 tab Q4H PRN PO PAIN LEVEL 4 -7 Last administered on 11/06/16 01:24; Admin Dose 2 TAB; Start 10/27/16 at 17: 00 Enoxaparin Sodium (Lovenox) 40 mg DAILY SC Last administered on 11/06/16 08:21 ; Admin Dose 40 MG; Start 10/28/16 at 09:00 Famotidine (Pepcid) 20 mg DAILY PO Last administered on 11/06/16 08:22; Admin Dose 20 MG; Start 10/28/16 at 09:00 Senna/Docusate Sodium (Senokot-S) 2 tab HS PO Last administered on 11/02/16 20 :37; Admin Dose 2 TAB; Start 10/27/16 at 21:00 Insulin Glargine (Lantus) 30 unit QHS SC Last administered on 11/05/16 21:06; Admin Dose 30 UNIT; Start 10/27/16 at 21:00 Miscellaneous Information 1 ea NOTE XX ; Start 10/27/16 at 17:00 Ergocalciferol (Drisdol) 50,000 unit Buenrostro@09 PO Last administered on 10/31/16 08 :45; Admin Dose 50,000 UNIT; Start 10/31/16 at 09:00; Stop 01/29/17 at 08:59 Trimethoprim/ Sulfamethoxazole (Bactrim (Ds)) 1 tab BID PO Last administered on 11/06/16 08:22; Admin Dose 1 TAB; Start 11/02/16 at 21:00 Oxycodone HCl (Roxicodone) 10 mg Q4H PRN PO pain 8-10 Last administered on 11/04 12:57; Admin Dose 10 MG; Start 11/04/16 at 13:00 Oxycodone HCl (Roxicodone) 10 mg DAILY@06 PO Last administered on 11/06/16 06: 39; Admin Dose 10 MG; Start 11/05/16 at 06:00 Eye Lubricant (Artificial Tears Oph) 2 drop Q6H PRN BOTH EYES DRY EYES; Start 11/04/16 at 16:00 JOSHUA ALEMAN Nov 06, 2016 11:14
[2016-11-06 19:45] VITALS: BP 127/61; RESP 20
[2016-11-06] MEDS: INSULIN GLARGINE [LANtus] 3 ML PEN SC SCH (20:44)
[2016-11-06] MEDS: SENNA/DOCUSATE NA (8.6MG/50MG) TAB PO SCH (20:45)
[2016-11-07] MEDS: HYDROCODONE/APAP (5/325) TAB PO PRN ×2 (00:14→15:08)
[2016-11-07] MEDS: oxyCODONE 5 MG TAB PO PRN (06:43)
[2016-11-07] MEDS: oxyCODONE 5 MG TAB PO SCH (06:56)
[2016-11-07] MEDS: INSULIN ASPART [NOVOLOG] 3 ML PEN SC SCH ×7 (07:05→20:25)
[2016-11-07] MEDS: ENOXAPARIN 40 MG/0.4 ML SYG SC SCH (09:23)
[2016-11-07] MEDS: ERGOCALCIFEROL 50,000 UNIT CAP PO SCH (09:24)
[2016-11-07] MEDS: TRIMETHOPRIM/SULFAMETHOX (DS) TAB PO SCH ×2 (09:24→20:24)
[2016-11-07] MEDS: FAMOTIDINE 20 MG TAB PO SCH (09:24)
[2016-11-07] MEDS: PROPRANOLOL 40 MG TAB PO SCH (09:24)
--- NOTE | 2016-11-07 11:06 | PN ---
Date/Time of Note Date/Time of Note DATE: 11/07/16 TIME: 11:04 Assessment/Plan VTE Prophylaxis VTE Prophylaxis Intervention: LMWH Lines/Catheters IV Catheter Type (from Nrs): Saline Lock Urinary Cath still in place: No Assessment/Plan Assessment/Plan 1. Right intertrochanteric hip fracture s/p fall, treated with ORIF, with impaired mobility/gait/ADLs. Continue PT/OT. Supervision for grooming, contact guard assistance for lower body dressing. 2. Acute post operative pain syndrome. Pain controlled. Continue current regimen including oxycodone and norco. 3. Diabetes mellitus type 2. Monitor blood sugars. On insulin regimen per internal medicine. 4. Anemia. Monitor hemoglobin/hematocrit. Internal medicine managing. 5. Klebsiella UTI. Continue antibiotics. 6. Hypertension. BP controlled. Continue medical management per internal medicine. Subjective 24 Hr Interval Summary Free Text/Dictation Rehab progress note Subjective: Reports minimal right hip pain. ROS: Denies chest pain, no shortness of breath, no abdominal pain, no nausea or vomiting, no chills. Exam/Review of Systems Vital Signs Vitals Vital Signs Date Time Temp Pulse Resp B/P Pulse Ox O2 Delivery O2 Flow Rate FiO2 11/06/16 19:45 98.1 60 20 127/61 95 11/05/16 08:01 Room Air Intake and Output 11/06/16 11/06/16 11/07/16 15:00 23:00 07:00 Intake Total 1900 ml 350 ml Output Total 600 ml 790 ml 1150 ml Balance -600 ml 1110 ml -800 ml Exam General: Awake, alert, no acute distress CV: Regular rate, s1s2 audible Lungs: Clear to auscultation, no wheezing Abdomen soft, nontender Extremities without cyanosis, no distal edema. Right hip surgical site- simba removed, site clean, dry, no active drainage note. Neuro: No new focal changes. Follows simple commands. Results Result Diagram: 11/03/16 1000 11/03/16 1000 Results 24 hrs Laboratory Tests Test 11/06/16 12:08 11/06/16 12:24 11/06/16 12:44 11/06/16 20:40 Bedside Glucose 58 L 96 183 229 H Test 11/07/16 01:24 11/07/16 07:45 Bedside Glucose 111 155 Medications Medications Current Medications Acetaminophen (Tylenol Tab) 650 mg Q6H PRN PO PAIN LEVEL 1-3 OR FEVER Last administered on 11/01/16 21:32; Admin Dose 650 MG; Start 10/27/16 at 17:00 Magnesium Hydroxide (Milk Of Mag) 30 ml DAILY PRN PO CONSTIPATION; Start at 17:00 Bisacodyl (Dulcolax) 5 mg DAILY PRN PO CONSTIPATION; Start 10/27/16 at 17:00 Bisacodyl (Dulcolax Supp) 10 mg DAILY PRN [place] CONSTIPATION; Start 10/27/16 at 17: 00 Sodium Biphosphate/ Sodium Phosphate (Fleet Enema) 133 ml DAILY PRN [place] CONSTIPATION; Start 10/27/16 at 17:00 Propranolol HCl (Inderal) 40 mg DAILY PO Last administered on 11/07/16 09:24; Admin Dose 40 MG; Start 10/28/16 at 09:00 Glucose (Glutose) 22.5 gm Q15M PRN PO DECREASED GLUCOSE; Start 10/27/16 at 17:00 Dextrose (D50w Syringe) 25 ml Q15M PRN IV DECREASED GLUCOSE; Start 10/27/16 at 17:00 Dextrose (D50w Syringe) 50 ml Q15M PRN IV DECREASED GLUCOSE; Start 10/27/16 at 17:00 Glucagon (Glucagen) 1 mg Q15M PRN IM DECREASED GLUCOSE; Start 10/27/16 at 17:00 Glucose (Glutose) 15 gm Q15M PRN BUCCAL DECREASED GLUCOSE; Start 10/27/16 at 17: 00 Acetaminophen/ Hydrocodone Bitart ([place] (5/325)) 1 tab Q4H PRN PO PAIN LEVEL 1 -3 Last administered on 11/02/16 08:43; Admin Dose 1 TAB; Start 10/27/16 at 17: 00 Acetaminophen/ Hydrocodone Bitart ([place] (5/325)) 2 tab Q4H PRN PO PAIN LEVEL 4 -7 Last administered on 11/07/16 00:14; Admin Dose 2 TAB; Start 10/27/16 at 17: 00 Enoxaparin Sodium (Lovenox) 40 mg DAILY SC Last administered on 11/07/16 09:23 ; Admin Dose 40 MG; Start 10/28/16 at 09:00 Famotidine (Pepcid) 20 mg DAILY PO Last administered on 11/07/16 09:24; Admin Dose 20 MG; Start 10/28/16 at 09:00 Senna/Docusate Sodium (Senokot-S) 2 tab HS PO Last administered on 11/02/16 20 :37; Admin Dose 2 TAB; Start 10/27/16 at 21:00 Insulin Glargine (Lantus) 30 unit QHS SC Last administered on 11/06/16 20:44; Admin Dose 30 UNIT; Start 10/27/16 at 21:00 Miscellaneous Information 1 ea NOTE XX ; Start 10/27/16 at 17:00 Ergocalciferol (Drisdol) 50,000 unit Buenrostro@09 PO Last administered on 11/07/16 09 :24; Admin Dose 50,000 UNIT; Start 10/31/16 at 09:00; Stop 01/29/17 at 08:59 Trimethoprim/ Sulfamethoxazole (Bactrim (Ds)) 1 tab BID PO Last administered on 11/07/16 09:24; Admin Dose 1 TAB; Start 11/02/16 at 21:00 Oxycodone HCl (Roxicodone) 10 mg Q4H PRN PO pain 8-10 Last administered on 11/04 12:57; Admin Dose 10 MG; Start 11/04/16 at 13:00 Oxycodone HCl (Roxicodone) 10 mg DAILY@06 PO Last administered on 11/07/16 06: 56; Admin Dose 10 MG; Start 11/05/16 at 06:00 Eye Lubricant (Artificial Tears Oph) 2 drop Q6H PRN BOTH EYES DRY EYES; Start 11/04/16 at 16:00 JOSHUA ALEMAN Nov 07, 2016 11:05
--- NOTE | 2016-11-07 12:23 | CONS ---
Date/Time of Note Date/Time of Note DATE: 11/07/16 TIME: 12:22 Consultation Date/Type/Reason Admit Date/Time Oct 27, 2016 at 14:58 Type of Consultation: medicine Hx of Present Illness dictated [id number] Constitutional: no complaints Respiratory: no complaints Cardiovascular: no complaints Gastrointestinal: no complaints Past Surgical History Past Surgical Hx: no surgical history Social History Smoking Status: Never smoker Exam/Review of Systems Vital Signs Vitals Vital Signs Date Time Temp Pulse Resp B/P Pulse Ox O2 Delivery O2 Flow Rate FiO2 11/06/16 19:45 98.1 60 20 127/61 95 11/05/16 08:01 Room Air Intake and Output 11/06/16 11/06/16 11/07/16 15:00 23:00 07:00 Intake Total 1900 ml 350 ml Output Total 600 ml 790 ml 1150 ml Balance -600 ml 1110 ml -800 ml Results Result Diagram: 11/03/16 1000 11/03/16 1000 Results 24 hrs Laboratory Tests Test 11/06/16 12:24 11/06/16 12:44 11/06/16 20:40 11/07/16 01:24 Bedside Glucose 96 183 229 H 111 Test 11/07/16 07:45 11/07/16 12:09 Bedside Glucose 155 132 Medications Medications Current Medications Acetaminophen (Tylenol Tab) 650 mg Q6H PRN PO PAIN LEVEL 1-3 OR FEVER Last administered on 11/01/16 21:32; Admin Dose 650 MG; Start 10/27/16 at 17:00 Magnesium Hydroxide (Milk Of Mag) 30 ml DAILY PRN PO CONSTIPATION; Start at 17:00 Bisacodyl (Dulcolax) 5 mg DAILY PRN PO CONSTIPATION; Start 10/27/16 at 17:00 Bisacodyl (Dulcolax Supp) 10 mg DAILY PRN [place] CONSTIPATION; Start 10/27/16 at 17: 00 Sodium Biphosphate/ Sodium Phosphate (Fleet Enema) 133 ml DAILY PRN [place] CONSTIPATION; Start 10/27/16 at 17:00 Propranolol HCl (Inderal) 40 mg DAILY PO Last administered on 11/07/16 09:24; Admin Dose 40 MG; Start 10/28/16 at 09:00 Glucose (Glutose) 22.5 gm Q15M PRN PO DECREASED GLUCOSE; Start 10/27/16 at 17:00 Dextrose (D50w Syringe) 25 ml Q15M PRN IV DECREASED GLUCOSE; Start 10/27/16 at 17:00 Dextrose (D50w Syringe) 50 ml Q15M PRN IV DECREASED GLUCOSE; Start 10/27/16 at 17:00 Glucagon (Glucagen) 1 mg Q15M PRN IM DECREASED GLUCOSE; Start 10/27/16 at 17:00 Glucose (Glutose) 15 gm Q15M PRN BUCCAL DECREASED GLUCOSE; Start 10/27/16 at 17: 00 Acetaminophen/ Hydrocodone Bitart ([place] (5/325)) 1 tab Q4H PRN PO PAIN LEVEL 1 -3 Last administered on 11/02/16 08:43; Admin Dose 1 TAB; Start 10/27/16 at 17: 00 Acetaminophen/ Hydrocodone Bitart ([place] (5/325)) 2 tab Q4H PRN PO PAIN LEVEL 4 -7 Last administered on 11/07/16 00:14; Admin Dose 2 TAB; Start 10/27/16 at 17: 00 Enoxaparin Sodium (Lovenox) 40 mg DAILY SC Last administered on 11/07/16 09:23 ; Admin Dose 40 MG; Start 10/28/16 at 09:00 Famotidine (Pepcid) 20 mg DAILY PO Last administered on 11/07/16 09:24; Admin Dose 20 MG; Start 10/28/16 at 09:00 Senna/Docusate Sodium (Senokot-S) 2 tab HS PO Last administered on 11/02/16 20 :37; Admin Dose 2 TAB; Start 10/27/16 at 21:00 Insulin Glargine (Lantus) 30 unit QHS SC Last administered on 11/06/16 20:44; Admin Dose 30 UNIT; Start 10/27/16 at 21:00 Miscellaneous Information 1 ea NOTE XX ; Start 10/27/16 at 17:00 Ergocalciferol (Drisdol) 50,000 unit [place]@09 PO Last administered on 11/07/16 09 :24; Admin Dose 50,000 UNIT; Start 10/31/16 at 09:00; Stop 01/29/17 at 08:59 Trimethoprim/ Sulfamethoxazole (Bactrim (Ds)) 1 tab BID PO Last administered on 11/07/16 09:24; Admin Dose 1 TAB; Start 11/02/16 at 21:00 Oxycodone HCl (Roxicodone) 10 mg Q4H PRN PO pain 8-10 Last administered on 11/04 12:57; Admin Dose 10 MG; Start 11/04/16 at 13:00 Oxycodone HCl (Roxicodone) 10 mg DAILY@06 PO Last administered on 11/07/16 06: 56; Admin Dose 10 MG; Start 11/05/16 at 06:00 Eye Lubricant (Artificial Tears Oph) 2 drop Q6H PRN BOTH EYES DRY EYES; Start 11/04/16 at 16:00 ISAAC GREGG Nov 07, 2016 12:23
[2016-11-07] MEDS: SENNA/DOCUSATE NA (8.6MG/50MG) TAB PO SCH (20:24)
[2016-11-07] MEDS: INSULIN GLARGINE [LANtus] 3 ML PEN SC SCH (20:26)
[2016-11-07 20:28] VITALS: BP 120/60; RESP 18
[2016-11-08] MEDS: HYDROCODONE/APAP (5/325) TAB PO PRN ×3 (01:55→14:09)
[2016-11-08] MEDS: oxyCODONE 5 MG TAB PO PRN (05:51)
[2016-11-08] MEDS: oxyCODONE 5 MG TAB PO SCH (06:28)
[2016-11-08 07:30] VITALS: BP 120/58; RESP 18
[2016-11-08] MEDS: ENOXAPARIN 40 MG/0.4 ML SYG SC SCH (08:57)
[2016-11-08] MEDS: INSULIN ASPART [NOVOLOG] 3 ML PEN SC SCH ×6 (08:58→21:00)
[2016-11-08] MEDS: TRIMETHOPRIM/SULFAMETHOX (DS) TAB PO SCH ×2 (09:44→20:38)
[2016-11-08] MEDS: PROPRANOLOL 40 MG TAB PO SCH (09:45)
[2016-11-08] MEDS: FAMOTIDINE 20 MG TAB PO SCH (09:46)
[2016-11-08] MEDS: METOPROLOL (XL) 50 MG TAB PO SCH (14:00)
--- NOTE | 2016-11-08 15:36 | PN ---
Date/Time of Note Date/Time of Note DATE: 11/08/16 TIME: 15:33 Assessment/Plan Lines/Catheters IV Catheter Type (from Nrsg): Saline Lock Urinary Cath still in place: No Assessment/Plan Assessment/Plan 1. Right intertrochanteric hip fracture s/p fall, treated with ORIF, with impaired mobility/gait/ADLs. Continue PT/OT. Supervision for grooming, contact guard assistance for lower body dressing. 2. Acute post operative pain syndrome. Pain controlled. Continue current regimen including oxycodone and norco. 3. Diabetes mellitus type 2. Monitor blood sugars. Endocrinology has been consulted for further recommendations. 4. Anemia. Monitor hemoglobin/hematocrit. Internal medicine managing. 5. Klebsiella UTI. Continue antibiotics. 6. Hypertension. BP controlled. Continue medical management per internal medicine. Subjective 24 Hr Interval Summary Free Text/Dictation Rehab progress note Subjective: Reports minimal pain currently right hip. Pain worse with movement. Alleviated with pain medication. Reports does not want to go home on insulin regimen and requesting to switch back to PO medications. ROS: Denies chest pain, no shortness of breath, no abdominal pain, no nausea, no chills. Exam/Review of Systems Vital Signs Vitals Vital Signs Date Time Temp Pulse Resp B/P Pulse Ox O2 Delivery O2 Flow Rate FiO2 11/08/16 07:30 97.9 98 18 120/58 98 11/05/16 08:01 Room Air Intake and Output 11/07/16 11/07/16 11/08/16 15:00 23:00 07:00 Intake Total 720 ml 760 ml Output Total 1200 ml Balance 720 ml -440 ml Results Results 24 hrs Laboratory Tests Test 11/07/16 17:20 11/07/16 20:21 11/08/16 07:42 11/08/16 12:05 Bedside Glucose 198 70 218 70 Medications Medications Current Medications Acetaminophen (Tylenol Tab) 650 mg Q6H PRN PO PAIN LEVEL 1-3 OR FEVER Last administered on 11/01/16t 21:32; Admin Dose 650 MG; Start 10/27/16 at 17:00 Magnesium Hydroxide (Milk Of Mag) 30 ml DAILY PRN PO CONSTIPATION; Start at 17:00 Bisacodyl (Dulcolax) 5 mg DAILY PRN PO CONSTIPATION; Start 10/27/16 at 17:00 Bisacodyl (Dulcolax Supp) 10 mg DAILY PRN [place] CONSTIPATION; Start 10/27/16 at 17: 00 Sodium Biphosphate/ Sodium Phosphate (Fleet Enema) 133 ml DAILY PRN [place] CONSTIPATION; Start 10/27/16 at 17:00 Glucose (Glutose) 22.5 gm Q15M PRN PO DECREASED GLUCOSE; Start 10/27/16 at 17:00 Dextrose (D50w Syringe) 25 ml Q15M PRN IV DECREASED GLUCOSE; Start 10/27/16 at 17:00 Dextrose (D50w Syringe) 50 ml Q15M PRN IV DECREASED GLUCOSE; Start 10/27/16 at 17:00 Glucagon (Glucagen) 1 mg Q15M PRN IM DECREASED GLUCOSE; Start 10/27/16 at 17:00 Glucose (Glutose) 15 gm Q15M PRN BUCCAL DECREASED GLUCOSE; Start 10/27/16 at 17: 00 Acetaminophen/ Hydrocodone Bitart ([place] (5/325)) 1 tab Q4H PRN PO PAIN LEVEL 1 -3 Last administered on 11/02/16 08:43; Admin Dose 1 TAB; Start 10/27/16 at 17: 00 Acetaminophen/ Hydrocodone Bitart ([place] (5/325)) 2 tab Q4H PRN PO PAIN LEVEL 4 -7 Last administered on 11/08/16 14:09; Admin Dose 2 TAB; Start 10/27/16 at 17: 00 Enoxaparin Sodium (Lovenox) 40 mg DAILY SC Last administered on 11/08/16 08:57 ; Admin Dose 40 MG; Start 10/28/16 at 09:00 Famotidine (Pepcid) 20 mg DAILY PO Last administered on 11/08/16 09:46; Admin Dose 20 MG; Start 10/28/16 at 09:00 Senna/Docusate Sodium (Senokot-S) 2 tab HS PO Last administered on 11/07/16 20 :24; Admin Dose 2 TAB; Start 10/27/16 at 21:00 Miscellaneous Information 1 ea NOTE XX ; Start 10/27/16 at 17:00 Ergocalciferol (Drisdol) 50,000 unit Buenrost[place]@09 PO Last administered on 11/07/16 09 :24; Admin Dose 50,000 UNIT; Start 10/31/16 at 09:00; Stop 01/29/17 at 08:59 Trimethoprim/ Sulfamethoxazole (Bactrim (Ds)) 1 tab BID PO Last administered on 11/08/16 09:44; Admin Dose 1 TAB; Start 11/02/16 at 21:00 Oxycodone HCl (Roxicodone) 10 mg Q4H PRN PO pain 8-10 Last administered on 11/04 12:57; Admin Dose 10 MG; Start 11/04/16 at 13:00 Oxycodone HCl (Roxicodone) 10 mg DAILY@06 PO Last administered on 11/08/16 06: 28; Admin Dose 10 MG; Start 11/05/16 at 06:00 Eye Lubricant (Artificial Tears Oph) 2 drop Q6H PRN BOTH EYES DRY EYES; Start 11/04/16 at 16:00 Linagliptin (Tradjenta) 5 mg DAILY PO ; Start 11/08/16 at 14:00 Metoprolol Succinate (Toprol Xl) 50 mg DAILY PO ; Start 11/08/16 at 14:00 Atorvastatin Calcium (Lipitor) 40 mg HS PO ; Start 11/08/16 at 21:00 JOSHUA ALEMAN Nov 08, 2016 15:36
[2016-11-08] MEDS: NATEGLINIDE 60 MG TAB PO SCH (18:06)
[2016-11-08] MEDS: metFORMIN 500 MG TAB PO SCH (18:06)
[2016-11-08] MEDS: LINAGLIPTIN 5 MG TABLET PO SCH (18:06)
[2016-11-08 20:04] VITALS: BP 132/61; RESP 18
[2016-11-08] MEDS: ATORVASTATIN 40 MG TAB PO SCH (20:38)
[2016-11-08] MEDS: SENNA/DOCUSATE NA (8.6MG/50MG) TAB PO SCH (20:40)
--- NOTE | 2016-11-09 04:04 | PN ---
DATE: 11/08/2016 MEDICINE PROGRESS NOTE SUBJECTIVE: Mr. Simpson's condition is stable. The patient is completely awake, alert, and denies any shortness of breath or chest pain. He complains of very minimal right hip pain. OBJECTIVE: GENERAL: Elderly male, awake and alert currently, in no distress. VITAL SIGNS: Temperature is 97.8 degrees Fahrenheit, heart rate is 98, blood pressure is 120/58, re spiratory rate is 18 per minute, and saturation is 98% on room air. HEENT: Supple neck. No JVD. No lymphadenopathy. Midline trachea. No thyromegaly. Pharynx clear . No neck bruits. Pupils are equal and reactive to light. The patient has good dentition. CHEST: Clear to auscultation. S1, S2 audible. No murmurs. Regular rhythm. ABDOMEN: Soft, nontender, and nondistended. Bowel sounds are audible. EXTREMITIES: No edema. Pulses 2+ bilaterally. LOSS PREVENTION SPECIALIST: No focal deficit. MEDICATIONS: Reviewed. ASSESSMENT: 1. The patient admitted for fall resulting in right hip fracture status post ORIF. 2. History of recent urinary tract infection. 3. Diabetes. RECOMMENDATIONS AND PLAN: Continue current physical therapy. Continue current medications. The mike tom is responding very well to current treatment regimen. Dictated By: ISAAC CRAWFORD/CHARLIE Conf#: [id number] DID#: [id number]
[2016-11-09] MEDS: oxyCODONE 5 MG TAB PO SCH (06:14)
[2016-11-09 07:59] VITALS: BP 122/79; RESP 18
[2016-11-09] MEDS: NATEGLINIDE 60 MG TAB PO SCH ×3 (08:04→17:39)
[2016-11-09] MEDS: TRIMETHOPRIM/SULFAMETHOX (DS) TAB PO SCH ×2 (08:04→20:51)
[2016-11-09] MEDS: LINAGLIPTIN 5 MG TABLET PO SCH (08:04)
[2016-11-09] MEDS: HYDROCODONE/APAP (5/325) TAB PO PRN ×2 (08:05→15:26)
[2016-11-09] MEDS: metFORMIN 500 MG TAB PO SCH ×2 (08:05→17:39)
[2016-11-09] MEDS: FAMOTIDINE 20 MG TAB PO SCH (08:05)
[2016-11-09] MEDS: METOPROLOL (XL) 50 MG TAB PO SCH (08:06)
[2016-11-09] MEDS: ENOXAPARIN 40 MG/0.4 ML SYG SC SCH (08:09)
[2016-11-09] MEDS: INSULIN ASPART [NOVOLOG] 3 ML PEN SC SCH ×2 (08:09→12:00)
--- NOTE | 2016-11-09 10:56 | CONS ---
Date/Time of Note Date/Time of Note DATE: 11/09/16 TIME: 10:56 Assessment/Plan Assessment/Plan Chief Complaint/Hosp Course dictated [id number] Problems: Consultation Date/Type/Reason Admit Date/Time Oct 27, 2016 at 14:58 Type of Consultation: medicine 24 HR Interval Summary Free Text/Dictation Note dictated. [id number]. Exam/Review of Systems Vital Signs Vitals Vital Signs Date Time Temp Pulse Resp B/P Pulse Ox O2 Delivery O2 Flow Rate FiO2 11/09/16 07:59 98.0 68 18 122/79 98 11/05/16 08:01 Room Air Intake and Output 11/08/16 11/08/16 11/09/16 15:00 23:00 07:00 Intake Total 820 ml 800 ml Output Total 420 ml Balance 400 ml 800 ml Results Results 24 hrs Laboratory Tests Test 11/08/16 12:05 11/08/16 17:43 11/08/16 20:35 11/09/16 07:53 Bedside Glucose 70 175 160 189 Medications Medications Current Medications Acetaminophen (Tylenol Tab) 650 mg Q6H PRN PO PAIN LEVEL 1-3 OR FEVER Last administered on 11/01/16t 21:32; Admin Dose 650 MG; Start 10/27/16 at 17:00 Magnesium Hydroxide (Milk Of Mag) 30 ml DAILY PRN PO CONSTIPATION; Start at 17:00 Bisacodyl (Dulcolax) 5 mg DAILY PRN PO CONSTIPATION; Start 10/27/16 at 17:00 Bisacodyl (Dulcolax Supp) 10 mg DAILY PRN [place] CONSTIPATION; Start 10/27/16 at 17: 00 Sodium Biphosphate/ Sodium Phosphate (Fleet Enema) 133 ml DAILY PRN [place] CONSTIPATION; Start 10/27/16 at 17:00 Glucose (Glutose) 22.5 gm Q15M PRN PO DECREASED GLUCOSE; Start 10/27/16 at 17:00 Dextrose (D50w Syringe) 25 ml Q15M PRN IV DECREASED GLUCOSE; Start 10/27/16 at 17:00 Dextrose (D50w Syringe) 50 ml Q15M PRN IV DECREASED GLUCOSE; Start 10/27/16 at 17:00 Glucagon (Glucagen) 1 mg Q15M PRN IM DECREASED GLUCOSE; Start 10/27/16 at 17:00 Glucose (Glutose) 15 gm Q15M PRN BUCCAL DECREASED GLUCOSE; Start 10/27/16 at 17: 00 Acetaminophen/ Hydrocodone Bitart ([place] (5/325)) 1 tab Q4H PRN PO PAIN LEVEL 1 -3 Last administered on 11/02/16 08:43; Admin Dose 1 TAB; Start 10/27/16 at 17: 00 Acetaminophen/ Hydrocodone Bitart ([place] (5/325)) 2 tab Q4H PRN PO PAIN LEVEL 4 -7 Last administered on 11/09/16 08:05; Admin Dose 2 TAB; Start 10/27/16 at 17: 00 Enoxaparin Sodium (Lovenox) 40 mg DAILY SC Last administered on 11/09/16 08:09 ; Admin Dose 40 MG; Start 10/28/16 at 09:00 Famotidine (Pepcid) 20 mg DAILY PO Last administered on 11/09/16 08:05; Admin Dose 20 MG; Start 10/28/16 at 09:00 Senna/Docusate Sodium (Senokot-S) 2 tab HS PO Last administered on 11/08/16 20 :40; Admin Dose 2 TAB; Start 10/27/16 at 21:00 Miscellaneous Information 1 ea NOTE XX ; Start 10/27/16 at 17:00 Ergocalciferol (Drisdol) 50,000 unit Buenrostro@09 PO Last administered on 11/07/16 09 :24; Admin Dose 50,000 UNIT; Start 10/31/16 at 09:00; Stop 01/29/17 at 08:59 Trimethoprim/ Sulfamethoxazole (Bactrim (Ds)) 1 tab BID PO Last administered on 11/09/16 08:04; Admin Dose 1 TAB; Start 11/02/16 at 21:00 Oxycodone HCl (Roxicodone) 10 mg Q4H PRN PO pain 8-10 Last administered on 11/04 12:57; Admin Dose 10 MG; Start 11/04/16 at 13:00 Oxycodone HCl (Roxicodone) 10 mg DAILY@06 PO Last administered on 11/09/16 06: 14; Admin Dose 10 MG; Start 11/05/16 at 06:00 Eye Lubricant (Artificial Tears Oph) 2 drop Q6H PRN BOTH EYES DRY EYES; Start 11/04/16 at 16:00 Linagliptin (Tradjenta) 5 mg DAILY PO Last administered on 11/09/16 08:04; Admin Dose 5 MG; Start 11/08/16 at 14:00 Metoprolol Succinate (Toprol Xl) 50 mg DAILY PO Last administered on 11/09/16 08:06; Admin Dose 50 MG; Start 11/08/16 at 14:00 Atorvastatin Calcium (Lipitor) 40 mg HS PO Last administered on 11/08/16 20:38 ; Admin Dose 40 MG; Start 11/08/16 at 21:00 ISAAC GREGG Nov 09, 2016 10:56
--- NOTE | 2016-11-09 11:17 | PN ---
Date/Time of Note Date/Time of Note DATE: 11/09/16 TIME: 11:14 Assessment/Plan Lines/Catheters IV Catheter Type (from Nrsg): Saline Lock Urinary Cath still in place: No Assessment/Plan Assessment/Plan 1. Right intertrochanteric hip fracture s/p fall, treated with ORIF, with impaired mobility/gait/ADLs. Continue PT/OT. 2. Acute post operative pain syndrome. Pain controlled. Continue current regimen including oxycodone and norco. 3. Diabetes mellitus type 2. Monitor blood sugars. Endocrinology has adjusted regimen. 4. Anemia. Monitor hemoglobin/hematocrit. Internal medicine managing. 5. Klebsiella UTI. Continue antibiotics. 6. Hypertension. BP controlled. Continue medical management per internal medicine. Subjective 24 Hr Interval Summary Free Text/Dictation Rehab progress note Subjective: Reports moderate pain in right hip after ambulating with therapies. ROS: Denies chest pain, no shortness of breath, no abdominal pain, no nausea, no vomiting, no chills. Exam/Review of Systems Vital Signs Vitals Vital Signs Date Time Temp Pulse Resp B/P Pulse Ox O2 Delivery O2 Flow Rate FiO2 11/09/16 07:59 98.0 68 18 122/79 98 11/05/16 08:01 Room Air Intake and Output 11/08/16 11/08/16 11/09/16 15:00 23:00 07:00 Intake Total 820 ml 800 ml Output Total 420 ml Balance 400 ml 800 ml Exam General: Awake, alert, no acute distress CV: Regular rate, s1s2 audible Lungs: Clear to auscultation, no wheezing Abdomen soft, nontender Extremities without cyanosis, no new swelling Neuro: No new focal changes. Follows simple commands. Results Results 24 hrs Laboratory Tests Test 11/08/16 12:05 11/08/16 17:43 11/08/16 20:35 11/09/16 07:53 Bedside Glucose 70 175 160 189 Medications Medications Current Medications Acetaminophen (Tylenol Tab) 650 mg Q6H PRN PO PAIN LEVEL 1-3 OR FEVER Last administered on 11/01/16t 21:32; Admin Dose 650 MG; Start 10/27/16 at 17:00 Magnesium Hydroxide (Milk Of Mag) 30 ml DAILY PRN PO CONSTIPATION; Start at 17:00 Bisacodyl (Dulcolax) 5 mg DAILY PRN PO CONSTIPATION; Start 10/27/16 at 17:00 Bisacodyl (Dulcolax Supp) 10 mg DAILY PRN [place] CONSTIPATION; Start 10/27/16 at 17: 00 Sodium Biphosphate/ Sodium Phosphate (Fleet Enema) 133 ml DAILY PRN [place] CONSTIPATION; Start 10/27/16 at 17:00 Glucose (Glutose) 22.5 gm Q15M PRN PO DECREASED GLUCOSE; Start 10/27/16 at 17:00 Dextrose (D50w Syringe) 25 ml Q15M PRN IV DECREASED GLUCOSE; Start 10/27/16 at 17:00 Dextrose (D50w Syringe) 50 ml Q15M PRN IV DECREASED GLUCOSE; Start 10/27/16 at 17:00 Glucagon (Glucagen) 1 mg Q15M PRN IM DECREASED GLUCOSE; Start 10/27/16 at 17:00 Glucose (Glutose) 15 gm Q15M PRN BUCCAL DECREASED GLUCOSE; Start 10/27/16 at 17: 00 Acetaminophen/ Hydrocodone Bitart ([place] (5/325)) 1 tab Q4H PRN PO PAIN LEVEL 1 -3 Last administered on 11/02/16 08:43; Admin Dose 1 TAB; Start 10/27/16 at 17: 00 Acetaminophen/ Hydrocodone Bitart ([place] (5/325)) 2 tab Q4H PRN PO PAIN LEVEL 4 -7 Last administered on 11/09/16 08:05; Admin Dose 2 TAB; Start 10/27/16 at 17: 00 Enoxaparin Sodium (Lovenox) 40 mg DAILY SC Last administered on 11/09/16 08:09 ; Admin Dose 40 MG; Start 10/28/16 at 09:00 Famotidine (Pepcid) 20 mg DAILY PO Last administered on 11/09/16 08:05; Admin Dose 20 MG; Start 10/28/16 at 09:00 Senna/Docusate Sodium (Senokot-S) 2 tab HS PO Last administered on 11/08/16 20 :40; Admin Dose 2 TAB; Start 10/27/16 at 21:00 Miscellaneous Information 1 ea NOTE XX ; Start 10/27/16 at 17:00 Ergocalciferol (Drisdol) 50,000 unit Bu[place]rostro@09 PO Last administered on 11/07/16 09 :24; Admin Dose 50,000 UNIT; Start 10/31/16 at 09:00; Stop 01/29/17 at 08:59 Trimethoprim/ Sulfamethoxazole (Bactrim (Ds)) 1 tab BID PO Last administered on 11/09/16 08:04; Admin Dose 1 TAB; Start 11/02/16 at 21:00 Oxycodone HCl (Roxicodone) 10 mg Q4H PRN PO pain 8-10 Last administered on 11/04 12:57; Admin Dose 10 MG; Start 11/04/16 at 13:00 Oxycodone HCl (Roxicodone) 10 mg DAILY@06 PO Last administered on 11/09/16 06: 14; Admin Dose 10 MG; Start 11/05/16 at 06:00 Eye Lubricant (Artificial Tears Oph) 2 drop Q6H PRN BOTH EYES DRY EYES; Start 11/04/16 at 16:00 Linagliptin (Tradjenta) 5 mg DAILY PO Last administered on 11/09/16 08:04; Admin Dose 5 MG; Start 11/08/16 at 14:00 Metoprolol Succinate (Toprol Xl) 50 mg DAILY PO Last administered on 11/09/16 08:06; Admin Dose 50 MG; Start 11/08/16 at 14:00 Atorvastatin Calcium (Lipitor) 40 mg HS PO Last administered on 11/08/16 20:38 ; Admin Dose 40 MG; Start 11/08/16 at 21:00 JOSHUA ALEMAN Nov 09, 2016 11:17
--- NOTE | 2016-11-09 11:47 | PN ---
DATE: 11/09/2016 MEDICINE PROGRESS NOTE SUBJECTIVE: Mr. Simpson's condition is stable. The patient denies shortness of breath, chest pain, abdominal pain, nausea, vomiting. The patient has been ambulatory, complains of very minimal righ t hip pain. PHYSICAL EXAMINATION: GENERAL: Elderly male, awake, alert, currently in no distress. VITAL SIGNS: Temperature 98 degrees Fahrenheit, blood pressure 122/64, respiratory rate is 18 per m inute, heart rate 80 per minute, O2 saturation 97% on room air. HEENT/NECK: Supple. No JVD. No lymphadenopathy. Midline trachea. No thyromegaly. Pharynx clear . No neck bruits. CHEST: Clear to auscultation. HEART: S1, S2 audible. No murmurs, regular rhythm. ABDOMEN: Soft, nontender, bowel sounds audible. EXTREMITIES: No edema. Pulses 1+ bilaterally. NEUROLOGIC: No focal deficit. ASSESSMENT: 1. The patient admitted for rehab after sustaining a fall resulting in right hip fracture, status p ost open reduction internal fixation. 2. Diabetes. 3. History of recent urinary tract infection. PLAN: Continue current treatment. The patient responding well to physical therapy. Dictated By: ISAAC CRAWFORD/CHARLIE Conf#: [id number] DID#: [id number]
--- NOTE | 2016-11-09 13:56 | CONS ---
Date/Time of Note Date/Time of Note DATE: 11/09/16 TIME: 13:51 Assessment/Plan Assessment/Plan Problems: (1) Diabetes mellitus type 2 in nonobese Status: Chronic Comment: With transition over to an oral based regimen he has had a very positive outcome. He is not on insulin and his sugars have come down nicely. Please note were using a more expanded regimen that he did as an outpatient and expect good report results without hypoglycemia (2) Vitamin D deficiency Status: Chronic Comment: Being replaced (3) Diastolic dysfunction Status: Chronic Comment: Noted and controlled with blood pressure medications (4) Essential hypertension Status: Chronic Comment: Noted and controlled with blood pressure medicines (5) Closed right hip fracture Status: Acute Comment: Going through rehabilitation successfully Qualifiers: (6) UTI due to Klebsiella species Status: Acute Comment: Completing oral antibiotics for this today (7) Status post-operative repair of hip fracture Status: Acute Comment: Stable postoperative course Consultation Date/Type/Reason Admit Date/Time Oct 27, 2016 at 14:58 Date of Consultation: Nov 08, 2016 Type of Consultation: Endocrinology Reason for Consultation Diabetes mellitus type 2 with patient request to not use insulin therapeutics; hypertension; diastolic dysfunction; Referring Provider: JOSHUA ALEMAN Hx of Present Illness Pleasant 66-year-old Vietnamese gentleman status post fall with hip fracture requiring ORIF. He is in the rehabilitation unit. He has a history of diabetes mellitus type 2 treated with oral agents as an outpatient. His regimen at that time was metformin with glimepiride. With that he had in adequate total control. He was transitioned to an insulin-based therapeutic regimen during the hospitalization for safety and simplicity. As he is now approaching time for discharge she requests to not be on insulin. He has no specific known complications of his diabetes denying any known neuropathy retinopathy nephropathy cerebrovascular disease cardiovascular disease or peripheral vascular disease. Constitutional: no complaints Eyes: no complaints Respiratory: no complaints Cardiovascular: no complaints Gastrointestinal: no complaints Genitourinary: no complaints Musculoskeletal: other Skin: no complaints Neurologic: no complaints (No symptoms consistent with neuropathy) Past Medical History Medical History: diabetes, high cholesterol, hypertension Past Surgical History Status post ORIF of a hip fracture Past Surgical Hx: no surgical history Family History Significant Family History: diabetes, hypertension Social History Alcohol Use: none Smoking Status: Never smoker Drug Use: none Exam/Review of Systems Vital Signs Vitals Vital Signs Date Time Temp Pulse Resp B/P Pulse Ox O2 Delivery O2 Flow Rate FiO2 11/09/16 07:59 98.0 68 18 122/79 98 11/05/16 08:01 Room Air Intake and Output 11/08/16 11/08/16 11/09/16 15:00 23:00 07:00 Intake Total 820 ml 800 ml Output Total 420 ml Balance 400 ml 800 ml Exam Constitutional: alert, oriented Neck: non-tender, supple Respiratory: clear to auscultation, normal air movement Cardiovascular: nl pulses, regular rate and rhythm Gastrointestinal: nl liver, spleen, non-tender, soft Extremities: normal pulses Neurological: HUMAN RESOURCES ADMINISTRATOR II-XII intact, nl mental status, nl speech, nl strength Skin: nl turgor Results Results 24 hrs Laboratory Tests Test 11/08/16 17:43 11/08/16 20:35 11/09/16 07:53 11/09/16 12:02 Bedside Glucose 175 160 189 92 Medications Medications Current Medications Acetaminophen (Tylenol Tab) 650 mg Q6H PRN PO PAIN LEVEL 1-3 OR FEVER Last administered on 11/01/16t 21:32; Admin Dose 650 MG; Start 10/27/16 at 17:00 Magnesium Hydroxide (Milk Of Mag) 30 ml DAILY PRN PO CONSTIPATION; Start at 17:00 Bisacodyl (Dulcolax) 5 mg DAILY PRN PO CONSTIPATION; Start 10/27/16 at 17:00 Bisacodyl (Dulcolax Supp) 10 mg DAILY PRN [place] CONSTIPATION; Start 10/27/16 at 17: 00 Sodium Biphosphate/ Sodium Phosphate (Fleet Enema) 133 ml DAILY PRN [place] CONSTIPATION; Start 10/27/16 at 17:00 Glucose (Glutose) 22.5 gm Q15M PRN PO DECREASED GLUCOSE; Start 10/27/16 at 17:00 Dextrose (D50w Syringe) 25 ml Q15M PRN IV DECREASED GLUCOSE; Start 10/27/16 at 17:00 Dextrose (D50w Syringe) 50 ml Q15M PRN IV DECREASED GLUCOSE; Start 10/27/16 at 17:00 Glucagon (Glucagen) 1 mg Q15M PRN IM DECREASED GLUCOSE; Start 10/27/16 at 17:00 Glucose (Glutose) 15 gm Q15M PRN BUCCAL DECREASED GLUCOSE; Start 10/27/16 at 17: 00 Acetaminophen/ Hydrocodone Bitart ([place] (5/325)) 1 tab Q4H PRN PO PAIN LEVEL 1 -3 Last administered on 11/02/16 08:43; Admin Dose 1 TAB; Start 10/27/16 at 17: 00 Acetaminophen/ Hydrocodone Bitart ([place] (5/325)) 2 tab Q4H PRN PO PAIN LEVEL 4 -7 Last administered on 11/09/16 08:05; Admin Dose 2 TAB; Start 10/27/16 at 17: 00 Enoxaparin Sodium (Lovenox) 40 mg DAILY SC Last administered on 11/09/16 08:09 ; Admin Dose 40 MG; Start 10/28/16 at 09:00 Famotidine (Pepcid) 20 mg DAILY PO Last administered on 11/09/16 08:05; Admin Dose 20 MG; Start 10/28/16 at 09:00 Senna/Docusate Sodium (Senokot-S) 2 tab HS PO Last administered on 11/08/16 20 :40; Admin Dose 2 TAB; Start 10/27/16 at 21:00 Miscellaneous Information 1 ea NOTE XX ; Start 10/27/16 at 17:00 Ergocalciferol (Drisdol) 50,000 unit Buenrostro@09 PO Last administered on 11/07/16 09 :24; Admin Dose 50,000 UNIT; Start 10/31/16 at 09:00; Stop 01/29/17 at 08:59 Trimethoprim/ Sulfamethoxazole (Bactrim (Ds)) 1 tab BID PO Last administered on 11/09/16 08:04; Admin Dose 1 TAB; Start 11/02/16 at 21:00 Oxycodone HCl (Roxicodone) 10 mg Q4H PRN PO pain 8-10 Last administered on 11/04 12:57; Admin Dose 10 MG; Start 11/04/16 at 13:00 Oxycodone HCl (Roxicodone) 10 mg DAILY@06 PO Last administered on 11/09/16 06: 14; Admin Dose 10 MG; Start 11/05/16 at 06:00 Eye Lubricant (Artificial Tears Oph) 2 drop Q6H PRN BOTH EYES DRY EYES; Start 11/04/16 at 16:00 Linagliptin (Tradjenta) 5 mg DAILY PO Last administered on 11/09/16 08:04; Admin Dose 5 MG; Start 11/08/16 at 14:00 Metoprolol Succinate (Toprol Xl) 50 mg DAILY PO Last administered on 11/09/16 08:06; Admin Dose 50 MG; Start 11/08/16 at 14:00 Atorvastatin Calcium (Lipitor) 40 mg HS PO Last administered on 11/08/16 20:38 ; Admin Dose 40 MG; Start 11/08/16 at 21:00 STELLA MAC MD Nov 09, 2016 13:56
[2016-11-09] MEDS ORDERED: metFORMIN 500 MG TAB PO SCH (17:35)
[2016-11-09 20:51] VITALS: BP 112/69; RESP 18
[2016-11-09] MEDS: ATORVASTATIN 40 MG TAB PO SCH (20:51)
[2016-11-09] MEDS: SENNA/DOCUSATE NA (8.6MG/50MG) TAB PO SCH (20:54)
[2016-11-10] MEDS: oxyCODONE 5 MG TAB PO SCH (06:04)
[2016-11-10 07:34] VITALS: BP 127/76; RESP 18
[2016-11-10] MEDS: NATEGLINIDE 60 MG TAB PO SCH ×2 (07:51→11:36)
[2016-11-10] MEDS: metFORMIN 500 MG TAB PO SCH (07:51)
[2016-11-10] MEDS: FAMOTIDINE 20 MG TAB PO SCH (08:24)
[2016-11-10] MEDS: LINAGLIPTIN 5 MG TABLET PO SCH (08:24)
[2016-11-10] MEDS: ENOXAPARIN 40 MG/0.4 ML SYG SC SCH (08:24)
[2016-11-10] MEDS: TRIMETHOPRIM/SULFAMETHOX (DS) TAB PO SCH (08:24)
[2016-11-10] MEDS: METOPROLOL (XL) 50 MG TAB PO SCH (08:25)
--- NOTE | 2016-11-10 11:48 | PN ---
Date/Time of Note Date/Time of Note DATE: 11/10/16 TIME: 11:43 Assessment/Plan Lines/Catheters IV Catheter Type (from Nrsg): Saline Lock Urinary Cath still in place: No Assessment/Plan Assessment/Plan 1. Right intertrochanteric hip fracture s/p fall, treated with ORIF, with impaired mobility/gait/ADLs. See discharge summary for functional levels on discharge. 2. Acute post operative pain syndrome. Pain controlled. Continue prn norco for severe pain, prn tylenol for mild pain. 3. Diabetes mellitus type 2. Continue medical management per endocrinology. 4. Anemia. Monitor hemoglobin/hematocrit. Patient refused follow up CBC this morning. 5. Klebsiella UTI. Completed antibiotics. 6. Hypertension. BP controlled. Continue medical management per internal medicine. 7. Discharge to home today with home health therapies. [facility] fiscal clerk was used for this encounter. 40 minutes spent on this encounter, greater than 50% face to face time with patient and in coordination of patient care and counseling, including going over medications and follow up appointments on discharge. Patient expressed full understanding. Subjective 24 Hr Interval Summary Free Text/Dictation Rehab progress note Subjective/History: Denies any acute complaints at present. Patient refused labs this morning. ROS: Denies chest pain, no shortness of breath, no chills, no abdominal pain, no nausea, no constipation. Exam/Review of Systems Vital Signs Vitals Vital Signs Date Time Temp Pulse Resp B/P Pulse Ox O2 Delivery O2 Flow Rate FiO2 11/10/16 07:34 98.4 62 18 127/76 97 Intake and Output 11/09/16 11/09/16 11/10/16 15:00 23:00 07:00 Intake Total 1200 ml 600 ml 1000 ml Output Total 200 ml 500 ml Balance 1000 ml 600 ml 500 ml Exam General: Awake, alert, no acute distress CV: Regular rate, s1s2 Lungs clear to auscultation, no wheezing Abdomen soft, nontender Extremities: Right hip surgical site with steristrips in place, clean and dry. No new swelling. Neuro: No new focal changes. Follows simple commands. Results Results 24 hrs Laboratory Tests Test 11/09/16 12:02 11/09/16 17:10 11/09/16 20:17 11/10/16 07:51 Bedside Glucose 92 142 159 175 Medications Medications Current Medications Acetaminophen (Tylenol Tab) 650 mg Q6H PRN PO PAIN LEVEL 1-3 OR FEVER Last administered on 11/01/16 21:32; Admin Dose 650 MG; Start 10/27/16 at 17:00 Magnesium Hydroxide (Milk Of Mag) 30 ml DAILY PRN PO CONSTIPATION; Start at 17:00 Bisacodyl (Dulcolax) 5 mg DAILY PRN PO CONSTIPATION; Start 10/27/16 at 17:00 Bisacodyl (Dulcolax Supp) 10 mg DAILY PRN [place] CONSTIPATION; Start 10/27/16 at 17: 00 Sodium Biphosphate/ Sodium Phosphate (Fleet Enema) 133 ml DAILY PRN [place] CONSTIPATION; Start 10/27/16 at 17:00 Glucose (Glutose) 22.5 gm Q15M PRN PO DECREASED GLUCOSE; Start 10/27/16 at 17:00 Dextrose (D50w Syringe) 25 ml Q15M PRN IV DECREASED GLUCOSE; Start 10/27/16 at 17:00 Dextrose (D50w Syringe) 50 ml Q15M PRN IV DECREASED GLUCOSE; Start 10/27/16 at 17:00 Glucagon (Glucagen) 1 mg Q15M PRN IM DECREASED GLUCOSE; Start 10/27/16 at 17:00 Glucose (Glutose) 15 gm Q15M PRN BUCCAL DECREASED GLUCOSE; Start 10/27/16 at 17: 00 Acetaminophen/ Hydrocodone Bitart ([place] (5/325)) 1 tab Q4H PRN PO PAIN LEVEL 1 -3 Last administered on 11/02/16 08:43; Admin Dose 1 TAB; Start 10/27/16 at 17: 00 Acetaminophen/ Hydrocodone Bitart ([place] (5/325)) 2 tab Q4H PRN PO PAIN LEVEL 4 -7 Last administered on 11/09/16 15:26; Admin Dose 2 TAB; Start 10/27/16 at 17: 00 Enoxaparin Sodium (Lovenox) 40 mg DAILY SC Last administered on 11/10/16 08:24 ; Admin Dose 40 MG; Start 10/28/16 at 09:00 Famotidine (Pepcid) 20 mg DAILY PO Last administered on 11/10/16 08:24; Admin Dose 20 MG; Start 10/28/16 at 09:00 Senna/Docusate Sodium (Senokot-S) 2 tab HS PO Last administered on 11/08/16 20 :40; Admin Dose 2 TAB; Start 10/27/16 at 21:00 Miscellaneous Information 1 ea NOTE XX ; Start 10/27/16 at 17:00 Ergocalciferol (Drisdol) 50,000 unit Buenrostro@09 PO Last administered on 11/07/16 09 :24; Admin Dose 50,000 UNIT; Start 10/31/16 at 09:00; Stop 01/29/17 at 08:59 Trimethoprim/ Sulfamethoxazole (Bactrim (Ds)) 1 tab BID PO Last administered on 11/10/16 08:24; Admin Dose 1 TAB; Start 11/02/16 at 21:00 Oxycodone HCl (Roxicodone) 10 mg Q4H PRN PO pain 8-10 Last administered on 11/04 12:57; Admin Dose 10 MG; Start 11/04/16 at 13:00 Oxycodone HCl (Roxicodone) 10 mg DAILY@06 PO Last administered on 11/10/16 06: 04; Admin Dose 10 MG; Start 11/05/16 at 06:00 Eye Lubricant (Artificial Tears Oph) 2 drop Q6H PRN BOTH EYES DRY EYES; Start 11/04/16 at 16:00 Linagliptin (Tradjenta) 5 mg DAILY PO Last administered on 11/10/16 08:24; Admin Dose 5 MG; Start 11/08/16 at 14:00 Metoprolol Succinate (Toprol Xl) 50 mg DAILY PO Last administered on 11/10/16 08:25; Admin Dose 50 MG; Start 11/08/16 at 14:00 Atorvastatin Calcium (Lipitor) 40 mg HS PO Last administered on 11/09/16 20:51 ; Admin Dose 40 MG; Start 11/08/16 at 21:00 JOSHUA ALMEAN Nov 10, 2016 11:48
[2016-11-10 14:00] LABS: MICROALBUMIN 0.4 mg/dL
== END 2016-11-10 14:21 | disposition home health service (06) | DRG 560 ==
LOC: VRC 14:58
PROVIDERS: ADMIT Physical Medicine & Rehabilitation; ATTEND Internal Medicine Pulmonary Disease
PROC: F07Z5ZZ Bed Mobility Treatment (ICD-10-PCS; principal; 2016-10-27)
PROC: F08Z2ZZ Grooming/Personal Hygiene Treatment (ICD-10-PCS; 2016-10-27)
DX: S72.141D Displaced intertrochanteric fracture of right femur, subsequent encounter for closed fracture with routine healing (principal); N39.0 Urinary tract infection, site not specified; E55.9 Vitamin D deficiency, unspecified; I10 Essential (primary) hypertension; E11.9 Type 2 diabetes mellitus without complications; B96.1 Klebsiella pneumoniae [K. pneumoniae] as the cause of diseases classified elsewhere; D64.9 Anemia, unspecified; E05.90 Thyrotoxicosis, unspecified without thyrotoxic crisis or storm; R52 Pain, unspecified; Z79.4 Long term (current) use of insulin; R50.9 Fever, unspecified; W18.30XD Fall on same level, unspecified, subsequent encounter
CPT/HCPCS: 71010; 73500; 80048; 80053; 81001; 82043; 82962; 83735; 84100; 84443; 85025; 87040; 87081; 87086; 97110; 97112; 97116; 97150; 97163; 97167; 97530; 97535; J1650; J1815